=== PATIENT | female | born 1930 ===

== ENCOUNTER 2017-06-26 08:38 | Inpatient (IN) | payer MEDICARE, MEDICAID ==
[2017-06-26 08:45] VITALS: BMI 33.4
[2017-06-26] MEDS ORDERED: Sodium Chloride 0.9% 1,000 ML IV STA ×2 (09:17)
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
[2017-06-26 09:49] LABS: VENOUS BLOOD GAS BASE EXCESS -3.3 mmol/L (0.0-2.0); VENOUS BLOOD GAS PCO2 51 mmHg (40-60); VENOUS BLOOD PH 7.28 (7.32-7.43)
[2017-06-26 10:04] LABS: BASO % 0.5 % (0.0-2.0); EOS # 0.2 K/uL (0.0-0.7); EOS % 2.1 % (0.0-4.0); HEMATOCRIT 39.8 % (34.0-47.0); LYMPH # 2.1 K/uL (1.0-4.3); LYMPH % 27.1 % (20.0-40.0); MEAN CELL VOLUME 99.4 fl (81.0-99.0); MEAN CORPUSCULAR HEMOGLOBIN 33.4 pg (27.0-31.0); MEAN CORPUSCULAR HGB CONC 33.6 g/dL (33.0-37.0); MEAN PLATELET VOLUME 10.3 fl (7.2-11.7); MONO # 0.7 K/uL (0.0-0.8); MONO % 9.1 % (0.0-10.0); NEUT # 4.8 K/uL (1.8-7.0); NEUT % 61.2 % (50.0-75.0); NRBC % 0.2 % (0.0-0.0); RED CELL DISTRIBUTION WIDTH 13.5 % (11.5-14.5); WHITE BLOOD COUNT 7.8 K/uL (4.8-10.8)
[2017-06-26 10:10] LABS: ALB/GLOB RATIO 1.3 (1.0-2.1); ALCOHOL SERUM 50 mg/dl (0-10); ALKALINE PHOSPHATASE 65 U/L (38-126); ALT/SGPT 36 U/L (9-52); AST/SGOT 32 U/L (14-36); BILIRUBIN,TOTAL 0.3 mg/dl (0.2-1.3); BLOOD UREA NITROGEN 26 mg/dl (7-17); CALCIUM 9.8 mg/dL (8.4-10.2); CARBON DIOXIDE 22 mmol/L (22-30); CHLORIDE 108 mmol/L (98-107); GFR AFRICAN-AMERICAN 52; GLUCOSE,RANDOM 162 mg/dL (65-105); POTASSIUM 4.6 MMOL/L (3.6-5.0); SODIUM 142 mmol/l (132-148)
[2017-06-26 10:32] LABS: URINE BACTERIA RARE (<OCC); URINE BILIRUBIN NEGATIVE (NEGATIVE); URINE BLOOD SMALL (NEGATIVE); URINE COLOR STRAW (YELLOW); URINE GLUCOSE (UA) NEG (Normal); URINE KETONE NEGATIVE (NEGATIVE); URINE LEUKOCYTE ESTERASE SMALL Leu/uL (Negative); URINE PROTEIN NEGATIVE (NEGATIVE); URINE UROBILINOGEN 0.2-1.0 mg/dL (0.2-1.0); WBC URINE 12 /hpf (0-5)
[2017-06-26 10:34] LABS: RBC URINE 8 /hpf (0-3)
[2017-06-26] MEDS ORDERED: Naproxen 500 MG TAB PO ONE ×2 (11:35→12:08)
--- NOTE | 2017-06-26 12:53 | MRI ---
PROCEDURE: MRI brain dated 07/23/2017. HISTORY: Syncope. Fall. COMPARISON: Comparison made with prior MRI brain 03/08/2015. TECHNIQUE: Multiplanar, multisequence MR images of the brain were obtained without intravenous contrast enhancement. Note the study is somewhat limited due to motion artifact. FINDINGS: HEMORRHAGE: The current study reveals what is felt to represent a very tiny amount of subarachnoid hemorrhage within the mid and posterior frontal sulci near the vertex. These changes are best seen on axial FLAIR images number sign 13 through 17. No evidence of hemosiderin deposition. DWI: The no evidence of acute infarct seen on diffusion-weighted sequence No evidence of an acute or early subacute infarction. BRAIN PARENCHYMA: No mass effect or edema. No atrophy or chronic microvascular ischemic changes. VENTRICLES: Unremarkable. No hydrocephalus. CRANIUM: There are no acute calvarial fractures however MRI is not the mild to assess for calvarial fracture and given the subarachnoid hemorrhage, follow-up CT scan would be better suited to evaluate calvarial fractures. ORBITS: Changes of left-sided cataract surgery again noted. PARANASAL SINUSES/MASTOIDS: Clear VASCULAR SYSTEM: Visualized major vascular flow voids at skull base are patent. OTHER FINDINGS: None. IMPRESSION: Limited motion degraded study. There is a tiny amount of subarachnoid hemorrhage seen within bilateral mid and posterior frontal sulci at the vertex as described ; the amount, appearance and location of which is most consistent with posttraumatic subarachnoid hemorrhage. No evidence of acute infarct. Mild generalized volume loss. These findings discussed with Dr. Banks at approximately 12:30 p.m. with written down and read back verification of
--- NOTE | 2017-06-26 13:38 | RAD ---
PROCEDURE: Pelvis dated 06/26/2017. HISTORY: Status post fall COMPARISON: Comparison made with radiographs of the right hip dated 02/20/2014. FINDINGS: BONES: No evidence of acute displaced fracture nor dislocation. Both femoral heads are appropriately located within the respective acetabula. Mild bilateral hip joint space narrowing. Mild enthesophyte that changes seen arising from the lateral margins of both iliac wings. Mild degenerative spondylosis lower lumbosacral spine. JOINTS: As above. OTHER FINDINGS: None. IMPRESSION: No acute fractures. If symptoms persist or occult fracture suspected clinically consider followup on CT scan of the pelvis and both hips. Mild DJD.
--- NOTE | 2017-06-26 15:02 | RAD ---
PROCEDURE: Left Wrist Radiographs. HISTORY: fall with deformity COMPARISON: None. FINDINGS: BONES: There is a comminuted intra-articular fracture of the distal left radius and fracture of the ulna styloid with possible fracture of the distal ulna as well. JOINTS: Triscaphe degenerative osteoarthritis with degenerative changes of the trapezial/ 1st and CP joint. SOFT TISSUES: There appears be minor surrounding soft tissue swelling. OTHER FINDINGS: None. IMPRESSION: Comminuted intra-articular fracture of the distal left radius and fracture of the ulna styloid. There may also be a fracture of the distal ulna as well. Clinical correlation recommended. DJD as above.
--- NOTE | 2017-06-26 15:53 | RAD ---
PROCEDURE: CHEST RADIOGRAPH, 1 VIEW HISTORY: fall for admission COMPARISON: Comparison made with chest radiograph 05/14/2013 FINDINGS: LUNGS: Minor bibasilar atelectasis. There is a vague round/elliptical shaped radiopaque density in the left CP angle region which could represent confluence of shadow artifact however possibility of a parenchymal nodule should be excluded and therefore followup nonemergent CT scan of the chest is recommended. PLEURA: Suspect minor biapical pleural thickening. No pneumothorax or pleural fluid seen. CARDIOVASCULAR: Heart appears mildly enlarged. Aorta minimally ectatic and uncoiled. OSSEOUS STRUCTURES: No significant abnormalities. VISUALIZED UPPER ABDOMEN: Normal. OTHER FINDINGS: None. IMPRESSION: Minor bibasilar atelectasis. There is a vague round/elliptical shaped radiopaque density in the left CP angle region which could represent confluence of shadow artifact however possibility of a parenchymal nodule should be excluded and therefore followup nonemergent CT scan of the chest is recommended. Note this report was placed in PA review folder for followup. .
[2017-06-26] MEDS ORDERED: Sodium Chloride 0.9% 1,000 ML IV SCH (16:00)
[2017-06-26] MEDS ORDERED: Glucagon Recombinant 1 mg Inj IM PRN (16:03)
[2017-06-26] MEDS ORDERED: Dextrose 50% SYRINGE Inj (50 ml) IV PRN (16:03)
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
[2017-06-26] MEDS ORDERED: Insulin Lispro (humaLOG) 100 Units/ml Inj SC SCH (16:30)
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
[2017-06-26] MEDS: Insulin Lispro (humaLOG) 100 Units/ml Inj SC SCH ×2 (18:39→23:26)
[2017-06-26] MEDS: Insulin Detemir 100 Units/ml Inj SC SCH (23:02)
[2017-06-27] MEDS ORDERED: Influenza Vaccine 18yr & older 0.5 ML/45 MCG SYR IM ONE (07:48)
[2017-06-27] MEDS: Insulin Regular 100 units/ml SC SCH ×3 (07:56→17:02)
--- NOTE | 2017-06-27 08:50 | CP.PCM.PN ---
Subjective - Date & Time of Evaluation Date of Evaluation: 06/27/17 Time of Evaluation: 08:48 - Subjective Subjective: Family Medicine Progress Note - Dr. Coreas 86 y/o female seen at bedside this morning for subarachnoid hemorrhage s/p fall/ syncopal episode. [employer] #[id number] utilized for [employer]. Pt denies any acute events overnight and says she slept well. Pt still cannot remember how she fell and denies feeling dizzy or lightheaded prior to falling. Pt says that she can only remember waking up on the floor. At present, pt says her only pain is in her left wrist. Pt denies having any head pain or headache. Pt denies F/C/N/V/CP/SOB. Pt says she feels generally well today. Objective - Vital Signs/Intake and Output Vital Signs (last 24 hours): Temp Pulse Resp BP Pulse Ox 97.6 F 63 20 170/73 H 98 06/27/17 08:09 06/27/17 08:09 06/27/17 08:09 06/27/17 08:09 06/27/17 08:09 - Medications Medications: Current Medications Acetaminophen (Tylenol 325mg Tab) 650 mg PO Q6 PRN PRN Reason: Pain, moderate (4-7) Atorvastatin Calcium (Lipitor) 40 mg PO HS [facility] Last Admin: 06/26/17 23:03 Dose: 40 mg Chlorthalidone (Hygroton) 12.5 mg PO DAILY [facility] Dextrose (Dextrose 50% Inj) 0 ml IV STAT PRN; Protocol PRN Reason: Hypoglycemia Protocol Dextrose (Glutose 15) 0 gm PO ONCE PRN; Protocol PRN Reason: Hypoglycemia Protocol Glucagon (Glucagen Diagnostic Kit) 0 mg IM STAT PRN; Protocol PRN Reason: Hypoglycemia Protocol Insulin Detemir (Levemir) 18 units SC HS [facility] Last Admin: 06/26/17 23:02 Dose: 18 units Insulin Human Lispro (Humalog) 0 units SC ACHS [facility] PRN Reason: Protocol Last Admin: 06/26/17 23:26 Dose: Not Given Insulin Human Regular (Humulin R) 4 units SC AC [facility] Lisinopril (Zestril) 40 mg PO DAILY [facility] Multivitamins/Minerals (Therapeutic-M Tab) 1 tab PO DAILY [facility] Ondansetron HCl (Zofran Inj) 4 mg IVP Q6 PRN PRN Reason: Nausea/Vomiting Sertraline HCl (Zoloft) 100 mg PO DAILY [facility] Sitagliptin Phosphate (Januvia) 50 mg PO DAILY [facility] - Labs Labs: 06/26/17 09:50 06/26/17 09:50 PT 11.6 Seconds (9.8-13.1) 06/26/17 09:50 INR 1.0 (0.9-1.2) 06/26/17 09:50 APTT 29.0 Seconds (25.6-37.1) 06/26/17 09:50 - Constitutional Appears: Well, Non-toxic, No Acute Distress - Head Exam Head Exam: NORMOCEPHALIC Additional comments: s/p left head contusion, no gross deformity noted Ecchymosis noted to left upper lip - Eye Exam Eye Exam: EOMI, Normal appearance Pupil Exam: PERRL - ENT Exam ENT Exam: Mucous Membranes Moist, Normal Exam - Neck Exam Neck Exam: Full ROM, Normal Inspection. absent: Lymphadenopathy, Tenderness - Respiratory Exam Respiratory Exam: Clear to Ausculation Bilateral, NORMAL BREATHING PATTERN. absent: Chest Wall Tenderness, Rales, Wheezes, Respiratory Distress, Stridor - Cardiovascular Exam Cardiovascular Exam: REGULAR RHYTHM, +S1, +S2. absent: Gallop, JVD - GI/Abdominal Exam GI & Abdominal Exam: Soft, Normal Bowel Sounds - Rectal Exam Rectal Exam: Deferred - Extremities Exam Extremities Exam: Normal Capillary Refill, Normal Inspection. absent: Calf Tenderness, Pedal Edema Additional comments: splint intact to left wrist and forearm - Neurological Exam Neurological Exam: Alert, Awake, Oriented x3 - Psychiatric Exam Psychiatric exam: Normal Affect, Normal Mood - Skin Skin Exam: Dry, Intact, Warm Assessment and Plan - Assessment and Plan (Free Text) Assessment: 86 y/o female with PMhx of HTN, IDDM2, HLD, s/p CVA admitted for syncope with traumatic subarachnoid hemorrhage and left distal ulna/radius fracture Plan: 1) Syncope -possibly secondary to seizure/arrythmia/ETOH -s/p 2 L NS in ED due to elevated total creatinine kinase (total OO=298) -Prior ECHO in 09/2016: normal LVEF, normal systolic function -continue to monitor in telemetry -Dr. Alcantara consulted for cardiology -Repeat ECHO shows normal LVEF, normal LV size and wall thickness, mild dilation of L atrium, mild tricuspid regurgitation -As per Neurology: brain MRI w/o contrast, CTA head/neck and EEGs ordered -per radiology, CTA head/neck cannot be performed due to patient's kidney function (cannot give contrast) -Aggrenox held until repeat CT, f/u results -continue PT/OT -c/w home meds 2) Traumatic Subarachnoid Hemorrhage -Brain MRI shows trace amount of subarachnoid hemorrhage in bilateral mid and posterior frontal sulci -Neurosurgery consulted Dr. Hayes -no surgical intervention at this time -pt cleared for D/C from neurosurgery standpoint -f/u repeat CT today -continue PT/OT 3) Left Distal Ulna/Radius Fracture -currently in wrist splint -pain control -Dr. Alcantara consulted, recommendations appreciated -CT of LUE pending -Vit D levels pending -start Calcium/Vit D 4) IDDM2 -stable -c/w home meds, however Regular Insulin substituted for Humalog 2/2 to shortage -HbA1C in 02/2017: 7.7 -insulin coverage scale -monitor BS 5) HTN -c/w home meds -started on Amlodipine per Dr. Alcantara -monitor BP 6) Chronic Kidney Disease -Stage 3B -improving as when compared to 01/2017 values -BUN/Cr: 26/1.2 -GFR: 43 -2L IV NS hydration given -monitor 7) Insomnia -c/w Zoloft (home med), dose decreased 8) Diet -heart healthy/low carb diet 9) Code Status -Full Code 10) DVT Prophylaxis -SCDs at present -Aggrenox held until repeat CT head
[2017-06-27] MEDS: Multivitamin With Minerals Tab PO SCH (09:12)
[2017-06-27] MEDS: Insulin Lispro (humaLOG) 100 Units/ml Inj SC SCH ×4 (09:14→23:18)
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
--- NOTE | 2017-06-27 10:16 | CP.PCM.PN ---
Subjective - Date & Time of Evaluation Date of Evaluation: 06/27/17 Time of Evaluation: 10:15 - Subjective Subjective: s/p fall MRI shows small trace of subarchnoid blood no deficts awakw alert clear for d/c home from my point of view Objective - Vital Signs/Intake and Output Vital Signs (last 24 hours): Temp Pulse Resp BP Pulse Ox 97.6 F 63 20 170/73 H 98 06/27/17 08:09 06/27/17 09:13 06/27/17 08:09 06/27/17 09:13 06/27/17 08:09 - Medications Medications: Current Medications Acetaminophen (Tylenol 325mg Tab) 650 mg PO Q6 PRN PRN Reason: Pain, moderate (4-7) Amlodipine Besylate (Norvasc) 10 mg PO DAILY [facility] Atorvastatin Calcium (Lipitor) 40 mg PO HS [facility] Last Admin: 06/26/17 23:03 Dose: 40 mg Chlorthalidone (Hygroton) 12.5 mg PO DAILY [facility] Dextrose (Dextrose 50% Inj) 0 ml IV STAT PRN; Protocol PRN Reason: Hypoglycemia Protocol Dextrose (Glutose 15) 0 gm PO ONCE PRN; Protocol PRN Reason: Hypoglycemia Protocol Glucagon (Glucagen Diagnostic Kit) 0 mg IM STAT PRN; Protocol PRN Reason: Hypoglycemia Protocol Insulin Detemir (Levemir) 18 units SC HS [facility] Last Admin: 06/26/17 23:02 Dose: 18 units Insulin Human Lispro (Humalog) 0 units SC [facility] PRN Reason: Protocol Last Admin: 06/27/17 09:14 Dose: Not Given Insulin Human Regular (Humulin R) 4 units SC AC [facility] Lisinopril (Zestril) 40 mg PO DAILY [facility] Last Admin: 06/27/17 09:13 Dose: 40 mg Multivitamins/Minerals (Therapeutic-M Tab) 1 tab PO DAILY [facility] Last Admin: 06/27/17 09:12 Dose: 1 tab Ondansetron HCl (Zofran Inj) 4 mg IVP Q6 PRN PRN Reason: Nausea/Vomiting Sertraline HCl (Zoloft) 100 mg PO DAILY [facility] Last Admin: 06/27/17 09:12 Dose: 100 mg Sitagliptin Phosphate (Januvia) 50 mg PO DAILY [facility] Last Admin: 06/27/17 09:12 Dose: 50 mg - Labs Labs: 06/26/17 09:50 06/26/17 09:50 PT 11.6 Seconds (9.8-13.1) 06/26/17 09:50 INR 1.0 (0.9-1.2) 06/26/17 09:50 APTT 29.0 Seconds (25.6-37.1) 06/26/17 09:50
--- NOTE | 2017-06-27 15:10 | CARD ---
APPROVED REPORT EXAM: Two-dimensional and M-mode echocardiogram with Doppler and color Doppler. Other Information Quality : AverageRhythm : NSR Technically limited study due to Pt has Briken LT Arm. INDICATION Syncope 2D DIMENSIONS IVSd0.87 (0.7-1.1cm)LVDd4.35 (3.9-5.9cm) LVOT Diameter2.06 (1.8-2.4cm)PWd0.65 (0.7-1.1cm) IVSs1.18 (0.8-1.2cm)LVDs2.42 (2.5-4.0cm) FS (%) 44.4 %PWs1.20 (0.8-1.2cm) M-Mode DIMENSIONS Left Atrium (MM)4.40 (2.5-4.0cm)IVSd0.69 (0.7-1.1cm) Aortic Root2.48 (2.2-3.7cm)LVDd6.25 (4.0-5.6cm) Aortic Cusp Exc.1.59 (1.5-2.0cm)PWd0.89 (0.7-1.1cm) IVSs1.26 cmFS (%) 37 % LVDs3.97 (2.0-3.8cm)PWs1.09 cm Mitral Valve MV E Amkycxqd85.4cm/sMV DECEL [id number] A Rpgxjurw61.2cm/s MV NTE97otX/A ratio1.0MVA (PHT)2.69cm2 TDI Lateral E' Peak V11.49cm/sMedial E' Peak V6.84cm/sE/Lateral E'7.2 E/Medial E'12.0 LEFT VENTRICLE The left ventricle is normal size. There is normal left ventricular wall thickness. The left ventricular function is normal. The left ventricular ejection fraction is - 70%. There is normal LV segmental wall motion. Transmitral Doppler flow pattern is Grade I-abnormal relaxation pattern. No left ventricle thrombus noted on this study. There is no ventricular septal defect visualized. There is no left ventricular aneurysm. There is no mass noted in the left ventricle. RIGHT VENTRICLE The right ventricle is normal size. There is normal right ventricular wall thickness. The right ventricular systolic function is normal. ATRIA The left atrium is mildly dilated. There is no thrombus suspected in the left atrium. The right atrium size is normal. The interatrial septum is intact with no evidence for an atrial septal defect. AORTIC VALVE The aortic valve is normal in structure. No aortic regurgitation is present. There is no aortic valvular stenosis. MITRAL VALVE The mitral valve is normal in structure. There is no evidence of mitral valve prolapse. There is no mitral valve stenosis. There is no mitral valve regurgitation noted. TRICUSPID VALVE The tricuspid valve is normal in structure. There is mild tricuspid regurgitation. There is no tricuspid valve prolapse or vegetation. There is no tricuspid valve stenosis. PULMONIC VALVE The pulmonary valve is normal in structure. doppler studies of the pulmonic valve were not performed GREAT VESSELS The aortic root is normal in size. The IVC is normal in size and collapses >50% with inspiration. PERICARDIAL EFFUSION The pericardium appears normal. There is no pleural effusion. <Conclusion> The left ventricle is normal in size and wall thickness. The left ventricular function is normal. The left ventricular ejection fraction is - 70%. The left atrium is mildly dilated. The mitral, aortic and tricuspid valves are normal. There is mild tricuspid regurgitation.
[2017-06-27] MEDS: Calcium-Vit D 500 mg-200 Units Tab UD PO SCH (17:00)
--- NOTE | 2017-06-27 19:01 | CT ---
PROCEDURE: CT HEAD WITHOUT CONTRAST. HISTORY: subarachnoid bleed COMPARISON: 11/01/2014 TECHNIQUE: Axial computed tomography images were obtained through the head/brain without intravenous contrast. Coronal and sagittal reconstructed images. Radiation dose: Total exam DLP = 1131.75 mGy-cm. This CT exam was performed using one or more of the following dose reduction techniques: Automated exposure control, adjustment of the mA and/or kV according to patient size, and/or use of iterative reconstruction technique. FINDINGS: HEMORRHAGE: No intracranial hemorrhage. BRAIN: No mass effect or edema. Age related senescent change Previously identified small cerebellar infarct on the right is not appreciated with same degree of clarity, however, the finding is unchanged. Small lacune or infarct on the right similarly unchanged. VENTRICLES: Unremarkable. No hydrocephalus. CALVARIUM: Unremarkable. PARANASAL SINUSES: Unremarkable as visualized. No significant inflammatory changes. MASTOID AIR CELLS: Unremarkable as visualized. No inflammatory changes. OTHER FINDINGS: None. IMPRESSION: No acute intracranial abnormalities. No significant findings to account for the clinical presentation. No significant interval change compared to the prior examination(s).
--- NOTE | 2017-06-27 20:08 | CT ---
EXAM: CT Left Upper Extremity Without Intravenous Contrast, Wrist EXAM DATE/TIME: 06/26/2017 7:47 PM CLINICAL HISTORY: 86 years old, female; Injury or trauma; Fall; Initial encounter; Fracture, traumatic injury; Closed fracture; Wrist; Left; Additional info: Left wrist FX as per ortho TECHNIQUE: Axial computed tomography images of the left wrist without intravenous contrast. All CT scans at this facility use one or more dose reduction techniques, viz.: automated exposure control; ma/kV adjustment per patient size (including targeted exams where dose is matched to indication; i.e. head); or iterative reconstruction technique. Coronal and sagittal reformatted images were created and reviewed. COMPARISON: Recent left wrist radiographs of 2017-06-26 FINDINGS: LIMITATIONS: Mild to moderate streak/motion artifact. BONES/JOINTS: Comminuted, intra-articular fracture of the distal radius. There is significant associated impaction of fracture fragments. There are at least 3 major fracture fragments. There is up to 3 mm separation of fracture fragments at the articular surface and slight depression at the articular surface. No evidence of significant associated angulation. Marked osteoarthritic changes at the first carpometacarpal joint. Degenerative subchondral cysts noted within multiple additional carpal bones. Alignment of the carpal bones is within normal limits. No additional acute fractures seen. IMPRESSION: - Acute, comminuted, intra-articular fracture of the distal radius, associated with significant impaction of fracture fragments. Please see above for a full description. - See above for remaining findings.
[2017-06-27] MEDS: Insulin Detemir 100 Units/ml Inj SC SCH (23:16)
[2017-06-28 05:41] LABS: BASO % 0.5 % (0.0-2.0); EOS # 0.3 K/uL (0.0-0.7); EOS % 3.5 % (0.0-4.0); HEMATOCRIT 34.4 % (34.0-47.0); LYMPH # 1.7 K/uL (1.0-4.3); LYMPH % 23.8 % (20.0-40.0); MEAN CELL VOLUME 99.9 fl (81.0-99.0); MEAN CORPUSCULAR HEMOGLOBIN 32.9 pg (27.0-31.0); MEAN CORPUSCULAR HGB CONC 32.9 g/dL (33.0-37.0); MEAN PLATELET VOLUME 10.5 fl (7.2-11.7); MONO # 0.6 K/uL (0.0-0.8); MONO % 8.2 % (0.0-10.0); NEUT # 4.7 K/uL (1.8-7.0); RED CELL DISTRIBUTION WIDTH 12.8 % (11.5-14.5); WHITE BLOOD COUNT 7.3 K/uL (4.8-10.8)
[2017-06-28 06:18] LABS: BLOOD UREA NITROGEN 17 mg/dl (7-17); CALCIUM 8.8 mg/dL (8.4-10.2); CARBON DIOXIDE 26 mmol/L (22-30); CHLORIDE 107 mmol/L (98-107); GFR AFRICAN-AMERICAN > 60; GLUCOSE,RANDOM 148 mg/dL (65-105); POTASSIUM 4.3 MMOL/L (3.6-5.0); SODIUM 138 mmol/l (132-148)
--- NOTE | 2017-06-28 06:39 | CP.PCM.CON ---
History of Present Illness - History of Present Illness History of Present Illness: Orthopedic consultation Dr. Alcantara 86F complains of left wrist pain after fall at home. Pain is severe. Denies numbness/tingling. Denies pain in other extremities, denies neck pain/back pain. She was also found to have head injury from the fall. Review of Systems - Review of Systems All systems: reviewed and no additional remarkable complaints except - Constitutional Additional comments: no fever/chills - Cardiovascular Additional comments: No CP - Respiratory Additional comments: No SOB - Musculoskeletal Musculoskeletal: As Per HPI - Integumentary Integumentary: As Per HPI - Neurological Neurological: As Per HPI - Hematologic/Lymphatic Hematologic: absent: As Per HPI, Easy Bleeding, Easy Bruising, Lymphadenopathy, Other Past Patient History - Past Medical History & Family History Past Medical History?: Yes Past Family History: Reviewed and not pertinent - Past Social History Smoking Status: Never Smoked - CARDIAC Hx Cardiac Disorders: Yes Hx Hypercholesterolemia: Yes Hx Hypertension: Yes - PULMONARY Hx Respiratory Disorders: No - NEUROLOGICAL Hx Neurological Disorder: Yes HX Cerebrovascular Accident: Yes - HEENT Hx Cataracts: Yes - RENAL Hx Chronic Kidney Disease: Yes Hx Dialysis: No - ENDOCRINE/METABOLIC Hx Endocrine Disorders: Yes Hx Diabetes Mellitus Type 2: Yes - HEMATOLOGICAL/ONCOLOGICAL Hx Blood Disorders: No Hx AIDS: No Hx Human Immunodeficiency Virus (HIV): No - INTEGUMENTARY Hx Dermatological Problems: No - MUSCULOSKELETAL/RHEUMATOLOGICAL Hx Falls: Yes - GASTROINTESTINAL Hx Constipation: Yes - GENITOURINARY/GYNECOLOGICAL Hx Genitourinary Disorders: No - PSYCHIATRIC Hx Psychophysiologic Disorder: Yes Hx Depression: Yes Hx Substance Use: No - SURGICAL HISTORY Hx Cataract Extraction: Yes Hx Herniorrhaphy: Yes (Abdominal hernia repair) Hx Hysterectomy: Yes - ANESTHESIA Hx Anesthesia: Yes Hx Anesthesia Reactions: No Hx Malignant Hyperthermia: No Has any member of the family had a problem w/ anesthesia?: No Meds Allergies/Adverse Reactions: Allergies Allergy/AdvReac Type Severity Reaction Status Date / Time No Known Allergies Allergy Verified 06/26/17 10:19 - Medications Medications: Current Medications Acetaminophen (Tylenol 325mg Tab) 650 mg PO Q6 PRN PRN Reason: Pain, moderate (4-7) Amlodipine Besylate (Norvasc) 10 mg PO DAILY [facility] Last Admin: 06/27/17 12:08 Dose: 10 mg Atorvastatin Calcium (Lipitor) 40 mg PO HS [facility] Last Admin: 06/27/17 23:16 Dose: 40 mg Calcium/Vitamin D (Oyster Shell Calcium/Vitamin D 500 Mg-200 Iu) 1 tab PO BIDWM [facility] Last Admin: 06/27/17 17:00 Dose: 1 tab Chlorthalidone (Hygroton) 12.5 mg PO DAILY [facility] Last Admin: 06/27/17 09:12 Dose: 12.5 mg Dextrose (Dextrose 50% Inj) 0 ml IV STAT PRN; Protocol PRN Reason: Hypoglycemia Protocol Dextrose (Glutose 15) 0 gm PO ONCE PRN; Protocol PRN Reason: Hypoglycemia Protocol Glucagon (Glucagen Diagnostic Kit) 0 mg IM STAT PRN; Protocol PRN Reason: Hypoglycemia Protocol Insulin Detemir (Levemir) 18 units SC [facility] Last Admin: 06/27/17 23:16 Dose: 18 units Insulin Human Lispro (Humalog) 0 units SC [facility] PRN Reason: Protocol Last Admin: 06/27/17 23:18 Dose: Not Given Insulin Human Regular (Humulin R) 4 units SC [facility] Last Admin: 06/27/17 17:02 Dose: 4 u Lisinopril (Zestril) 40 mg PO DAILY [facility] Last Admin: 06/27/17 09:13 Dose: 40 mg Multivitamins/Minerals (Therapeutic-M Tab) 1 tab PO DAILY [facility] Last Admin: 06/27/17 09:12 Dose: 1 tab Ondansetron HCl (Zofran Inj) 4 mg IVP Q6 PRN PRN Reason: Nausea/Vomiting Sertraline HCl (Zoloft) 50 mg PO DAILY [facility] Sitagliptin Phosphate (Januvia) 50 mg PO DAILY [facility] Last Admin: 06/27/17 09:12 Dose: 50 mg Physical Exam - Constitutional Appears: Well, No Acute Distress - Head Exam Additional comments: ecchymosis noted - Expanded Upper Extremities Exam Left Shoulder exam: normal inspection (non tender) Elbow exam: full ROM (non tender to elbow) Forearm Wrist exam: swelling Neuro motor exam: finger 2-5 abduction intact, thumb abduction, thumb IP flexion intact, thumb opposition intact, wrist extension intact Neurosensory exam: median nerve intact, radial nerve intact, ulnar nerve intact Vascular exam: normal capillary refill - Neurological Exam Neurological exam: Alert, Oriented x3 - Psychiatric Exam Psychiatric exam: Normal Affect, Normal Mood - Skin Skin Exam: Dry, Intact, Normal Color, Warm Results - Vital Signs Recent Vital Signs: Last Vital Signs Temp 98.6 F 06/28/17 05:00 Pulse 85 06/28/17 05:00 Resp 16 06/28/17 05:00 BP 150/69 06/28/17 05:00 Pulse Ox 96 06/28/17 05:00 - Labs Result Diagrams: 06/28/17 04:15 06/28/17 04:15 Labs: Laboratory Results - last 24 hr 06/27/17 06/27/17 06/27/17 11:43 16:41 21:23 WBC RBC Hgb Hct MCV MCH MCHC RDW Plt Count MPV Neut % (Auto) Lymph % (Auto) [place] % (Auto) Eos % (Auto) Baso % (Auto) Neut # Lymph # [place] # Eos # Baso # Sodium Potassium Chloride Carbon Dioxide Anion Gap BUN Creatinine Est GFR ( Amer) Est GFR (Non-Af Amer) POC Glucose (mg/dL) 205 H 276 H 265 H Random Glucose Calcium 06/28/17 06/28/17 06/28/17 04:15 04:15 05:22 WBC 7.3 RBC 3.45 L Hgb 11.3 L D Hct 34.4 MCV 99.9 H MCH 32.9 H MCHC 32.9 L RDW 12.8 Plt Count 141 MPV 10.5 Neut % (Auto) 64.0 Lymph % (Auto) 23.8 [place] % (Auto) 8.2 Eos % (Auto) 3.5 Baso % (Auto) 0.5 Neut # 4.7 Lymph # 1.7 [place] # 0.6 Eos # 0.3 Baso # 0.0 Sodium 138 Potassium 4.3 Chloride 107 Carbon Dioxide 26 Anion Gap 9 L BUN 17 Creatinine 1.0 Est GFR ( Amer) > 60 Est GFR (Non-Af Amer) 53 POC Glucose (mg/dL) 160 H Random Glucose 148 H Calcium 8.8 - Impressions Impression: Patient Name / ID : CALLI TRINH / [id number] Exam Date : 06/27/2017 18:22:19 ( Approved ) Study Comment : Sex / Age : F / 86Y Creator : Krystina Tan MD Dictator : Metalsmith Apprentice : Take Down Sorter : Krystina Tan MD Approver2 : Report Date : 06/27/2017 20:08:00 My Comment : [facility] Division of Radiology [address] [place] [address] Tel. no. Patient Name: ZIGGY MCCURDY Pt. [address]: [address] [place] [address] Rec #: [id number] [place] [address]: Darrion CROWLEY, Kyrie Pt CELL Order Location: H.TEL : 1930 Female Age: 86 Order #: [id number] Reason for exam: left wrist fx as per ortho CT Scan EXT UPPER W/O CONTRAST LEFT Exam Date: 06/26/17 This imaging exam was performed at [facility] EXAM: CT Left Upper Extremity Without Intravenous Contrast, Wrist EXAM DATE/TIME: 06/26/2017 7:47 PM CLINICAL HISTORY: 86 years old, female; Injury or trauma; Fall; Initial encounter; Fracture, traumatic injury; Closed fracture; Wrist; Left; Additional info: Left wrist FX as per ortho TECHNIQUE: Axial computed tomography images of the left wrist without intravenous contrast. All CT scans at this facility use one or more dose reduction techniques, viz.: automated exposure control; ma/kV adjustment per patient size (including targeted exams where dose is matched to indication; i.e. head); or iterative reconstruction technique. Coronal and sagittal reformatted images were created and reviewed. COMPARISON: Recent left wrist radiographs of 2017-06-26 FINDINGS: LIMITATIONS: Mild to moderate streak/motion artifact. BONES/JOINTS: Comminuted, intra-articular fracture of the distal radius. There is significant associated impaction of fracture fragments. There are at least 3 major fracture fragments. There is up to 3 mm separation of fracture fragments at the articular surface and slight depression at the articular surface. No evidence of significant associated angulation. Marked osteoarthritic changes at the first carpometacarpal joint. Degenerative subchondral cysts noted within multiple additional carpal bones. Alignment of the carpal bones is within normal limits. No additional acute fractures seen. IMPRESSION: - Acute, comminuted, intra-articular fracture of the distal radius, associated with significant impaction of fracture fragments. Please see above for a full description. - See above for remaining findings. Dictated By: Krystina Tan MD Dictated Date/Time: 06/27/172007 Signed By: Krystina Tan MD Date Signed: 2007 Transcribed By: [place] Transcribe Date/Time : 06/27/172007 RMMP02/VRD Patient Name / ID : CALLI TRINH / [id number] Exam Date : 06/26/2017 10:32:16 ( Approved ) Study Comment : Sex / Age : F / 86Y Creator : Dagoberto Archuelta MD Dictator : Metalsmith Apprentice : Take Down Sorter : Dagoberto Archuleta MD Approver2 : Report Date : 06/26/2017 15:00:58 My Comment : PROCEDURE: Left Wrist Radiographs. HISTORY: fall with deformity COMPARISON: None. FINDINGS: BONES: There is a comminuted intra-articular fracture of the distal left radius and fracture of the ulna styloid with possible fracture of the distal ulna as well. JOINTS: Triscaphe degenerative osteoarthritis with degenerative changes of the trapezial / 1st and CP joint. SOFT TISSUES: There appears be minor surrounding soft tissue swelling. OTHER FINDINGS: None. IMPRESSION: Comminuted intra-articular fracture of the distal left radius and fracture of the ulna styloid. There may also be a fracture of the distal ulna as well. Clinical correlation recommended. DJD as above. Assessment & Plan (1) Closed fracture of left distal radius Assessment and Plan: Comminuted intraarticular distal radius fracture CT scan reviewed indicated for ORIF neurosurgery consultation appreciated cardiology consulation appreciated, for echo today d/w Dr. Alcantara, will plan for ORIF Weds 06/29 Status: Acute (2) Displaced fracture of left ulna styloid process, initial encounter for closed fracture Assessment and Plan: see above Status: Acute
--- NOTE | 2017-06-28 08:57 | CP.PCM.PN ---
Subjective - Date & Time of Evaluation Date of Evaluation: 06/28/17 Time of Evaluation: 08:40 - Subjective Subjective: No new findings Echo images reviewed LV syst function normal (with diastolic dysfunction) No significant valvulopathy BP better controlled Medically stable to proceed with the planned Sx on Lt wrist for Fxed Lt radius. Objective - Vital Signs/Intake and Output Vital Signs (last 24 hours): Temp Pulse Resp BP Pulse Ox 98.8 F 85 20 159/71 H 95 06/28/17 08:00 06/28/17 08:00 06/28/17 08:00 06/28/17 08:00 06/28/17 08:00 Intake and Output: 06/28/17 06/28/17 06:59 18:59 Intake Total 300 Balance 300 - Medications Medications: Current Medications Acetaminophen (Tylenol 325mg Tab) 650 mg PO Q6 PRN PRN Reason: Pain, moderate (4-7) Amlodipine Besylate (Norvasc) 10 mg PO DAILY [facility] Last Admin: 06/27/17 12:08 Dose: 10 mg Atorvastatin Calcium (Lipitor) 40 mg PO HS [facility] Last Admin: 06/27/17 23:16 Dose: 40 mg Calcium/Vitamin D (Oyster Shell Calcium/Vitamin D 500 Mg-200 Iu) 1 tab PO BIDWM [facility] Last Admin: 06/27/17 17:00 Dose: 1 tab Chlorthalidone (Hygroton) 12.5 mg PO DAILY [facility] Last Admin: 06/27/17 09:12 Dose: 12.5 mg Dextrose (Dextrose 50% Inj) 0 ml IV STAT PRN; Protocol PRN Reason: Hypoglycemia Protocol Dextrose (Glutose 15) 0 gm PO ONCE PRN; Protocol PRN Reason: Hypoglycemia Protocol Glucagon (Glucagen Diagnostic Kit) 0 mg IM STAT PRN; Protocol PRN Reason: Hypoglycemia Protocol Insulin Detemir (Levemir) 18 units SC HS [facility] Last Admin: 06/27/17 23:16 Dose: 18 units Insulin Human Lispro (Humalog) 0 units SC [facility]S [facility] PRN Reason: Protocol Last Admin: 06/27/17 23:18 Dose: Not Given Insulin Human Regular (Humulin R) 4 units SC AC [facility] Last Admin: 06/27/17 17:02 Dose: 4 u Lisinopril (Zestril) 40 mg PO DAILY [facility] Last Admin: 06/27/17 09:13 Dose: 40 mg Multivitamins/Minerals (Therapeutic-M Tab) 1 tab PO DAILY [facility] Last Admin: 06/27/17 09:12 Dose: 1 tab Ondansetron HCl (Zofran Inj) 4 mg IVP Q6 PRN PRN Reason: Nausea/Vomiting Sertraline HCl (Zoloft) 50 mg PO DAILY [facility] Sitagliptin Phosphate (Januvia) 50 mg PO DAILY [facility] Last Admin: 06/27/17 09:12 Dose: 50 mg - Labs Labs: 06/28/17 04:15 06/28/17 04:15 PT 11.6 Seconds (9.8-13.1) 06/26/17 09:50 INR 1.0 (0.9-1.2) 06/26/17 09:50 APTT 29.0 Seconds (25.6-37.1) 06/26/17 09:50
--- NOTE | 2017-06-28 09:37 | CP.PCM.PN ---
Subjective - Date & Time of Evaluation Date of Evaluation: 06/28/17 Time of Evaluation: 09:35 - Subjective Subjective: Family Medicine Progress Note - Dr. Coreas 86 y/o female seen this morning resting comfortably in a chair. Pt denies any pain or discomfort at this time. Pt says her only complaint is the left wrist whenever she moves it. Splint to left forearm is clean, dry and intact. Pt says she was able to work with the physical therapist yesterday and that it went well. Pt denies F/C/N/V/CP/SOB. Objective - Vital Signs/Intake and Output Vital Signs (last 24 hours): Temp Pulse Resp BP Pulse Ox 98.8 F 85 20 159/71 H 95 06/28/17 08:00 06/28/17 08:00 06/28/17 08:00 06/28/17 08:00 06/28/17 08:00 Intake and Output: 06/28/17 06/28/17 06:59 18:59 Intake Total 300 Balance 300 - Medications Medications: Current Medications Acetaminophen (Tylenol 325mg Tab) 650 mg PO Q6 PRN PRN Reason: Pain, moderate (4-7) Amlodipine Besylate (Norvasc) 10 mg PO DAILY [facility] Last Admin: 06/27/17 12:08 Dose: 10 mg Atorvastatin Calcium (Lipitor) 40 mg PO HS [facility] Last Admin: 06/27/17 23:16 Dose: 40 mg Calcium/Vitamin D (Oyster Shell Calcium/Vitamin D 500 Mg-200 Iu) 1 tab PO BIDWM [facility] Last Admin: 06/27/17 17:00 Dose: 1 tab Chlorthalidone (Hygroton) 12.5 mg PO DAILY [facility] Last Admin: 06/27/17 09:12 Dose: 12.5 mg Dextrose (Dextrose 50% Inj) 0 ml IV STAT PRN; Protocol PRN Reason: Hypoglycemia Protocol Dextrose (Glutose 15) 0 gm PO ONCE PRN; Protocol PRN Reason: Hypoglycemia Protocol Glucagon (Glucagen Diagnostic Kit) 0 mg IM STAT PRN; Protocol PRN Reason: Hypoglycemia Protocol Insulin Detemir (Levemir) 18 units SC [facility] Last Admin: 06/27/17 23:16 Dose: 18 units Insulin Human Lispro (Humalog) 0 units SC [facility] PRN Reason: Protocol Last Admin: 06/27/17 23:18 Dose: Not Given Insulin Human Regular (Humulin R) 4 units SC AC [facility] Last Admin: 06/27/17 17:02 Dose: 4 u Lisinopril (Zestril) 40 mg PO DAILY [facility] Last Admin: 06/27/17 09:13 Dose: 40 mg Multivitamins/Minerals (Therapeutic-M Tab) 1 tab PO DAILY [facility] Last Admin: 06/27/17 09:12 Dose: 1 tab Ondansetron HCl (Zofran Inj) 4 mg IVP Q6 PRN PRN Reason: Nausea/Vomiting Sertraline HCl (Zoloft) 50 mg PO DAILY [facility] Sitagliptin Phosphate (Januvia) 50 mg PO DAILY [facility] Last Admin: 06/27/17 09:12 Dose: 50 mg - Labs Labs: 06/28/17 04:15 06/28/17 04:15 PT 11.6 Seconds (9.8-13.1) 06/26/17 09:50 INR 1.0 (0.9-1.2) 06/26/17 09:50 APTT 29.0 Seconds (25.6-37.1) 06/26/17 09:50 - Constitutional Appears: Well, Non-toxic, No Acute Distress - Head Exam Head Exam: NORMOCEPHALIC Additional comments: s/p left head contusion, no gross deformity noted - Eye Exam Eye Exam: EOMI, Normal appearance Pupil Exam: NORMAL ACCOMODATION, PERRL - ENT Exam ENT Exam: Mucous Membranes Moist, Normal Exam - Neck Exam Neck Exam: Full ROM, Normal Inspection. absent: Lymphadenopathy, Tenderness - Respiratory Exam Respiratory Exam: Clear to Ausculation Bilateral, NORMAL BREATHING PATTERN. absent: Wheezes, Respiratory Distress - Cardiovascular Exam Cardiovascular Exam: REGULAR RHYTHM, +S1, +S2. absent: JVD - GI/Abdominal Exam GI & Abdominal Exam: Soft, Normal Bowel Sounds - Rectal Exam Rectal Exam: Deferred - Extremities Exam Extremities Exam: Normal Capillary Refill, Normal Inspection. absent: Calf Tenderness Additional comments: -Splint to left forearm and wrist is clean, dry and intact -Pt is able to wiggle fingers without difficulty -No pedal or lower extremity edema, no calf tenderness - Neurological Exam Neurological Exam: Alert, Awake, Oriented x3 - Psychiatric Exam Psychiatric exam: Normal Affect, Normal Mood - Skin Skin Exam: Intact Additional comments: Ecchymosis noted to left upper lip Assessment and Plan - Assessment and Plan (Free Text) Assessment: 86 y/o female with PMhx of HTN, IDDM2, HLD, s/p CVA admitted for syncope with traumatic subarachnoid hemorrhage and left distal ulna/radius fracture, for ORIF tomorrow 06/29 Plan: 1) Syncope -possibly secondary to seizure/arrythmia/ETOH -s/p 2 L NS in ED due to elevated total creatinine kinase (total CF=788) -Prior ECHO in 09/2016: normal LVEF, normal systolic function -continue to monitor in telemetry -Dr. Alcantara consulted for cardiology -Repeat ECHO shows normal LVEF, normal LV size and wall thickness, mild dilation of L atrium, mild tricuspid regurgitation -As per Neurology: brain MRI w/o contrast, CTA head/neck and EEGs ordered -EEG shows no focal slowing, no seizure-like activity -per radiology, CTA head/neck cannot be performed due to patient's kidney function (cannot give contrast with GFR=43) -Repeat CT head shows no interval change, no acute intracranial abnormalities -continue PT/OT -c/w home meds 2) Traumatic Subarachnoid Hemorrhage -Brain MRI shows trace amount of subarachnoid hemorrhage in bilateral mid and posterior frontal sulci -Neurosurgery on consult Dr. Hayes -no surgical intervention at this time -pt cleared for D/C from neurosurgery standpoint -Repeat CT head shows no interval change, no acute intracranial abnormalities -continue PT/OT 3) Left Distal Ulna/Radius Fracture -currently in wrist splint -pain control -CT of left upper extremity shows acute comminuted intraarticular fracture of distal radius with significant impaction of fracture fragments -Dr. Alcantara on consult, plan for ORIF Weds 06/29 -pre-op labs in chart -pt was cleared by cardiac and neurosurgery for OR tomorrow -pt is medically optimized for surgery -Aggrenox and Lovenox held -NPO past midnight -Vit D levels pending 4) IDDM2 -stable at this time -c/w home meds, however Regular Insulin substituted for Humalog 2/2 to shortage -HbA1C in 02/2017: 7.7 -insulin coverage scale -monitor BS 5) HTN -c/w home meds -started on Amlodipine per Dr. Alcantara -monitor BP 6) Chronic Kidney Disease -Stage 3B -improving as when compared to 01/2017 values -BUN/Cr: 26/1.2 -GFR: 43; pt unable -2L IV NS hydration given -monitor kidney function 7) Insomnia -C/w Zoloft (home med), dose decreased to 50mg PO daily 8) Diet -Heart healthy/low carb diet 9) Code Status -Full Code 10) DVT Prophylaxis -SCDs at present -single dose of Heparin given today -Lovenox held prior to surgery tomorrow -Aggrenox held
[2017-06-28] MEDS ORDERED: Enoxaparin 40 mg Syringe SC SCH (10:00)
[2017-06-28] MEDS: Insulin Lispro (humaLOG) 100 Units/ml Inj SC SCH ×4 (10:06→22:16)
[2017-06-28] MEDS: Insulin Regular 100 units/ml SC SCH ×3 (10:08→17:26)
[2017-06-28] MEDS: Calcium-Vit D 500 mg-200 Units Tab UD PO SCH ×2 (10:11→17:29)
[2017-06-28] MEDS: Multivitamin With Minerals Tab PO SCH (10:12)
--- NOTE | 2017-06-28 10:21 | CARD ---
APPROVED REPORT EKG Measurement Heart [id number] ID [id number] <Conclusion> Normal sinus rhythm Nonspecific T wave abnormality Abnormal ECG
--- NOTE | 2017-06-28 13:44 | PCM.EEG ---
Electroencephalogram Report - Electroencephalogram Report Procedure Date: 06/27/17 Interpretation: Indication: Syncope. Medications were reviewed. Technical: This is a digitally recorded electroencephalogram. The international 10-20 electrode placement system is used for scalp electrode placement. Eighteen channels of scalp EEG are recorded Another channel was used for for ECG. The data are stored digitally and reviewed in reformatted montages for optimal display. Background: 9 to 10 hertz alpha activity was seen. Maximal over the posterior head region. These activities are symmetric on both sides. They attenuated with eye opening. Small amount of beta activities are seen. Description: No focal slowing was seen. No seizure like activity was observed during this recording. Patient entered into periods of drowsiness and light sleep. No abnormality was seen. Impression: Normal EEG. No focal slowing no seizure like activity was observed. Correlation with clinical findings is needed.
[2017-06-28] MEDS ORDERED: Morphine 15 mg Immediate Release Tab PO PRN (16:30)
[2017-06-28] MEDS: Morphine 15 mg Immediate Release Tab PO SCH (17:36)
[2017-06-28] MEDS: Insulin Detemir 100 Units/ml Inj SC SCH (22:11)
[2017-06-28] MEDS: Docusate-Senna 50 mg-8.6 mg Tab PO SCH (22:13)
[2017-06-29 06:12] LABS: HEMATOCRIT 33.2 % (34.0-47.0); MEAN CELL VOLUME 101.1 fl (81.0-99.0); MEAN CORPUSCULAR HEMOGLOBIN 32.8 pg (27.0-31.0); MEAN CORPUSCULAR HGB CONC 32.5 g/dL (33.0-37.0); WHITE BLOOD COUNT 7.1 K/uL (4.8-10.8)
[2017-06-29] MEDS: Insulin Lispro (humaLOG) 100 Units/ml Inj SC SCH ×4 (06:48→21:16)
[2017-06-29] MEDS ORDERED: Propofol 10 mg/ml Inj (20 ML) ONE (07:38)
[2017-06-29] MEDS ORDERED: Lidocaine 4% (Laryng-O-Jet) Kit MM ONE (07:39)
[2017-06-29] MEDS ORDERED: Phenylephrine 10 mg/ml Inj ONE (07:39)
[2017-06-29] MEDS ORDERED: Rocuronium 10 mg/ml (5 ml) ONE (07:39)
[2017-06-29] MEDS ORDERED: Ropivacaine 0.5% 30ML IV ONE (07:42)
[2017-06-29] MEDS ORDERED: Bacitracin Ointment 30 GM TUBE ONE (07:45)
[2017-06-29] MEDS ORDERED: ceFAZolin IV 1 gm in Dextrose 2 GM/100 ML BAG IVPB ONE (07:45)
[2017-06-29] MEDS ORDERED: Sodium Chloride 0.9% 500 ML IV ONE ×2 (08:05→10:00)
[2017-06-29] MEDS ORDERED: Lactated Ringer's 1,000 ML IV ONE (08:05)
[2017-06-29] MEDS ORDERED: Lidocaine 1% 5ml Abboject IV ONE (08:40)
[2017-06-29] MEDS ORDERED: Esmolol 100 mg/10ml Inj IV ONE (08:47)
[2017-06-29] MEDS ORDERED: Neostigmine Methylsulfate 2 MG/2 ML ML IV ONE (09:45)
[2017-06-29] MEDS ORDERED: Sevoflurane - Inhalation Anesthetic Liq (250 ml) ONE (10:06)
[2017-06-29] MEDS: Insulin Regular 100 units/ml SC SCH ×3 (10:08→16:32)
[2017-06-29] MEDS: Morphine 15 mg Immediate Release Tab PO SCH (10:08)
[2017-06-29] MEDS: Calcium-Vit D 500 mg-200 Units Tab UD PO SCH ×2 (10:09→16:35)
--- NOTE | 2017-06-29 10:26 | PCM.SURG1 ---
Surgeon's Initial Post Op Note - Surgeon's Notes Surgeon: Quinton Cardiovascular Technologist: ANGELA Stoddard/Jean Paul Orlando 2nd assist Type of Anesthesia: General Endo, Block Regional Anesthesia Administered By: DR Richy olmstead Pre-Operative Diagnosis: displaced/comminuted distal radius fx. post traumatic carpal tunne syndrome Operative Findings: as above. tenosynovitis flexor tendons. medain nerve comression Post-Operative Diagnosis: as above Operation Performed: ORIF displaced distal raidus fx(intraarticular). median neuroplasty. release transverse carpal ligamne t. partial flexor tenosynvoectomy. applx volar splint. positioning of fluoro/interpretation of video images Specimen/Specimens Removed: synvoium/cartuilage/bone Estimated Blood Loss: EBL {In ML}: 5 Blood Products Given: N/A Drains Used: No Drains Post-Op Condition: Good Date of Surgery/Procedure: 06/29/17 Time of Surgery/Procedure: 09:05 (toime in room/anaesyhesia oindcution time 8:05 )
[2017-06-29] MEDS ORDERED: Metoprolol 1 mg/ml Inj IVP ONE (10:36)
--- NOTE | 2017-06-29 10:54 | PCM.ANESB4 ---
Infraclavicular Block - Femoral Nerve Block Date of Procedure: 06/29/17 Anesthesiologist: Rajan Pre-Procedure Diagnosis: Left distal radius fracture Post-Procedure Diagnosis: same Procedure Performed: Brachial Plexus at the Infraclavicular area Left - Procedure Infraclavicular Block: The procedure was explained to the patient that it is for the post-operative pain management. Consent was obtained after a thorough discussion with the patient regarding the benefits and possible complications of local anesthetic block of the brachial plexus at the infraclavicular area. The patient was brought to the operating room and standard monitors were applied. Time-out was held with the circulating nurse to confirm the correct surgery and the appropriate block. After applying oxygen by nasal cannula and administering IV Sedation, patient's head was gently rotated away from the operative ___left____ _ shoulder and the area medial to the coracoid process and inferior to the clavicle was carefully palpated. The ultrasound transducer was then applied to the skin in the transverse plane and the brachial plexus was visualized surrounding the axillary artery and deep to the pectoralis major and minor muscles. After thorough identification, this area was prepped with Chloraprep and 1 % Lidocaine was injected subcutaneously for topical anesthesia. At this point, a #21 gauge Stimuplex 4-inch needle was inserted cephalad to the ultrasound transducer and inferior to the clavicle in-plane towards the posterior aspect of the axillary artery. Needle advancement was performed carefully under ultrasound visualization. Nerve stimulator was used and twitch of the affected extremity including fingers, hand, wrist and elbow was obtained at current of __0.4___MA. After repeated negative aspiration, __2___cc of _0.5__ __% ropivicaine was injected and this was followed with __8_ ___ cc of __0.5 % ___ropivicaine and 20 cc 0.5% bupivicaine with 1:200,000 epinephrine . Under ultrasound guidance the local anesthetics were observed surrounding the cords of the brachial plexus. The needle was removed intact. The patient had stable vital signs, was conscious and in no apparent distress. The patient tolerated the infraclavicular block of the brachial plexus well with stable vital signs was prepared for subsequent surgery.
[2017-06-29] MEDS ORDERED: Oxycodone/Acetaminophen 5/325 mg Tab PO PRN (12:14)
[2017-06-29] MEDS: Sodium Chloride 0.9% 1,000 ML IV SCH (12:55)
--- NOTE | 2017-06-29 14:08 | CP.PCM.PN ---
Subjective - Date & Time of Evaluation Date of Evaluation: 06/29/17 Time of Evaluation: 14:07 - Subjective Subjective: 86 y/o female seen at bedside this afternoon resting comfortably at time of visit. Pt states she went for surgery on her wrist this morning and has since eaten and urinated. Pt says she is not having any pain at this time. Pt denies F /C/N/V/CP/SOB. Pt says she is aware that she will be going to rehab soon for continue physical therapy. Objective - Vital Signs/Intake and Output Vital Signs (last 24 hours): Temp Pulse Resp BP Pulse Ox 98.3 F 70 18 119/78 99 06/29/17 13:00 06/29/17 13:00 06/29/17 13:00 06/29/17 13:00 06/29/17 13:00 Intake and Output: 06/29/17 06/29/17 06:59 18:59 Intake Total 1000 Balance 1000 - Medications Medications: Current Medications Acetaminophen (Tylenol 325mg Tab) 650 mg PO Q6 PRN PRN Reason: Pain, moderate (4-7) Amlodipine Besylate (Norvasc) 10 mg PO DAILY [facility] Last Admin: 06/28/17 10:10 Dose: 10 mg Atorvastatin Calcium (Lipitor) 40 mg PO HS [facility] Last Admin: 06/28/17 22:13 Dose: 40 mg Calcium/Vitamin D (Oyster Shell Calcium/Vitamin D 500 Mg-200 Iu) 1 tab PO BIDWM [facility] Last Admin: 06/29/17 10:09 Dose: Not Given Chlorthalidone (Hygroton) 12.5 mg PO DAILY [facility] Last Admin: 06/28/17 10:09 Dose: 12.5 mg Dextrose (Dextrose 50% Inj) 0 ml IV STAT PRN; Protocol PRN Reason: Hypoglycemia Protocol Dextrose (Glutose 15) 0 gm PO ONCE PRN; Protocol PRN Reason: Hypoglycemia Protocol Glucagon (Glucagen Diagnostic Kit) 0 mg IM STAT PRN; Protocol PRN Reason: Hypoglycemia Protocol Cefazolin Sodium/Dextrose (Ancef Iv 1 Gm Duplex) 1 gm in 50 mls @ 50 mls/hr IVPB Q8 [facility] PRN Reason: Protocol Sodium Chloride (Sodium Chloride 0.9%) 1,000 mls @ 50 mls/hr IV .Q20H [facility] Last Admin: 06/29/17 12:55 Dose: 0 mls Insulin Detemir (Levemir) 18 units SC [facility] Last Admin: 06/28/17 22:11 Dose: 18 units Insulin Human Lispro (Humalog) 0 units SC [facility] PRN Reason: Protocol Last Admin: 06/29/17 13:49 Dose: Not Given Insulin Human Regular (Humulin R) 4 units SC AC [facility] Last Admin: 06/29/17 13:50 Dose: Not Given Lisinopril (Zestril) 40 mg PO DAILY [facility] Last Admin: 06/28/17 10:12 Dose: 40 mg Morphine Sulfate (Morphine Immediate Release Tab) 15 mg PO BID [facility] Last Admin: 06/29/17 10:08 Dose: Not Given Morphine Sulfate (Morphine Immediate Release Tab) 15 mg PO Q4 PRN PRN Reason: Pain, moderate (4-7) Morphine Sulfate (Morphine) 2 mg IVP Q4 PRN PRN Reason: Pain, severe (8-10) Multivitamins/Minerals (Therapeutic-M Tab) 1 tab PO DAILY [facility] Last Admin: 06/28/17 10:12 Dose: 1 tab Ondansetron HCl (Zofran Inj) 4 mg IVP Q6 PRN PRN Reason: Nausea/Vomiting Oxycodone/Acetaminophen (Percocet 5/325 Mg Tab) 1 tab PO Q4 PRN PRN Reason: Pain, moderate (4-7) Stop: 07/02/17 12:15 Senna/Docusate Sodium (Senokot S 50 Mg-8.6 Mg) 2 tab PO [facility] Last Admin: 06/28/17 22:13 Dose: 2 tab Sertraline HCl (Zoloft) 50 mg PO DAILY [facility] Last Admin: 06/28/17 10:13 Dose: 50 mg Sitagliptin Phosphate (Januvia) 50 mg PO DAILY [facility] Last Admin: 06/28/17 10:10 Dose: 50 mg - Labs Labs: 06/29/17 05:40 06/28/17 04:15 PT 11.6 Seconds (9.8-13.1) 06/26/17 09:50 INR 1.0 (0.9-1.2) 06/26/17 09:50 APTT 29.0 Seconds (25.6-37.1) 06/26/17 09:50 - Head Exam Head Exam: NORMOCEPHALIC Additional comments: no evident signs of acute trauma, no apparent gross deformity upper left lip ecchymosis - Eye Exam Eye Exam: EOMI, Normal appearance Pupil Exam: NORMAL ACCOMODATION, PERRL - ENT Exam ENT Exam: Mucous Membranes Moist, Normal Exam - Neck Exam Neck Exam: Full ROM, Normal Inspection. absent: Lymphadenopathy, Tenderness - Respiratory Exam Respiratory Exam: Clear to Ausculation Bilateral, NORMAL BREATHING PATTERN. absent: Rales, Wheezes - Cardiovascular Exam Cardiovascular Exam: REGULAR RHYTHM, +S1, +S2. absent: Bradycardia, Tachycardia , Gallop, JVD - GI/Abdominal Exam GI & Abdominal Exam: Soft, Normal Bowel Sounds. absent: Distended, Tenderness - Rectal Exam Rectal Exam: Deferred - Extremities Exam Additional comments: left forearm in volar splint capillary refill normal to all digits - Neurological Exam Neurological Exam: Alert, Awake, Oriented x3 - Psychiatric Exam Psychiatric exam: Normal Affect, Normal Mood - Skin Skin Exam: Intact, Normal Color, Warm Assessment and Plan - Assessment and Plan (Free Text) Assessment: 86 y/o female with PMhx of HTN, IDDM2, HLD, s/p CVA admitted for syncope with traumatic subarachnoid hemorrhage and left distal ulna/radius fracture, for ORIF of L wrist fracture with ortho today 06/29 Plan: 1) Left Distal Ulna/Radius Fracture -CT of left upper extremity showed acute comminuted intraarticular fracture of distal radius with significant impaction of fracture fragments -Dr. Alcantara on consult -s/p ORIF of L comminuted wrist fracture this morning -pt in volar splint to left upper extremity, to be left clean, dry and intact -continue pain control with Morphine and Percocet 2) Fall with traumatic subarachnoid hemorrhage -possibly secondary to seizure/arrythmia/ETOH -s/p 2 L NS in ED due to elevated total creatinine kinase (total UA=146) -Prior ECHO in 09/2016: normal LVEF, normal systolic function -Dr. Alcantara on consult for cardiology -Repeat ECHO showed normal LVEF, normal LV size and wall thickness, mild dilation of L atrium, mild tricuspid regurgitation -As per neurology: brain MRI w/o contrast, CTA head/neck and EEGs ordered -EEG showed no focal slowing, no seizure-like activity -per radiology, CTA head/neck cannot be performed due to patient's kidney function (cannot give contrast with GFR=43) -Repeat CT head showed no interval change, no acute intracranial abnormalities -continue PT/OT -c/w home meds -Dr. Hayes on consult for neurosurgery -pt cleared for D/C from neurosurgery standpoint -Repeat CT head showed no interval change, no acute intracranial abnormalities -continue PT/OT -dispo planning is to acute rehab 3) IDDM2 -stable at this time -c/w home meds, however Regular Insulin substituted for Humalog 2/2 to shortage -HbA1C in 02/2017: 7.7 -insulin coverage scale -monitor BS 4) Hypertension -c/w home meds -started on Amlodipine per Dr. Alcantara -monitor BP 5) Chronic Kidney Disease -Stage 3B -improving as when compared to 01/2017 values -BUN/Cr: 17/1.0 -GFR: 53 -2L IV NS hydration given -monitor kidney function 6) Insomnia -C/w Zoloft 50mg PO daily 7) Diet -Heart healthy diet resumed post-operatively 8) Code Status -Full Code 9) DVT Prophylaxis -SCDs at present -Heparin SC x 2 doses given yesterday -Hold off on resuming Lovenox or Aggrenox until further recommendations from ortho and neuro
--- NOTE | 2017-06-29 14:25 | RAD ---
PROCEDURE: Fluoroscopy up to 1 hr. HISTORY: LEFT WRIST open reduction internal fixation COMPARISON: None TECHNIQUE: Standard protocol for this study/examination. FINDINGS: Total fluoroscopic time (continuous mode) utilized during the procedure: 5.6 seconds. IMPRESSION: Less than 1 hr fluoroscopic time utilized during performance of the procedure.
[2017-06-29 15:54] VITALS: RESP 20
[2017-06-29] MEDS: Multivitamin With Minerals Tab PO SCH (16:37)
[2017-06-29] MEDS: ceFAZolin IV 1 gm in Dextrose 1 GM/50 ML BAG IVPB SCH (16:46)
[2017-06-29] MEDS: Docusate-Senna 50 mg-8.6 mg Tab PO SCH (21:13)
[2017-06-29] MEDS: Insulin Detemir 100 Units/ml Inj SC SCH (21:16)
[2017-06-30] MEDS: ceFAZolin IV 1 gm in Dextrose 1 GM/50 ML BAG IVPB SCH ×2 (00:58→08:55)
[2017-06-30 06:27] LABS: HEMATOCRIT 36.1 % (34.0-47.0); MEAN CELL VOLUME 101.9 fl (81.0-99.0); MEAN CORPUSCULAR HEMOGLOBIN 32.7 pg (27.0-31.0); MEAN CORPUSCULAR HGB CONC 32.1 g/dL (33.0-37.0); RED CELL DISTRIBUTION WIDTH 13.1 % (11.5-14.5); WHITE BLOOD COUNT 8.2 K/uL (4.8-10.8)
[2017-06-30 07:12] LABS: ALB/GLOB RATIO 1.2 (1.0-2.1); BILIRUBIN,TOTAL 0.6 mg/dl (0.2-1.3); CALCIUM 8.4 mg/dL (8.4-10.2); POTASSIUM 4.8 MMOL/L (3.6-5.0); TOTAL PROTEIN 6.5 G/DL (6.3-8.2)
[2017-06-30] MEDS: Sodium Chloride 0.9% 1,000 ML IV SCH (08:12)
--- NOTE | 2017-06-30 08:26 | CP.PCM.PN ---
Objective - Vital Signs/Intake and Output Vital Signs (last 24 hours): Temp Pulse Resp BP Pulse Ox 99.4 F 91 H 20 120/68 90 L 06/30/17 08:13 06/30/17 08:13 06/30/17 08:13 06/30/17 08:13 06/30/17 08:13 Intake and Output: 06/30/17 06/30/17 06:59 18:59 Output Total 200 Balance -200 - Medications Medications: Current Medications Acetaminophen (Tylenol 325mg Tab) 650 mg PO Q6 PRN PRN Reason: Pain, moderate (4-7) Amlodipine Besylate (Norvasc) 10 mg PO DAILY [facility] Last Admin: 06/29/17 16:34 Dose: 10 mg Atorvastatin Calcium (Lipitor) 40 mg PO HS [facility] Last Admin: 06/29/17 21:13 Dose: 40 mg Calcium/Vitamin D (Oyster Shell Calcium/Vitamin D 500 Mg-200 Iu) 1 tab PO BIDWM [facility] Last Admin: 06/29/17 16:35 Dose: 1 tab Chlorthalidone (Hygroton) 12.5 mg PO DAILY [facility] Dextrose (Dextrose 50% Inj) 0 ml IV STAT PRN; Protocol PRN Reason: Hypoglycemia Protocol Dextrose (Glutose 15) 0 gm PO ONCE PRN; Protocol PRN Reason: Hypoglycemia Protocol Glucagon (Glucagen Diagnostic Kit) 0 mg IM STAT PRN; Protocol PRN Reason: Hypoglycemia Protocol Cefazolin Sodium/Dextrose (Ancef Iv 1 Gm Duplex) 1 gm in 50 mls @ 50 mls/hr IVPB Q8 [facility] PRN Reason: Protocol Last Admin: 06/30/17 00:58 Dose: 50 mls/hr Sodium Chloride (Sodium Chloride 0.9%) 1,000 mls @ 50 mls/hr IV .Q20H [facility] Last Admin: 06/30/17 08:12 Dose: Not Given Insulin Detemir (Levemir) 18 units SC HS [facility] Last Admin: 06/29/17 21:16 Dose: Not Given Insulin Human Lispro (Humalog) 0 units SC ACHS [facility] PRN Reason: Protocol Last Admin: 06/29/17 21:16 Dose: Not Given Insulin Human Regular (Humulin R) 4 units SC AC [facility] Last Admin: 06/29/17 16:32 Dose: 4 u Lisinopril (Zestril) 40 mg PO DAILY [facility] Morphine Sulfate (Morphine) 2 mg IVP Q4 PRN PRN Reason: Pain, severe (8-10) Last Admin: 06/30/17 00:54 Dose: 2 mg Multivitamins/Minerals (Therapeutic-M Tab) 1 tab PO DAILY [facility] Last Admin: 06/29/17 16:37 Dose: 1 tab Ondansetron HCl (Zofran Inj) 4 mg IVP Q6 PRN PRN Reason: Nausea/Vomiting Oxycodone/Acetaminophen (Percocet 5/325 Mg Tab) 1 tab PO Q4 PRN PRN Reason: Pain, moderate (4-7) Stop: 07/02/17 12:15 Last Admin: 06/29/17 19:42 Dose: 1 tab Senna/Docusate Sodium (Senokot S 50 Mg-8.6 Mg) 2 tab PO HS [facility] Last Admin: 06/29/17 21:13 Dose: 2 tab Sertraline HCl (Zoloft) 50 mg PO DAILY [facility] Last Admin: 06/29/17 16:37 Dose: 50 mg Sitagliptin Phosphate (Januvia) 50 mg PO DAILY [facility] Last Admin: 06/29/17 16:33 Dose: 50 mg - Labs Labs: 06/30/17 05:15 06/30/17 05:15 PT 11.6 Seconds (9.8-13.1) 06/26/17 09:50 INR 1.0 (0.9-1.2) 06/26/17 09:50 APTT 29.0 Seconds (25.6-37.1) 06/26/17 09:50 Assessment and Plan (1) Closed fracture of left distal radius Status: Acute (2) Displaced fracture of left ulna styloid process, initial encounter for closed fracture Status: Acute
--- NOTE | 2017-06-30 08:36 | OP ---
PROCEDURE DATE: 06/29/2017 PREOPERATIVE DIAGNOSES: 1. Displaced comminuted angulated distal radius fracture. 2. Post-traumatic carpal tunnel syndrome. POSTOPERATIVE DIAGNOSES: 1. Displaced comminuted angulated distal radius fracture. 2. Post-traumatic carpal tunnel syndrome without any compression of the median nerve. PROCEDURE: 1. Open reduction internal fixation displaced intra-articular angulated comminuted distal radius fracture. 2. Median neuroplasty. 3. Release of transverse carpal ligament. 4. Partial flexor tenosynovectomy. 5. Application of volar splint. 6. Positioning of fluoroscope, interpretation of video images. SURGEON: Tate Alcantara MD BPM DEVELOPER: Josefa Chambers, certified registered nursing cashier assistant. ANESTHESIA: General endotracheal anesthesia, Dr. Tolentino. COMPLICATIONS: No complications. DRAINS: No drains. OPERATIVE INDICATIONS: Keri Anderson is an 86-year-old woman who was admitted after a fall with a question of cerebral hemorrhage. The patient was cleared neurologically. The patient's heparin was stopped appropriately and the patient was taken to surgery. Pros, cons, risks and benefits of surgical approach were discussed at length in the presence of the culturally competent pan puller, Halima. The possibility of mechanical failure, infection, thromboembolic disease, secondary or tertiary surgery was discussed. The patient can no longer stand the discomfort and wished the surgery be accomplished. OPERATIVE PROCEDURE: After having obtained informed consent, after having identified the side, site, and procedure and a critical pause/time-out, after the satisfactory induction of the anesthetic, again the patient identified as Lisbet , in the supine position with all bony prominence well padded, the left upper extremity was prepped and free draped in the usual fashion for upper extremity surgery. The tourniquet had been applied but was not yet inflated. After exsanguinating the limb using a 4-inch Esmarch bandage, the tourniquet which had been applied was inflated to 250 mmHg. The operation was performed under 2.0 eyeglass magnification. An incision was described in the median palmar crease deviating radially and at the distal palmar crease deviating back ulnarly. The interval between the flexor carpi radialis and the palmaris longus was developed. This having been accomplished, the entire extent of the transverse carpal ligament was released and the underlying median nerve which was found to be compressed was released. This was found to be purplish with compression of the median nerve. A careful partial median neurolysis and neuroplasty of the median nerve was accomplished. This having been accomplished, there was found to be exuberant tenosynovitis. A partial flexor tenosynovectomy was accomplished. At this point in time, the interval between the palmaris longus and the flexor carpi radialis and radial artery was developed. The capsule was carefully divided. The fracture site which was found to be comminuted and angulated was identified. The fracture was reduced by exacerbating the deformity and reversing the deformity. The 3-hole locking plate, distal radial locking plate was applied to the volar aspect of the radius. A sequential drill hole was drilled, sounded and the appropriate sized screw was placed. Verification of position was offered on AP and lateral image intensification views. The position was found to be acceptable. The radiographs were taken in different planes. There was found to be no intrusion of the hardware into the joint. On range of motion of the joint there was no crepitus as well. The wound was thoroughly irrigated, the median nerve having been protected and ensnared with a Tay drain. The fracture site was found to be anatomically reduced on AP and lateral image intensification views. The wound was thoroughly irrigated and closed in layers with interrupted Vicryl and niesha and nylon. A Thanh Mcrae compression dressing and a volar splint was applied. Verification again is offered on image intensification views. The case was discussed with Dr. Coreas, postoperatively regarding anticoagulation, to be cleared with Neurology as well. Tate Alcantara MD
[2017-06-30] MEDS: Insulin Regular 100 units/ml SC SCH ×3 (08:45→16:23)
[2017-06-30] MEDS: Multivitamin With Minerals Tab PO SCH (09:00)
[2017-06-30] MEDS: Calcium-Vit D 500 mg-200 Units Tab UD PO SCH ×2 (09:00→16:29)
[2017-06-30] MEDS: Insulin Lispro (humaLOG) 100 Units/ml Inj SC SCH ×3 (09:00→16:26)
--- NOTE | 2017-06-30 10:04 | CP.PCM.PN ---
Subjective - Date & Time of Evaluation Date of Evaluation: 06/30/17 Time of Evaluation: 10:01 - Subjective Subjective: Ms. Anderson was seen and examined at the bedside. She is alert, oriented in all spheres. She denies any headache, dizziness, weakness, but complain of pain in her left arm, s/p arm surgery. Left arm is elevated wiyh pillows and pole. She further states of receiving pain medicine for her arm.She is able to answer all question and follow simple commands. There was no untoward events overnight. Objective - Vital Signs/Intake and Output Vital Signs (last 24 hours): Temp Pulse Resp BP Pulse Ox 99.4 F 91 H 20 120/68 90 L 06/30/17 08:13 06/30/17 08:59 06/30/17 08:13 06/30/17 08:59 06/30/17 08:13 Intake and Output: 06/30/17 06/30/17 06:59 18:59 Output Total 200 Balance -200 - Medications Medications: Current Medications Acetaminophen (Tylenol 325mg Tab) 650 mg PO Q6 PRN PRN Reason: Pain, moderate (4-7) Amlodipine Besylate (Norvasc) 10 mg PO DAILY [facility] Last Admin: 06/30/17 08:59 Dose: 10 mg Atorvastatin Calcium (Lipitor) 40 mg PO HS [facility] Last Admin: 06/29/17 21:13 Dose: 40 mg Calcium/Vitamin D (Oyster Shell Calcium/Vitamin D 500 Mg-200 Iu) 1 tab PO BIDWM [facility] Last Admin: 06/30/17 09:00 Dose: 1 tab Chlorthalidone (Hygroton) 12.5 mg PO DAILY [facility] Last Admin: 06/30/17 09:01 Dose: 12.5 mg Dextrose (Dextrose 50% Inj) 0 ml IV STAT PRN; Protocol PRN Reason: Hypoglycemia Protocol Dextrose (Glutose 15) 0 gm PO ONCE PRN; Protocol PRN Reason: Hypoglycemia Protocol Glucagon (Glucagen Diagnostic Kit) 0 mg IM STAT PRN; Protocol PRN Reason: Hypoglycemia Protocol Cefazolin Sodium/Dextrose (Ancef Iv 1 Gm Duplex) 1 gm in 50 mls @ 50 mls/hr IVPB Q8 [facility] PRN Reason: Protocol Last Admin: 06/30/17 08:55 Dose: 50 mls/hr Sodium Chloride (Sodium Chloride 0.9%) 1,000 mls @ 50 mls/hr IV .Q20H [facility] Last Admin: 06/30/17 08:12 Dose: Not Given Insulin Detemir (Levemir) 18 units SC HS [facility] Last Admin: 06/29/17 21:16 Dose: Not Given Insulin Human Lispro (Humalog) 0 units SC ACHS [facility] PRN Reason: Protocol Last Admin: 06/30/17 09:00 Dose: 1 u Insulin Human Regular (Humulin R) 4 units SC AC [facility] Last Admin: 06/30/17 08:45 Dose: 4 u Lisinopril (Zestril) 40 mg PO DAILY [facility] Last Admin: 06/30/17 08:52 Dose: 40 mg Morphine Sulfate (Morphine) 2 mg IVP Q4 PRN PRN Reason: Pain, severe (8-10) Last Admin: 06/30/17 09:23 Dose: 2 mg Multivitamins/Minerals (Therapeutic-M Tab) 1 tab PO DAILY [facility] Last Admin: 06/30/17 09:00 Dose: 1 tab Ondansetron HCl (Zofran Inj) 4 mg IVP Q6 PRN PRN Reason: Nausea/Vomiting Oxycodone/Acetaminophen (Percocet 5/325 Mg Tab) 1 tab PO Q4 PRN PRN Reason: Pain, moderate (4-7) Stop: 07/02/17 12:15 Last Admin: 06/29/17 19:42 Dose: 1 tab Senna/Docusate Sodium (Senokot S 50 Mg-8.6 Mg) 2 tab PO [facility] Last Admin: 06/29/17 21:13 Dose: 2 tab Sertraline HCl (Zoloft) 50 mg PO DAILY [facility] Last Admin: 06/30/17 09:01 Dose: 50 mg Sitagliptin Phosphate (Januvia) 50 mg PO DAILY [facility] Last Admin: 06/30/17 09:00 Dose: 50 mg - Labs Labs: 06/30/17 05:15 06/30/17 05:15 PT 11.6 Seconds (9.8-13.1) 06/26/17 09:50 INR 1.0 (0.9-1.2) 06/26/17 09:50 APTT 29.0 Seconds (25.6-37.1) 06/26/17 09:50 - Constitutional Appears: No Acute Distress - Head Exam Head Exam: ATRAUMATIC - Neurological Exam Neurological Exam: Alert, Awake, CN II-XII Intact, Oriented x3 Neuro motor strength exam: Left Upper Extremity: 2/1, Right Upper Extremity: 5, Left Lower Extremity: 4, Right Lower Extremity: 5 Additional comments: She is able to answer questions appropriately and follows simple commands. Sensation is intact. Assessment and Plan (1) Traumatic subarachnoid hemorrhage Assessment & Plan: Case discussed with Dr. Estrada, continue all current medical, physical, and occupational therapies. Status: Acute
[2017-06-30] MEDS ORDERED: Aspirin-Dipyridamole 200-25 mg ER Cap PO SCH (10:15)
[2017-06-30] MEDS ORDERED: Enoxaparin 40 mg Syringe SC SCH (11:45)
--- NOTE | 2017-06-30 11:48 | CP.PCM.PN ---
Subjective - Date & Time of Evaluation Date of Evaluation: 06/30/17 Time of Evaluation: 10:25 - Subjective Subjective: Medicine Progress Note- Dr. Coreas 86 y/o female seen at bedside this morning with attending Dr. Coreas. Patient admits to having moderate to severe pain in the left hand, mainly in her fingers. Patient says it hurts to try and wiggle her fingers. Patient admits to urinating and having a bowel movement since the surgery. Patient is tolerating her diet well. Patient denies F/C/N/V/CP/SOB. Patient has kept her wrist in the splint and it remains elevated on an IV pole. Objective - Vital Signs/Intake and Output Vital Signs (last 24 hours): Temp Pulse Resp BP Pulse Ox 99.4 F 91 H 20 120/68 90 L 06/30/17 08:13 06/30/17 08:59 06/30/17 08:13 06/30/17 08:59 06/30/17 08:13 Intake and Output: 06/30/17 06/30/17 06:59 18:59 Output Total 200 Balance -200 - Medications Medications: Current Medications Acetaminophen (Tylenol 325mg Tab) 650 mg PO Q6 PRN PRN Reason: Pain, moderate (4-7) Atorvastatin Calcium (Lipitor) 40 mg PO HS [facility] Last Admin: 06/29/17 21:13 Dose: 40 mg Calcium/Vitamin D (Oyster Shell Calcium/Vitamin D 500 Mg-200 Iu) 1 tab PO BIDWM [facility] Last Admin: 06/30/17 09:00 Dose: 1 tab Chlorthalidone (Hygroton) 12.5 mg PO DAILY [facility] Last Admin: 06/30/17 09:01 Dose: 12.5 mg Dextrose (Dextrose 50% Inj) 0 ml IV STAT PRN; Protocol PRN Reason: Hypoglycemia Protocol Dextrose (Glutose 15) 0 gm PO ONCE PRN; Protocol PRN Reason: Hypoglycemia Protocol Dipyridamole/Aspirin (Aggrenox 25-200 Mg) 1 ea PO BID [facility] Enoxaparin Sodium (Lovenox) 40 mg SC DAILY [facility] PRN Reason: Protocol Glucagon (Glucagen Diagnostic Kit) 0 mg IM STAT PRN; Protocol PRN Reason: Hypoglycemia Protocol Insulin Detemir (Levemir) 18 units SC [facility] Last Admin: 06/29/17 21:16 Dose: Not Given Insulin Human Lispro (Humalog) 0 units SC ACHS [facility] PRN Reason: Protocol Last Admin: 06/30/17 09:00 Dose: 1 u Insulin Human Regular (Humulin R) 4 units SC AC [facility] Last Admin: 06/30/17 08:45 Dose: 4 u Lisinopril (Zestril) 40 mg PO DAILY [facility] Last Admin: 06/30/17 08:52 Dose: 40 mg Morphine Sulfate (Morphine) 2 mg IVP Q4 PRN PRN Reason: Pain, severe (8-10) Last Admin: 06/30/17 09:23 Dose: 2 mg Multivitamins/Minerals (Therapeutic-M Tab) 1 tab PO DAILY [facility] Last Admin: 06/30/17 09:00 Dose: 1 tab Ondansetron HCl (Zofran Inj) 4 mg IVP Q6 PRN PRN Reason: Nausea/Vomiting Oxycodone/Acetaminophen (Percocet 5/325 Mg Tab) 1 tab PO Q4 PRN PRN Reason: Pain, moderate (4-7) Stop: 07/02/17 12:15 Last Admin: 06/29/17 19:42 Dose: 1 tab Senna/Docusate Sodium (Senokot S 50 Mg-8.6 Mg) 2 tab PO HS [facility] Last Admin: 06/29/17 21:13 Dose: 2 tab Sertraline HCl (Zoloft) 50 mg PO DAILY [facility] Last Admin: 06/30/17 09:01 Dose: 50 mg Sitagliptin Phosphate (Januvia) 50 mg PO DAILY [facility] Last Admin: 06/30/17 09:00 Dose: 50 mg - Labs Labs: 06/30/17 05:15 06/30/17 05:15 PT 11.6 Seconds (9.8-13.1) 06/26/17 09:50 INR 1.0 (0.9-1.2) 06/26/17 09:50 APTT 29.0 Seconds (25.6-37.1) 06/26/17 09:50 - Constitutional Appears: Well, Non-toxic, No Acute Distress - Head Exam Head Exam: NORMOCEPHALIC Additional comments: s/p head trauma, no gross deformity noted ecchymosis to left upper lip - Eye Exam Eye Exam: EOMI, Normal appearance Pupil Exam: PERRL - ENT Exam ENT Exam: Mucous Membranes Moist, Normal Exam - Neck Exam Neck Exam: Full ROM, Normal Inspection. absent: Lymphadenopathy, Tenderness - Respiratory Exam Respiratory Exam: Clear to Ausculation Bilateral, NORMAL BREATHING PATTERN. absent: Rales, Wheezes - Cardiovascular Exam Cardiovascular Exam: REGULAR RHYTHM, +S1, +S2 - GI/Abdominal Exam GI & Abdominal Exam: Soft, Normal Bowel Sounds. absent: Distended, Tenderness - Rectal Exam Rectal Exam: Deferred - Extremities Exam Extremities Exam: Normal Capillary Refill, Normal Inspection. absent: Calf Tenderness, Joint Swelling, Pedal Edema Additional comments: left forearm in volar splint, elevated with IV pole pt able to actively wiggle fingers minimally; passive flexion of digits elicits moderate pain no strikethrough noted on dressing - Neurological Exam Neurological Exam: Alert, Awake, Oriented x3 - Psychiatric Exam Psychiatric exam: Normal Affect, Normal Mood - Skin Skin Exam: Intact, Normal Color, Warm Assessment and Plan - Assessment and Plan (Free Text) Assessment: 86 y/o female with PMhx of HTN, IDDM2, HLD, s/p CVA admitted for syncope with traumatic subarachnoid hemorrhage and left distal radius fracture, s/p ORIF of L wrist fracture with orthopedic surgery Plan: 1) Left Distal Ulna/Radius Fracture -CT of left upper extremity showed acute comminuted intraarticular fracture of distal radius with significant impaction of fracture fragments -Dr. Alcantara on consult -s/p ORIF of L comminuted wrist fracture yesterday -pt in volar splint to left upper extremity, to be left clean, dry and intact -continue pain control with Morphine and Percocet -pt received 3 doses Ancef as surgical prophylaxis -nursing communication placed to d/c elevation from IV pole, elevate left arm on pillows 2) Fall with traumatic subarachnoid hemorrhage -possibly secondary to seizure/arrythmia/ETOH -s/p 2 L NS in ED due to elevated total creatinine kinase (total SB=011) -Prior ECHO in 09/2016: normal LVEF, normal systolic function -Dr. Alcantara on consult for cardiology -Repeat ECHO showed normal LVEF, normal LV size and wall thickness, mild dilation of L atrium, mild tricuspid regurgitation -As per neurology: brain MRI w/o contrast, CTA head/neck and EEGs ordered -EEG showed no focal slowing, no seizure-like activity -per radiology, CTA head/neck cannot be performed due to patient's kidney function (cannot give contrast with GFR=43) -Repeat CT head showed no interval change, no acute intracranial abnormalities -continue PT/OT -c/w home meds -Dr. Hayes on consult for neurosurgery -pt cleared for D/C from neurosurgery standpoint -Repeat CT head showed no interval change, no acute intracranial abnormalities -continue PT/OT -Aggrenox resumed -dispo planning is to acute rehab 3) IDDM2 -stable at this time -c/w home meds, however Regular Insulin substituted for Humalog 2/2 to shortage -HbA1C in 02/2017: 7.7 -insulin coverage scale -monitor BS 4) Hypertension -c/w home meds -Amlodipine discontinued at this time due to overcontrolled BP -monitor 5) Chronic Kidney Disease -Stage 3B -improving as when compared to 01/2017 values -BUN/Cr: 17/1.0 -GFR: 53 -2L IV NS hydration given -monitor kidney function 6) Insomnia -C/w Zoloft 50mg PO daily 7) Diet -C/w Heart healthy diet 8) Code Status -Full Code 9) DVT Prophylaxis -SCDs -Started Lovenox 40mg SC daily
--- NOTE | 2017-06-30 13:31 | CP.PCM.PN ---
Subjective - Date & Time of Evaluation Date of Evaluation: 06/30/17 Time of Evaluation: 08:00 - Subjective Subjective: Patient complaining of pain in her wrist but says that pain medication helps. She says it hurts to move fingers. Denies numbness/tingling Objective - Vital Signs/Intake and Output Vital Signs (last 24 hours): Temp Pulse Resp BP Pulse Ox 99.4 F 91 H 20 120/68 90 L 06/30/17 08:13 06/30/17 08:59 06/30/17 08:13 06/30/17 08:59 06/30/17 08:13 Intake and Output: 06/30/17 06/30/17 06:59 18:59 Output Total 200 Balance -200 - Medications Medications: Current Medications Acetaminophen (Tylenol 325mg Tab) 650 mg PO Q6 PRN PRN Reason: Pain, moderate (4-7) Atorvastatin Calcium (Lipitor) 40 mg PO HS [facility] Last Admin: 06/29/17 21:13 Dose: 40 mg Calcium/Vitamin D (Oyster Shell Calcium/Vitamin D 500 Mg-200 Iu) 1 tab PO BIDWM [facility] Last Admin: 06/30/17 09:00 Dose: 1 tab Chlorthalidone (Hygroton) 12.5 mg PO DAILY [facility] Last Admin: 06/30/17 09:01 Dose: 12.5 mg Dextrose (Dextrose 50% Inj) 0 ml IV STAT PRN; Protocol PRN Reason: Hypoglycemia Protocol Dextrose (Glutose 15) 0 gm PO ONCE PRN; Protocol PRN Reason: Hypoglycemia Protocol Dipyridamole/Aspirin (Aggrenox 25-200 Mg) 1 ea PO BID [facility] Last Admin: 06/30/17 12:52 Dose: 1 ea Enoxaparin Sodium (Lovenox) 40 mg SC DAILY [facility] PRN Reason: Protocol Last Admin: 06/30/17 12:53 Dose: 40 mg Glucagon (Glucagen Diagnostic Kit) 0 mg IM STAT PRN; Protocol PRN Reason: Hypoglycemia Protocol Insulin Detemir (Levemir) 18 units SC HS [facility] Last Admin: 06/29/17 21:16 Dose: Not Given Insulin Human Lispro (Humalog) 0 units SC ACHS [facility] PRN Reason: Protocol Last Admin: 06/30/17 12:55 Dose: 2 u Insulin Human Regular (Humulin R) 4 units SC AC [facility] Last Admin: 06/30/17 12:05 Dose: 4 u Lisinopril (Zestril) 40 mg PO DAILY [facility] Last Admin: 06/30/17 08:52 Dose: 40 mg Morphine Sulfate (Morphine) 2 mg IVP Q4 PRN PRN Reason: Pain, severe (8-10) Last Admin: 06/30/17 09:23 Dose: 2 mg Multivitamins/Minerals (Therapeutic-M Tab) 1 tab PO DAILY [facility] Last Admin: 06/30/17 09:00 Dose: 1 tab Ondansetron HCl (Zofran Inj) 4 mg IVP Q6 PRN PRN Reason: Nausea/Vomiting Oxycodone/Acetaminophen (Percocet 5/325 Mg Tab) 1 tab PO Q4 PRN PRN Reason: Pain, moderate (4-7) Stop: 07/02/17 12:15 Last Admin: 06/29/17 19:42 Dose: 1 tab Senna/Docusate Sodium (Senokot S 50 Mg-8.6 Mg) 2 tab PO HS [facility] Last Admin: 06/29/17 21:13 Dose: 2 tab Sertraline HCl (Zoloft) 50 mg PO DAILY [facility] Last Admin: 06/30/17 09:01 Dose: 50 mg Sitagliptin Phosphate (Januvia) 50 mg PO DAILY [facility] Last Admin: 06/30/17 09:00 Dose: 50 mg - Labs Labs: 06/30/17 05:15 06/30/17 05:15 PT 11.6 Seconds (9.8-13.1) 06/26/17 09:50 INR 1.0 (0.9-1.2) 06/26/17 09:50 APTT 29.0 Seconds (25.6-37.1) 06/26/17 09:50 - Extremities Exam Additional comments: arm hanging. Sensation intact to med/ulnar/rad nerve distrib. Moves thumb with mild pain, but complains of pain with attempts at extension of fingers. some small flexion of fingers noted (patient had peripheral nerve block) fingers warm , cap refill < 2 seconds Assessment and Plan (1) Closed fracture of left distal radius Assessment & Plan: POD#1 s/p ORIF arm elevated, patient complaining of pain in fingers and shoulder from position , ok to adjust with wrist still maximally elevated over elbow ok to restart lovenox today PT/OT encourage OOB VTE proph orthopedically stable will monitor finger motion after block wears off d/w Dr. Alcantara, agrees with above Status: Acute (2) Displaced fracture of left ulna styloid process, initial encounter for closed fracture Status: Acute
--- NOTE | 2017-06-30 14:26 | CP.PCM.DIS ---
Provider - Provider Date of Admission: 06/26/17 13:51 Attending physician: Akash Trejo MD Time Spent in preparation of Discharge (in minutes): 30 Diagnosis - Discharge Diagnosis (1) Closed fracture of left distal radius Status: Acute Priority: Low Comment: s/p ORIF, in splint (2) Traumatic subarachnoid hemorrhage Status: Acute Priority: High Comment: -improved. -PT/OT in acute rehab Hospital Course - Lab Results Lab Results: Micro Results 06/26/17 10:07 Urine,Clean Catch Urine Culture - Final No Growth (<1,000 CFU/ML) Most Recent Lab Values WBC 8.2 K/uL (4.8-10.8) 06/30/17 05:15 RBC 3.55 Mil/uL (3.80-5.20) L 06/30/17 05:15 Hgb 11.6 g/dL (12.0-16.0) L 06/30/17 05:15 Hct 36.1 % (34.0-47.0) 06/30/17 05:15 MCV 101.9 fl (81.0-99.0) H 06/30/17 05:15 MCH 32.7 pg (27.0-31.0) H 06/30/17 05:15 MCHC 32.1 g/dL (33.0-37.0) L 06/30/17 05:15 RDW 13.1 % (11.5-14.5) 06/30/17 05:15 Plt Count 126 K/uL (130-400) L 06/30/17 05:15 MPV 10.5 fl (7.2-11.7) 06/28/17 04:15 Neut % (Auto) 64.0 % (50.0-75.0) 06/28/17 04:15 Lymph % (Auto) 23.8 % (20.0-40.0) 06/28/17 04:15 [place] % (Auto) 8.2 % (0.0-10.0) 06/28/17 04:15 Eos % (Auto) 3.5 % (0.0-4.0) 06/28/17 04:15 Baso % (Auto) 0.5 % (0.0-2.0) 06/28/17 04:15 Neut # 4.7 K/uL (1.8-7.0) 06/28/17 04:15 Lymph # 1.7 K/uL (1.0-4.3) 06/28/17 04:15 [place] # 0.6 K/uL (0.0-0.8) 06/28/17 04:15 Eos # 0.3 K/uL (0.0-0.7) 06/28/17 04:15 Baso # 0.0 K/uL (0.0-0.2) 06/28/17 04:15 PT 11.6 Seconds (9.8-13.1) 06/26/17 09:50 INR 1.0 (0.9-1.2) 06/26/17 09:50 APTT 29.0 Seconds (25.6-37.1) 06/26/17 09:50 pO2 19 mm/Hg (30-55) L 06/26/17 09:47 VBG pH 7.28 (7.32-7.43) L 06/26/17 09:47 VBG pCO2 51 mmHg (40-60) 06/26/17 09:47 VBG HCO3 20.3 mmol/L 06/26/17 09:47 VBG Total CO2 25.6 mmol/L (22-28) 06/26/17 09:47 VBG O2 Sat (Calc) 33.6 % (40-65) L 06/26/17 09:47 VBG Base Excess -3.3 mmol/L (0.0-2.0) L 06/26/17 09:47 VBG Potassium 4.3 mmol/L (3.6-5.2) 06/26/17 09:47 Sodium 142.0 mmol/L (132-148) 06/26/17 09:47 Chloride 107.0 mmol/L (98-107) 06/26/17 09:47 Glucose 170 mg/dL (65-105) H 06/26/17 09:47 Lactate 2.7 mmol/L (0.7-2.1) H 06/26/17 09:47 FiO2 21.0 % 06/26/17 09:47 Sodium 135 mmol/l (132-148) 06/30/17 05:15 Potassium 4.8 MMOL/L (3.6-5.0) 06/30/17 05:15 Chloride 103 mmol/L (98-107) 06/30/17 05:15 Carbon Dioxide 23 mmol/L (22-30) 06/30/17 05:15 Anion Gap 14 (10-20) 06/30/17 05:15 BUN 18 mg/dl (7-17) H 06/30/17 05:15 Creatinine 1.2 mg/dl (0.7-1.2) 06/30/17 05:15 Est GFR ( Amer) 52 06/30/17 05:15 Est GFR (Non-Af Amer) 43 06/30/17 05:15 POC Glucose (mg/dL) 217 mg/dL (65-110) H 06/30/17 10:53 Random Glucose 225 mg/dL (65-105) H 06/30/17 05:15 Calcium 8.4 mg/dL (8.4-10.2) 06/30/17 05:15 Total Bilirubin 0.6 mg/dl (0.2-1.3) 06/30/17 05:15 AST 39 U/L (14-36) H D 06/30/17 05:15 ALT 43 U/L (9-52) 06/30/17 05:15 Alkaline Phosphatase 59 U/L (38-126) 06/30/17 05:15 Total Creatine Kinase 527 U/L (30-135) H 06/26/17 09:50 CK-MB (Mass) 4.80 ng/mL (0.0-3.38) H 06/26/17 09:50 Troponin I < 0.0120 ng/mL (0.00-0.120) 06/26/17 09:50 Total Protein 6.5 G/DL (6.3-8.2) 06/30/17 05:15 Albumin 3.5 g/dL (3.5-5.0) D 06/30/17 05:15 Globulin 3.0 gm/dL (2.2-3.9) 06/30/17 05:15 Albumin/Globulin Ratio 1.2 (1.0-2.1) 06/30/17 05:15 25-OH Vitamin D Total 16.5 NG/ML (30.0-100.0) L 06/28/17 04:15 Venous Blood Potassium 4.3 mmol/L (3.6-5.2) 06/26/17 09:47 Urine Color Straw (YELLOW) 06/26/17 10:07 Urine Clarity Clear (Clear) 06/26/17 10:07 Urine pH 6.0 (5.0-8.0) 06/26/17 10:07 Ur Specific [place] 1.006 (1.003-1.030) 06/26/17 10:07 Urine Protein Negative mg/dL (NEGATIVE) 06/26/17 10:07 Urine Glucose (UA) Neg mg/dL (Normal) 06/26/17 10:07 Urine Ketones Negative mg/dL (NEGATIVE) 06/26/17 10:07 Urine Blood Small (NEGATIVE) 06/26/17 10:07 Urine Nitrate Negative (NEGATIVE) 06/26/17 10:07 Urine Bilirubin Negative (NEGATIVE) 06/26/17 10:07 Urine Urobilinogen 0.2-1.0 mg/dL (0.2-1.0) 06/26/17 10:07 Ur Leukocyte Esterase Small [place]/uL (Negative) 06/26/17 10:07 Urine RBC (Auto) 8 /hpf (0-3) H 06/26/17 10:07 Urine Microscopic WBC 12 /hpf (0-5) H 06/26/17 10:07 Ur Squamous Epith Cells 2 /hpf (0-5) 06/26/17 10:07 Urine Bacteria Rare (<OCC) 06/26/17 10:07 Alcohol, Quantitative 50 mg/dl (0-10) H 06/26/17 09:50 Blood Type A POSITIVE 06/28/17 21:54 Blood Type Confirm A POSITIVE 06/28/17 22:52 Antibody Screen Negative 06/28/17 21:54 Crossmatch See Detail 06/28/17 21:54 BBK History Checked No verified bt 06/28/17 21:54 - Hospital Course Hospital Course: 86 y/o female with PMHx of IDDM2, HTN, HLD, CKD, s/p CVA (left left sided weakness) admitted for fall/syncopal episode with traumatic subarachnoid hemorrhage noted in initial MRI and left comminuted distal radius fracture. Patient was evaluated by neuro and neurosurgery and repeat CT head was negative for any acute intracranial abnormalities. Cardiology consultation and clearance was obtained by Dr. Alcantara after EKG and ECHO were obtained. Patient was taken to surgery for ORIF of the left distal radius with ortho. Patient has been working with PT/OT throughout her stay and will continue to undergo rehabilitation in acute rehab. Discharge Exam - Head Exam Head Exam: NORMOCEPHALIC Additional comments: s/p head trauma, no gross deformity noted left upper lip ecchymosis - Eye Exam Eye Exam: EOMI, Normal appearance Pupil Exam: NORMAL ACCOMODATION, PERRL - ENT Exam ENT Exam: Normal Exam - Neck Exam Neck exam: Full Rom, Normal Inspection - Respiratory Exam Respiratory Exam: NORMAL BREATHING PATTERN, UNREMARKABLE. absent: Decreased Breath Sounds, Rhonchi, Wheezes - Cardiovascular Exam Cardiovascular Exam: REGULAR RHYTHM, +S1, +S2. absent: JVD - GI/Abdominal Exam GI & Abdominal Exam: Normal Bowel Sounds, Soft. absent: Tenderness - Rectal Exam Rectal Exam: Deferred - Extremities Exam Extremities exam: normal capillary refill, pedal pulses present Additional comments: left arm in volar splint, elevated on pillow pt able to actively wiggle fingers passive flexion of digits elicits moderate pain capillary refill time normal to all digits - Neurological Exam Neurological exam: Alert, Oriented x3 - Psychiatric Exam Psychiatric exam: Normal Affect, Normal Mood - Skin Skin Exam: Dry, Intact, Warm Discharge Plan - Discharge Medications Prescriptions: Morphine [Morphine Sulfate] 15 mg PO BID 3 Days #6 tab - Follow Up Plan Condition: STABLE Disposition: REHAB FACILITY/REHAB UNIT Patient education suggested?: Yes
[2017-06-30 16:00] VITALS: BP 148/69; PULSE 84; TEMP 97.9; O2SAT 97
--- NOTE | 2017-06-30 16:02 | RAD ---
PROCEDURE: Left Wrist Radiographs. HISTORY: post op ORIF COMPARISON: 06/26/2017 FINDINGS: BONES: Status post ORIF comminuted intra-articular distal radial fracture. Plate along the ventral distal radius FX with multiple screws. Fracture fragments are in near anatomic alignment. Minimally displaced ulnar styloid process fracture again noted. JOINTS: Normal. No dislocation. SOFT TISSUES: Normal. OTHER FINDINGS: None. IMPRESSION: ORIF distal left radial fracture.
== END 2017-06-30 18:05 | DRG 41 ==
LOC: H.ER 08:38 → H.ERHOLD 13:51 → H.TEL 21:50 → H.MEDSURG1 06-29 23:00
PROVIDERS: ADMIT Family Medicine; ATTEND Family Medicine
PROC: 3E0234Z Introduction of Serum, Toxoid and Vaccine into Muscle, Percutaneous Approach (ICD-10-PCS; 2017-06-27)
PROC: 0LB60ZZ Excision of Left Lower Arm and Wrist Tendon, Open Approach (ICD-10-PCS; 2017-06-29)
PROC: 3E0T3BZ Introduction of Anesthetic Agent into Peripheral Nerves and Plexi, Percutaneous Approach (ICD-10-PCS; 2017-06-29)
PROC: 3E0T33Z Introduction of Anti-inflammatory into Peripheral Nerves and Plexi, Percutaneous Approach (ICD-10-PCS; 2017-06-29)
PROC: 0PSJ04Z Reposition Left Radius with Internal Fixation Device, Open Approach (ICD-10-PCS; principal; 2017-06-29 07:45)
PROC: 01N50ZZ Release Median Nerve, Open Approach (ICD-10-PCS; 2017-06-29 07:45)
DX: S06.6X9A Traumatic subarachnoid hemorrhage with loss of consciousness of unspecified duration, initial encounter (principal); S52.572A Other intraarticular fracture of lower end of left radius, initial encounter for closed fracture; S52.612A Displaced fracture of left ulna styloid process, initial encounter for closed fracture; I69.354 Hemiplegia and hemiparesis following cerebral infarction affecting left non-dominant side; G56.02 Carpal tunnel syndrome, left upper limb; M65.832 Other synovitis and tenosynovitis, left forearm; E11.22 Type 2 diabetes mellitus with diabetic chronic kidney disease; I12.9 Hypertensive chronic kidney disease with stage 1 through stage 4 chronic kidney disease, or unspecified chronic kidney disease; N18.3 Chronic kidney disease, stage 3 (moderate); E78.5 Hyperlipidemia, unspecified; W18.30XA Fall on same level, unspecified, initial encounter; M19.032 Primary osteoarthritis, left wrist; R32 Unspecified urinary incontinence; G47.00 Insomnia, unspecified; F32.9 Major depressive disorder, single episode, unspecified; H26.9 Unspecified cataract; Z23 Encounter for immunization; Z79.4 Long term (current) use of insulin; Y92.009 Unspecified place in unspecified non-institutional (private) residence as the place of occurrence of the external cause

== ENCOUNTER 2017-06-30 14:53 | Inpatient (IN) | payer MEDICARE, MEDICAID ==
[2017-06-30 18:32] VITALS: BMI 35.1
[2017-06-30] MEDS ORDERED: Oxycodone/Acetaminophen 5/325 mg Tab PO PRN (20:46)
[2017-06-30] MEDS: Docusate-Senna 50 mg-8.6 mg Tab PO SCH (22:55)
[2017-06-30] MEDS: Insulin Detemir 100 Units/ml Inj SC SCH (22:57)
[2017-06-30] MEDS ORDERED: Dextrose 50% SYRINGE Inj (50 ml) IV PRN (23:58)
[2017-06-30] MEDS ORDERED: Glucagon Recombinant 1 mg Inj IM PRN (23:58)
[2017-07-01] MEDS: Insulin Regular 100 units/ml SC SCH ×8 (01:23→22:09)
[2017-07-01] MEDS ORDERED: Insulin Lispro (humaLOG) 100 Units/ml Inj SC SCH (07:30)
--- NOTE | 2017-07-01 08:36 | CP.PCM.HP ---
History of Present Illness - History of Present Illness History of Present Illness: 86 y/o female with a PMHx remarkable for IDDM2, HTN, HLD, CKD, s/p CVA (left left sided weakness) presented to hospital on 06/26/2017 s/p fall/syncopal episode. Pt stated she consumed approximately 4-5 glasses of wine, after which she returned home at approx 1am and "blacked out", waking up on the floor at approximately 7am after falling down, though she does not remember it happening. Pt reported pain on the left side of her face and left wrist but no numbness/tingling. Upon arrival to the ED, pt was found to have bleeding in her brain as well as a wrist fracture. Patient was evaluated by neuro and neurosurgery and repeat CT head was negative for any acute intracranial abnormalities. Cardiology consultation and clearance was obtained by Dr. Alcantara after EKG and ECHO were obtained. Patient was taken to surgery for ORIF of the left distal radius with ortho on 06/29/2017. Today patient is seen in acute rehab as she is recovering from her recent fall, as well as her recent wrist surgery. Pt admits to mild to moderate pain in the left wrist. Pt has no other complaints of pain, and states the left side of her face and body feel fine. Pt admits to mild constipation but says that the medicine we are giving her helps with that. She denies any headaches, changes in vision, lightheadedness, dizziness, CP/SOB, palpitations, N/V/D, urinary symptoms, new onset numbness/ tingling. PMD: Dr. Gwen Garcia, [facility] PMHx: IDDM2, HTN, CKD 3B, Depression, Insomnia, Hx of CVA with left sided weakness, HLD, traumatic subarachnoid hemorrhage Meds: as per med rec, confirmed in eCW PSH: Hernia, Cataract (2012), left wrist ORIF 06/29/2017 Social Hx: denies tobacco abuse, denies drug abuse. Reports social ETOH, however daughter thinks she drinks more than she says. -has homemaker 5x per week, lives alone, good support from family -Full code -next of Kin: daughter Lauren ALL: NKDA Family Hx: denies LMP: >30 years ago Present on Admission - Present on Admission Any Indicators Present on Admission: No Review of Systems - Constitutional Constitutional: absent: Chills, Fever, Weakness - EENT Eyes: absent: Change in Vision Nose/Mouth/Throat: absent: Facial Pain, Neck Pain - Cardiovascular Cardiovascular: absent: Chest Pain, Dyspnea, Leg Edema, Lightheadedness, Palpitations - Respiratory Respiratory: Cough. absent: Wheezing - Gastrointestinal Gastrointestinal: Constipation. absent: Abdominal Pain, Diarrhea, Nausea, Vomiting - Genitourinary Genitourinary: absent: Difficulty Urinating, Flank Pain, Urinary Frequency - Menstruation Menstruation: Post Menopausal - Musculoskeletal Additional comments: left forearm pain at surgical site - Integumentary Integumentary: absent: Wounds - Neurological Neurological: absent: Numbness, Tingling Past Patient History - Past Medical History & Family History Past Medical History?: Yes - Past Social History Smoking Status: Never Smoked - CARDIAC Hx Cardiac Disorders: Yes Hx Hypercholesterolemia: Yes Hx Hypertension: Yes - PULMONARY Hx Respiratory Disorders: No - NEUROLOGICAL Hx Neurological Disorder: Yes HX Cerebrovascular Accident: Yes (with residual left weakness) - HEENT Hx HEENT Problems: Yes Hx Cataracts: Yes (had surgery) Other/Comment: wear eyeglasses for reading and watching television but lost it per patient as interpreted by freelance interpreter/translator - RENAL Hx Chronic Kidney Disease: Yes Hx Dialysis: No - ENDOCRINE/METABOLIC Hx Endocrine Disorders: Yes Hx Diabetes Mellitus Type 2: Yes - HEMATOLOGICAL/ONCOLOGICAL Hx Blood Disorders: No Hx AIDS: No Hx Human Immunodeficiency Virus (HIV): No - INTEGUMENTARY Hx Dermatological Problems: No - MUSCULOSKELETAL/RHEUMATOLOGICAL Hx Falls: Yes (x2) - GASTROINTESTINAL Hx Gastrointestinal Disorders: No - GENITOURINARY/GYNECOLOGICAL Hx Genitourinary Disorders: No - PSYCHIATRIC Hx Psychophysiologic Disorder: Yes Hx Depression: Yes Hx Substance Use: No Other/Comment: insomnia - SURGICAL HISTORY Hx Surgeries: Yes Hx Cataract Extraction: Yes Hx Herniorrhaphy: Yes (Abdominal hernia repair) Hx Hysterectomy: Yes - ANESTHESIA Hx Anesthesia: Yes Hx Anesthesia Reactions: No Hx Malignant Hyperthermia: No Meds Allergies/Adverse Reactions: Allergies Allergy/AdvReac Type Severity Reaction Status Date / Time No Known Allergies Allergy Verified 06/30/17 18:32 Physical Exam - Constitutional Appears: Well, Non-toxic, No Acute Distress - Head Exam Head Exam: NORMOCEPHALIC Additional comments: s/p head trauma, no gross deformity noted mild ecchymosis to left upper lip - Eye Exam Eye Exam: EOMI, Normal appearance Pupil Exam: PERRL - ENT Exam ENT Exam: Mucous Membranes Moist, Normal Exam - Neck Exam Neck exam: Positive for: Normal Inspection. Negative for: Lymphadenopathy, Tenderness - Respiratory Exam Respiratory Exam: Clear to Auscultation Bilateral, NORMAL BREATHING PATTERN. absent: Rales, Wheezes, Respiratory Distress - Cardiovascular Exam Cardiovascular Exam: REGULAR RHYTHM, +S1, +S2. absent: JVD - GI/Abdominal Exam GI & Abdominal Exam: Normal Bowel Sounds, Soft. absent: Tenderness - Rectal Exam Rectal Exam: Deferred - Extremities Exam Extremities exam: Positive for: normal capillary refill, pedal pulses present. Negative for: calf tenderness, joint swelling Additional comments: left forearm in volar splint, elevated on pillow pt able to wiggle fingers w/o difficulty mild tenderness elicited upon active and passive flexion of digits cap refill time normal to all digits - Neurological Exam Neurological exam: Alert, Oriented x3 - Psychiatric Exam Psychiatric exam: Normal Affect, Normal Mood - Skin Skin Exam: Dry, Intact, Warm Results - Vital Signs Recent Vital Signs: Last Vital Signs Temp 98.9 F 06/30/17 19:00 Pulse 90 06/30/17 19:30 Resp 20 06/30/17 19:30 BP 128/60 06/30/17 19:00 Pulse Ox 97 06/30/17 19:00 - Labs Labs: Laboratory Results - last 24 hr 06/30/17 07/01/17 21:09 07:31 POC Glucose (mg/dL) 229 H 211 H Assessment & Plan - Assessment and Plan (Free Text) Assessment: 86 y/o female with PMhx of HTN, IDDM2, HLD, s/p CVA admitted for syncope with traumatic subarachnoid hemorrhage and left distal ulna/radius fracture. Pt now 2 days s/p ORIF of left radius fracture and has been transferred to acute rehab for PT/OT Plan: 1) Left Distal Ulna/Radius Fracture -CT of left upper extremity showed acute comminuted intraarticular fracture of distal radius with significant impaction of fracture fragments -Dr. Alcantara on consult -2 days s/p ORIF of L comminuted wrist fracture -pt in volar splint to left upper extremity, to be left clean, dry and intact -continue pain control with Morphine IR tab and Morphine IVP -continue PT -post op left wrist x-rays reviewed, to discuss results with ortho 2) Fall with traumatic subarachnoid hemorrhage -possibly secondary to seizure/arrythmia/ETOH -s/p 2 L NS in ED due to elevated total creatinine kinase (total MZ=302) -Prior ECHO in 09/2016: normal LVEF, normal systolic function -seen and evaluated by cardiology Dr. Alcantara -Repeat ECHO showed normal LVEF, normal LV size and wall thickness, mild dilation of L atrium, mild tricuspid regurgitation -As per neurology Dr. Estrada, ordered brain MRI w/o contrast, CTA head/neck and EEGs ordered -EEG showed no focal slowing, no seizure-like activity -per radiology, CTA head/neck cannot be performed due to patient's kidney function (cannot give contrast with GFR=43) -Repeat CT head showed no interval change, no acute intracranial abnormalities -continue PT/OT -c/w home meds -Dr. Hayes consulted for neurosurgery, cleared pt for D/C from neurosurgery standpoint -Repeat CT head showed no interval change, no acute intracranial abnormalities -Aggrenox resumed per neuro -continue PT/OT in acute rehab 3) IDDM2 -stable at this time -c/w home meds, however Regular Insulin substituted for Humalog 2/2 to shortage -HbA1C in 02/2017: 7.7 -insulin coverage scale -monitor BS -new HgA1C ordered 4) Hypertension -c/w home meds -Amlodipine discontinued due to overcontrol of BP -monitor 5) Chronic Kidney Disease -Stage 3B -improving as when compared to 01/2017 values -BUN/Cr: 18/1.2 -Est GFR: 43 -2L IV NS hydration given on initial admission in ED -monitor kidney function 6) Constipation -last BM 2 days ago -continue Sennokot 7) Hyperlipidemia -c/w Atorvastatin -last lipid panel on previous admission WNL 7) Insomnia -C/w Zoloft 50mg PO daily 8) Diet -Heart healthy diet resumed 9) Code Status -Full Code 10) DVT Prophylaxis -SCDs -Heparin SC x 2 doses given pre-op -Aggrenox resumed per neuro -Lovenox resumed, ok per orthopedic surgery
[2017-07-01] MEDS ORDERED: Enoxaparin 40 mg Syringe SC SCH (09:00)
[2017-07-01] MEDS ORDERED: Multivitamin With Minerals Tab PO SCH (09:00)
[2017-07-01] MEDS: Aspirin-Dipyridamole 200-25 mg ER Cap PO SCH ×2 (09:17→17:42)
[2017-07-01] MEDS: Calcium-Vit D 500 mg-200 Units Tab UD PO SCH ×2 (09:17→17:42)
[2017-07-01] MEDS: Multivitamin With Minerals Tab PO SCH (09:19)
[2017-07-01] MEDS: Enoxaparin 30 mg Syringe SC SCH (09:19)
[2017-07-01] MEDS: Morphine 15 mg Immediate Release Tab PO SCH ×2 (09:28→17:48)
--- NOTE | 2017-07-01 19:27 | CP.PCM.CON ---
History of Present Illness - History of Present Illness History of Present Illness: 86 year old female admitted for acute rehab with diagnosis of traumatic, subarachnoid hemorrhage and wrist fracture on the left hand Review of Systems - Constitutional Constitutional: Weakness - Musculoskeletal Musculoskeletal: Abnormal Gait, Muscle Weakness - Neurological Neurological: Dizziness, Lack of Coordination, Weakness Past Patient History - Past Medical History & Family History Past Medical History?: Yes - Past Social History Smoking Status: Never Smoked - CARDIAC Hx Hypertension: Yes - PULMONARY Hx Respiratory Disorders: No - NEUROLOGICAL HX Cerebrovascular Accident: Yes - HEENT Hx HEENT Problems: Yes Hx Cataracts: Yes (had surgery) Other/Comment: wear eyeglasses for reading and watching television but lost it per patient as interpreted by supervisor pig machine - RENAL Hx Chronic Kidney Disease: Yes Hx Dialysis: No - ENDOCRINE/METABOLIC Hx Diabetes Mellitus Type 2: Yes - HEMATOLOGICAL/ONCOLOGICAL Hx Blood Disorders: No Hx AIDS: No Hx Human Immunodeficiency Virus (HIV): No - INTEGUMENTARY Hx Dermatological Problems: No - MUSCULOSKELETAL/RHEUMATOLOGICAL Hx Falls: Yes (x2) - GASTROINTESTINAL Hx Gastrointestinal Disorders: No - GENITOURINARY/GYNECOLOGICAL Hx Genitourinary Disorders: No - PSYCHIATRIC Hx Psychophysiologic Disorder: Yes Hx Depression: Yes Hx Substance Use: No Other/Comment: insomnia - SURGICAL HISTORY Hx Surgeries: Yes Hx Cataract Extraction: Yes Hx Herniorrhaphy: Yes (Abdominal hernia repair) Hx Hysterectomy: Yes - ANESTHESIA Hx Anesthesia: Yes Hx Anesthesia Reactions: No Hx Malignant Hyperthermia: No Meds Allergies/Adverse Reactions: Allergies Allergy/AdvReac Type Severity Reaction Status Date / Time No Known Allergies Allergy Verified 06/30/17 18:32 - Medications Medications: Current Medications Acetaminophen (Tylenol 325mg Tab) 650 mg PO Q6 PRN PRN Reason: Pain, moderate (4-7) Last Admin: 07/01/17 14:42 Dose: 650 mg Atorvastatin Calcium (Lipitor) 40 mg PO HS ELINA Last Admin: 06/30/17 22:55 Dose: 40 mg Calcium/Vitamin D (Oyster Shell Calcium/Vitamin D 500 Mg-200 Iu) 1 tab PO BIDWM ELINA Last Admin: 07/01/17 17:42 Dose: 1 tab Chlorthalidone (Hygroton) 12.5 mg PO DAILY [facility] Last Admin: 07/01/17 09:21 Dose: 12.5 mg Dextrose (Dextrose 50% Inj) 0 ml IV STAT PRN; Protocol PRN Reason: Hypoglycemia Protocol Dextrose (Glutose 15) 0 gm PO ONCE PRN; Protocol PRN Reason: Hypoglycemia Protocol Dipyridamole/Aspirin (Aggrenox 25-200 Mg) 1 ea PO BID [facility] Last Admin: 07/01/17 17:42 Dose: 1 ea Enoxaparin Sodium (Lovenox) 30 mg SC DAILY [facility] PRN Reason: Protocol Last Admin: 07/01/17 09:19 Dose: 30 mg Glucagon (Glucagen Diagnostic Kit) 0 mg IM STAT PRN; Protocol PRN Reason: Hypoglycemia Protocol Insulin Detemir (Levemir) 18 units SC HS [facility] Last Admin: 06/30/17 22:57 Dose: 18 units Insulin Human Regular (Humulin R) 4 units SC AC [facility] Last Admin: 07/01/17 17:50 Dose: 4 units Insulin Human Regular (Humulin R) 0 units SC ACHS [facility] PRN Reason: Protocol Last Admin: 07/01/17 17:51 Dose: 3 units Lisinopril (Zestril) 40 mg PO DAILY [facility] Last Admin: 07/01/17 09:18 Dose: 40 mg Morphine Sulfate (Morphine) 2 mg IVP Q4 PRN PRN Reason: Pain, severe (8-10) Morphine Sulfate (Morphine Immediate Release Tab) 15 mg PO BID [facility] Last Admin: 07/01/17 17:48 Dose: 15 mg Multivitamins/Minerals (Therapeutic-M Tab) 1 tab PO DAILY [facility] Last Admin: 07/01/17 09:19 Dose: 1 tab Ondansetron HCl (Zofran Inj) 4 mg IVP Q6 PRN PRN Reason: Nausea/Vomiting Oxycodone/Acetaminophen (Percocet 5/325 Mg Tab) 1 tab PO Q4 PRN PRN Reason: Pain, moderate (4-7) Stop: 07/03/17 20:47 Senna/Docusate Sodium (Senokot S 50 Mg-8.6 Mg) 2 tab PO [facility] Last Admin: 06/30/17 22:55 Dose: 2 tab Sertraline HCl (Zoloft) 50 mg PO DAILY [facility] Last Admin: 07/01/17 09:17 Dose: 50 mg Sitagliptin Phosphate (Januvia) 50 mg PO DAILY [facility] Last Admin: 07/01/17 09:19 Dose: 50 mg Physical Exam - Head Exam Head Exam: ATRAUMATIC, NORMAL INSPECTION, NORMOCEPHALIC - Eye Exam Eye Exam: EOMI, Normal appearance Pupil Exam: NORMAL ACCOMODATION, PERRL - ENT Exam ENT Exam: Mucous Membranes Moist, Normal Exam - Respiratory Exam Respiratory Exam: Clear to Auscultation Bilateral, NORMAL BREATHING PATTERN - Cardiovascular Exam Cardiovascular Exam: REGULAR RHYTHM - GI/Abdominal Exam GI & Abdominal Exam: Normal Bowel Sounds - Rectal Exam Rectal Exam: NORMAL INSPECTION - Exam External exam: NORMAL EXTERNAL EXAM - Extremities Exam Extremities exam: Positive for: normal inspection - Back Exam Back exam: NORMAL INSPECTION - Neurological Exam Neurological exam: Alert, CN II-XII Intact - Psychiatric Exam Psychiatric exam: Normal Affect, Normal Mood - Skin Skin Exam: Dry, Normal Color Results - Vital Signs Recent Vital Signs: Last Vital Signs Temp 99.1 F 07/01/17 08:46 Pulse 75 07/01/17 09:18 Resp 19 07/01/17 08:46 BP 116/80 07/01/17 09:18 Pulse Ox 94 L 07/01/17 08:46 - Labs Labs: Laboratory Results - last 24 hr 06/30/17 07/01/17 07/01/17 21:09 07:31 11:50 POC Glucose (mg/dL) 229 H 211 H 291 H Hemoglobin A1c 07/01/17 07/01/17 13:11 16:37 POC Glucose (mg/dL) 295 H Hemoglobin A1c 7.7 H Assessment & Plan (1) Closed fracture of left distal radius Status: Acute Priority: Low (2) Displaced fracture of left ulna styloid process, initial encounter for closed fracture Status: Acute (3) Episode of generalized weakness Status: Acute (4) Hyperglycemia Status: Acute (5) Hypertension Status: Acute (6) Traumatic subarachnoid hemorrhage Assessment and Plan: plan for physical, occupational rec and speech therapy eval and treatment for range of motion, strengthening, transfer and gait training. Goals for MOd Independent Non wt bearing on left hand to write overall plan of care Status: Acute Priority: High - Date & Time Date: 07/01/17 Time: 13:00
--- NOTE | 2017-07-01 19:32 | PCM.OPOC ---
Physiatry Overall Plan of Care - Overall Plan of Care Estimated Length of Stay in Weeks: 3 Rehab Impairment: Mobility, Gait, Cognition, Speech, Balance, Coordination Etiologic Diagnosis: Traumatic Brain Injury, Other Rehab/Medical Prognosis: Fair - Anticipated Interventions Physical Therapy:: Yes Occupational Therapy:: Yes Speech Therapy:: Yes Recreational Therapy:: Yes - Therapy Goals Bed Mobility: Independent Ambulation: Supervision Functional Positional Changes:: Independent - Functional Outcomes Functional Outcomes: fair - Discharge Plan Identification of Barriers to Discharge: Home Situation Discharge Destination: Home
[2017-07-01] MEDS: Docusate-Senna 50 mg-8.6 mg Tab PO SCH (22:06)
[2017-07-01] MEDS: Insulin Detemir 100 Units/ml Inj SC SCH (22:07)
[2017-07-02 06:36] LABS: HEMATOCRIT 29.7 % (34.0-47.0); MEAN CORPUSCULAR HEMOGLOBIN 33.5 pg (27.0-31.0); MEAN CORPUSCULAR HGB CONC 33.2 g/dL (33.0-37.0); RED CELL DISTRIBUTION WIDTH 12.9 % (11.5-14.5); WHITE BLOOD COUNT 7.8 K/uL (4.8-10.8)
[2017-07-02 06:54] LABS: PARTIAL THROMBOPLASTIN TIME 24.7 Seconds (25.6-37.1)
[2017-07-02 06:57] LABS: BILIRUBIN,TOTAL 0.5 mg/dl (0.2-1.3); CALCIUM 8.4 mg/dL (8.4-10.2); POTASSIUM 4.9 MMOL/L (3.6-5.0)
[2017-07-02] MEDS: Insulin Regular 100 units/ml SC SCH ×7 (07:20→21:51)
[2017-07-02] MEDS: Calcium-Vit D 500 mg-200 Units Tab UD PO SCH ×2 (08:00→16:27)
[2017-07-02] MEDS: Aspirin-Dipyridamole 200-25 mg ER Cap PO SCH ×2 (09:39→16:28)
[2017-07-02] MEDS: Enoxaparin 30 mg Syringe SC SCH (09:39)
[2017-07-02] MEDS: Multivitamin With Minerals Tab PO SCH (09:39)
[2017-07-02] MEDS: Morphine 15 mg Immediate Release Tab PO SCH ×2 (09:45→17:01)
--- NOTE | 2017-07-02 11:47 | CP.PCM.PN ---
Subjective - Date & Time of Evaluation Date of Evaluation: 07/02/17 Time of Evaluation: 11:45 - Subjective Subjective: S- s/p ORIF displaced distal radius fx- no discomfort Objective - Vital Signs/Intake and Output Vital Signs (last 24 hours): Temp Pulse Resp BP Pulse Ox 98.0 F 81 20 105/56 L 97 07/02/17 07:35 07/02/17 09:41 07/02/17 07:35 07/02/17 09:41 07/02/17 07:35 - Medications Medications: Current Medications Acetaminophen (Tylenol 325mg Tab) 650 mg PO Q6 PRN PRN Reason: Pain, moderate (4-7) Last Admin: 07/01/17 14:42 Dose: 650 mg Atorvastatin Calcium (Lipitor) 40 mg PO HS [facility] Last Admin: 07/01/17 22:06 Dose: 40 mg Calcium/Vitamin D (Oyster Shell Calcium/Vitamin D 500 Mg-200 Iu) 1 tab PO BIDWM [facility] Last Admin: 07/02/17 08:00 Dose: 1 tab Chlorthalidone (Hygroton) 12.5 mg PO DAILY [facility] Last Admin: 07/02/17 09:42 Dose: 12.5 mg Dextrose (Dextrose 50% Inj) 0 ml IV STAT PRN; Protocol PRN Reason: Hypoglycemia Protocol Dextrose (Glutose 15) 0 gm PO ONCE PRN; Protocol PRN Reason: Hypoglycemia Protocol Dipyridamole/Aspirin (Aggrenox 25-200 Mg) 1 ea PO BID [facility] Last Admin: 07/02/17 09:39 Dose: 1 ea Enoxaparin Sodium (Lovenox) 30 mg SC DAILY [facility] PRN Reason: Protocol Last Admin: 07/02/17 09:39 Dose: 30 mg Glucagon (Glucagen Diagnostic Kit) 0 mg IM STAT PRN; Protocol PRN Reason: Hypoglycemia Protocol Insulin Detemir (Levemir) 18 units SC HS [facility] Last Admin: 07/01/17 22:07 Dose: 18 units Insulin Human Regular (Humulin R) 4 units SC AC [facility] Last Admin: 07/02/17 07:30 Dose: 4 units Insulin Human Regular (Humulin R) 0 units SC ACHS [facility] PRN Reason: Protocol Last Admin: 07/02/17 07:20 Dose: Not Given Lisinopril (Zestril) 40 mg PO DAILY [facility] Last Admin: 07/02/17 09:41 Dose: Not Given Morphine Sulfate (Morphine Immediate Release Tab) 15 mg PO BID [facility] Last Admin: 07/02/17 09:45 Dose: 15 mg Multivitamins/Minerals (Therapeutic-M Tab) 1 tab PO DAILY [facility] Last Admin: 07/02/17 09:39 Dose: 1 tab Ondansetron HCl (Zofran Inj) 4 mg IVP Q6 PRN PRN Reason: Nausea/Vomiting Oxycodone/Acetaminophen (Percocet 5/325 Mg Tab) 1 tab PO Q4 PRN PRN Reason: Pain, moderate (4-7) Stop: 07/03/17 20:47 Senna/Docusate Sodium (Senokot S 50 Mg-8.6 Mg) 2 tab PO HS [facility] Last Admin: 07/01/17 22:06 Dose: 2 tab Sertraline HCl (Zoloft) 50 mg PO DAILY [facility] Last Admin: 07/02/17 09:39 Dose: 50 mg Sitagliptin Phosphate (Januvia) 50 mg PO DAILY [facility] Last Admin: 07/02/17 09:39 Dose: 50 mg - Labs Labs: 07/02/17 06:26 07/02/17 06:26 PT 12.0 Seconds (9.8-13.1) 07/02/17 06:26 INR 1.1 (0.9-1.2) 07/02/17 06:26 APTT 24.7 Seconds (25.6-37.1) L 07/02/17 06:26 - Additional Findings Additional findings: Objective: systemic- wnl /no gross/neuro deficits Musculoskekltasl stance/gait defrred splint intacvt N/V [id number] no gross neuro deficits Assessment and Plan - Assessment and Plan (Free Text) Assessment: A- s/p ORIF displaced distal raidus fx excellent position of construct P- orthopedically stable
[2017-07-02] MEDS ORDERED: Oxycodone/Acetaminophen 5/325 mg Tab PO PRN (16:13)
[2017-07-02] MEDS: Cholecalciferol 1,000 INTLU TAB PO SCH (16:27)
[2017-07-02] MEDS: Docusate-Senna 50 mg-8.6 mg Tab PO SCH (21:49)
[2017-07-02] MEDS: Insulin Detemir 100 Units/ml Inj SC SCH (21:50)
[2017-07-03] MEDS: Insulin Regular 100 units/ml SC SCH ×7 (07:16→22:06)
[2017-07-03 08:18] LABS: HEMATOCRIT 28.8 % (34.0-47.0); MEAN CELL VOLUME 99.1 fl (81.0-99.0); MEAN CORPUSCULAR HEMOGLOBIN 33.7 pg (27.0-31.0); RED CELL DISTRIBUTION WIDTH 12.8 % (11.5-14.5); WHITE BLOOD COUNT 6.9 K/uL (4.8-10.8)
[2017-07-03 08:29] LABS: IRON 25 ug/dL (37-170)
[2017-07-03] MEDS: Calcium-Vit D 500 mg-200 Units Tab UD PO SCH ×2 (08:46→16:33)
[2017-07-03] MEDS: Multivitamin With Minerals Tab PO SCH (08:46)
[2017-07-03] MEDS: Aspirin-Dipyridamole 200-25 mg ER Cap PO SCH ×2 (08:46→16:33)
[2017-07-03] MEDS: Cholecalciferol 1,000 INTLU TAB PO SCH (08:47)
[2017-07-03] MEDS: Enoxaparin 30 mg Syringe SC SCH (08:47)
[2017-07-03] MEDS: Morphine 15 mg Immediate Release Tab PO SCH ×2 (08:48→16:33)
--- NOTE | 2017-07-03 09:57 | CP.PCM.PN ---
Subjective - Date & Time of Evaluation Date of Evaluation: 07/02/17 Time of Evaluation: 09:00 - Subjective Subjective: no acute complaints of arm pain or other weakness Objective - Vital Signs/Intake and Output Vital Signs (last 24 hours): Temp Pulse Resp BP Pulse Ox 98.8 F 74 20 103/50 L 97 07/03/17 08:18 07/03/17 08:18 07/03/17 08:18 07/03/17 08:18 07/03/17 08:18 - Medications Medications: Current Medications Acetaminophen (Tylenol 325mg Tab) 650 mg PO Q6 PRN PRN Reason: Pain, Mild (1-3) Atorvastatin Calcium (Lipitor) 40 mg PO HS [facility] Last Admin: 07/02/17 21:48 Dose: 40 mg Calcium/Vitamin D (Oyster Shell Calcium/Vitamin D 500 Mg-200 Iu) 1 tab PO BIDWM [facility] Last Admin: 07/03/17 08:46 Dose: 1 tab Chlorthalidone (Hygroton) 12.5 mg PO DAILY [facility] Last Admin: 07/03/17 08:48 Dose: 12.5 mg Cholecalciferol (Vitamin D) 2,000 iu PO DAILY [facility] Last Admin: 07/03/17 08:47 Dose: 2,000 iu Dextrose (Dextrose 50% Inj) 0 ml IV STAT PRN; Protocol PRN Reason: Hypoglycemia Protocol Dextrose (Glutose 15) 0 gm PO ONCE PRN; Protocol PRN Reason: Hypoglycemia Protocol Dipyridamole/Aspirin (Aggrenox 25-200 Mg) 1 ea PO BID [facility] Last Admin: 07/03/17 08:46 Dose: 1 ea Enoxaparin Sodium (Lovenox) 30 mg SC DAILY [facility] PRN Reason: Protocol Last Admin: 07/03/17 08:47 Dose: 30 mg Glucagon (Glucagen Diagnostic Kit) 0 mg IM STAT PRN; Protocol PRN Reason: Hypoglycemia Protocol Insulin Detemir (Levemir) 18 units SC HS [facility] Last Admin: 07/02/17 21:50 Dose: 18 units Insulin Human Regular (Humulin R) 4 units SC AC [facility] Last Admin: 07/02/17 17:07 Dose: 4 units Insulin Human Regular (Humulin R) 0 units SC ACHS [facility] PRN Reason: Protocol Last Admin: 07/03/17 07:16 Dose: Not Given Lisinopril (Zestril) 40 mg PO DAILY [facility] Last Admin: 07/02/17 09:41 Dose: Not Given Morphine Sulfate (Morphine Immediate Release Tab) 15 mg PO BID [facility] Last Admin: 07/03/17 08:48 Dose: 15 mg Multivitamins/Minerals (Therapeutic-M Tab) 1 tab PO DAILY [facility] Last Admin: 07/03/17 08:46 Dose: 1 tab Ondansetron HCl (Zofran Inj) 4 mg IVP Q6 PRN PRN Reason: Nausea/Vomiting Oxycodone/Acetaminophen (Percocet 5/325 Mg Tab) 1 tab PO Q4 PRN PRN Reason: Pain, moderate (4-7) Stop: 07/03/17 20:47 Oxycodone/Acetaminophen (Percocet 5/325 Mg Tab) 2 tab PO Q6 PRN PRN Reason: Pain, severe (8-10) Stop: 07/05/17 16:14 Senna/Docusate Sodium (Senokot S 50 Mg-8.6 Mg) 2 tab PO HS [facility] Last Admin: 07/02/17 21:49 Dose: 2 tab Sertraline HCl (Zoloft) 50 mg PO DAILY [facility] Last Admin: 07/03/17 08:46 Dose: 50 mg Sitagliptin Phosphate (Januvia) 50 mg PO DAILY [facility] Last Admin: 07/03/17 08:46 Dose: 50 mg - Labs Labs: 07/03/17 08:03 07/03/17 08:03 PT 12.0 Seconds (9.8-13.1) 07/02/17 06:26 INR 1.1 (0.9-1.2) 07/02/17 06:26 APTT 24.7 Seconds (25.6-37.1) L 07/02/17 06:26 - Head Exam Head Exam: ATRAUMATIC, NORMAL INSPECTION, NORMOCEPHALIC - Eye Exam Eye Exam: EOMI, Normal appearance Pupil Exam: NORMAL ACCOMODATION, PERRL - ENT Exam ENT Exam: Mucous Membranes Moist, Normal Exam - Neck Exam Neck Exam: Normal Inspection - Respiratory Exam Respiratory Exam: Clear to Ausculation Bilateral, NORMAL BREATHING PATTERN - Cardiovascular Exam Cardiovascular Exam: REGULAR RHYTHM - GI/Abdominal Exam GI & Abdominal Exam: Soft, Normal Bowel Sounds - Rectal Exam Rectal Exam: NORMAL INSPECTION - Exam External exam: NORMAL EXTERNAL EXAM - Extremities Exam Extremities Exam: Normal Capillary Refill, Normal Inspection - Back Exam Back Exam: NORMAL INSPECTION - Neurological Exam Neuro motor strength exam: Left Upper Extremity: 2/1, Right Upper Extremity: 4, Left Lower Extremity: 3, Right Lower Extremity: 4 - Psychiatric Exam Psychiatric exam: Normal Affect, Normal Mood - Skin Skin Exam: Normal Color Assessment and Plan (1) Closed fracture of left distal radius Status: Acute (2) Displaced fracture of left ulna styloid process, initial encounter for closed fracture Status: Acute (3) Episode of generalized weakness Status: Acute (4) Hyperglycemia Status: Acute (5) Hypertension Status: Acute (6) Traumatic subarachnoid hemorrhage Assessment & Plan: plan for physical, occupational, rec and speech therapy program plan for Rom, Strenghtening, transfers and gait training. precautions as per Ortho Status: Acute
[2017-07-03 21:19] LABS: FOLATE 16.9 ng/mL
[2017-07-03] MEDS: Docusate-Senna 50 mg-8.6 mg Tab PO SCH (21:57)
[2017-07-03] MEDS: Insulin Detemir 100 Units/ml Inj SC SCH (22:07)
[2017-07-04 05:34] LABS: MEAN CORPUSCULAR HEMOGLOBIN 33.1 pg (27.0-31.0); MEAN CORPUSCULAR HGB CONC 33.1 g/dL (33.0-37.0); RED CELL DISTRIBUTION WIDTH 12.7 % (11.5-14.5); WHITE BLOOD COUNT 6.3 K/uL (4.8-10.8)
[2017-07-04 05:38] LABS: CALCIUM 9.2 mg/dL (8.4-10.2); POTASSIUM 5.1 MMOL/L (3.6-5.0)
[2017-07-04] MEDS: Insulin Regular 100 units/ml SC SCH ×7 (06:45→21:19)
[2017-07-04] MEDS: Morphine 15 mg Immediate Release Tab PO SCH ×2 (08:30→17:50)
[2017-07-04] MEDS: Aspirin-Dipyridamole 200-25 mg ER Cap PO SCH ×2 (08:33→17:50)
[2017-07-04] MEDS: Multivitamin With Minerals Tab PO SCH (08:34)
[2017-07-04] MEDS: Calcium-Vit D 500 mg-200 Units Tab UD PO SCH ×2 (08:35→17:50)
[2017-07-04] MEDS: Cholecalciferol 1,000 INTLU TAB PO SCH (08:35)
[2017-07-04] MEDS: Enoxaparin 30 mg Syringe SC SCH (08:35)
--- NOTE | 2017-07-04 09:22 | CP.PCM.PN ---
Subjective - Date & Time of Evaluation Date of Evaluation: 07/04/17 Time of Evaluation: 09:19 - Subjective Subjective: Patient states wrist is a little better. Denies numbness/tingling. Objective - Vital Signs/Intake and Output Vital Signs (last 24 hours): Temp Pulse Resp BP Pulse Ox 98.9 F 70 20 108/59 L 97 07/03/17 20:33 07/03/17 20:33 07/03/17 20:33 07/04/17 08:33 07/03/17 20:33 - Medications Medications: Current Medications Acetaminophen (Tylenol 325mg Tab) 650 mg PO Q6 PRN PRN Reason: Pain, moderate (4-7) Atorvastatin Calcium (Lipitor) 40 mg PO HS [facility] Last Admin: 07/03/17 21:57 Dose: 40 mg Calcium/Vitamin D (Oyster Shell Calcium/Vitamin D 500 Mg-200 Iu) 1 tab PO BIDWM [facility] Last Admin: 07/04/17 08:35 Dose: 1 tab Chlorthalidone (Hygroton) 12.5 mg PO DAILY [facility] Last Admin: 07/04/17 08:34 Dose: 12.5 mg Cholecalciferol (Vitamin D) 2,000 iu PO DAILY [facility] Last Admin: 07/04/17 08:35 Dose: 2,000 iu Dextrose (Dextrose 50% Inj) 0 ml IV STAT PRN; Protocol PRN Reason: Hypoglycemia Protocol Dextrose (Glutose 15) 0 gm PO ONCE PRN; Protocol PRN Reason: Hypoglycemia Protocol Dipyridamole/Aspirin (Aggrenox 25-200 Mg) 1 ea PO BID [facility] Last Admin: 07/04/17 08:33 Dose: 1 ea Enoxaparin Sodium (Lovenox) 30 mg SC DAILY [facility] PRN Reason: Protocol Last Admin: 07/04/17 08:35 Dose: 30 mg Glucagon (Glucagen Diagnostic Kit) 0 mg IM STAT PRN; Protocol PRN Reason: Hypoglycemia Protocol Insulin Detemir (Levemir) 18 units SC HS [facility] Last Admin: 07/03/17 22:07 Dose: 18 units Insulin Human Regular (Humulin R) 4 units SC AC [facility] Last Admin: 07/04/17 08:00 Dose: 4 units Insulin Human Regular (Humulin R) 0 units SC ACHS [facility] PRN Reason: Protocol Last Admin: 07/04/17 06:45 Dose: Not Given Lisinopril (Zestril) 40 mg PO DAILY [facility] Last Admin: 07/04/17 08:33 Dose: 40 mg Morphine Sulfate (Morphine Immediate Release Tab) 15 mg PO BID [facility] Last Admin: 07/04/17 08:30 Dose: 15 mg Multivitamins/Minerals (Therapeutic-M Tab) 1 tab PO DAILY [facility] Last Admin: 07/04/17 08:34 Dose: 1 tab Ondansetron HCl (Zofran Inj) 4 mg IVP Q6 PRN PRN Reason: Nausea/Vomiting Senna/Docusate Sodium (Senokot S 50 Mg-8.6 Mg) 2 tab PO HS [facility] Last Admin: 07/03/17 21:57 Dose: 2 tab Sertraline HCl (Zoloft) 50 mg PO DAILY [facility] Last Admin: 07/04/17 08:34 Dose: 50 mg Sitagliptin Phosphate (Januvia) 50 mg PO DAILY [facility] Last Admin: 07/04/17 08:33 Dose: 50 mg Tramadol HCl (Ultram) 50 mg PO Q6 PRN PRN Reason: Pain, severe (8-10) - Labs Labs: 07/04/17 05:05 07/04/17 05:05 PT 12.0 Seconds (9.8-13.1) 07/02/17 06:26 INR 1.1 (0.9-1.2) 07/02/17 06:26 APTT 24.7 Seconds (25.6-37.1) L 07/02/17 06:26 - Extremities Exam Additional comments: left hand: not elevated, fingers still swollen. Sensation intact. fingers warm, improving ROM fingers with little pain. Cap refill < 2 sec encouraged ROM ane elevation Assessment and Plan (1) Closed fracture of left distal radius Assessment & Plan: POD# 5 s/p left wrist ORIF -orthopedically stable -post operative imaging reviewed, shows good alignment of fracture -elevation/ice -f/u Dr. Alcantara approx 1 week after d/c call for appt -d/w jesse Joy with above Status: Acute (2) Displaced fracture of left ulna styloid process, initial encounter for closed fracture Status: Acute
[2017-07-04] MEDS ORDERED: Sod Polystyrene Sulf 15 gm/60 ml Susp PO ONE (10:34)
--- NOTE | 2017-07-04 11:01 | CP.PCM.PN ---
Subjective - Date & Time of Evaluation Date of Evaluation: 07/04/17 Time of Evaluation: 09:10 - Subjective Subjective: 86 y/o female seen at bedside today in acute rehab, resting in bed at time of visit in [facility]. Pt says she is no longer having any pain in the left wrist where she had her surgery. Pt denies any acute events overnight and says she feels fine at this time. Pt denies F/C/N/V/CP/SOB. Pt has kept her splint intact to the left wrist. Objective - Vital Signs/Intake and Output Vital Signs (last 24 hours): Temp Pulse Resp BP Pulse Ox 98.1 F 80 18 108/59 L 94 L 07/04/17 10:00 07/04/17 10:00 07/04/17 10:00 07/04/17 10:00 07/04/17 10:00 - Medications Medications: Current Medications Acetaminophen (Tylenol 325mg Tab) 650 mg PO Q6 PRN PRN Reason: Pain, moderate (4-7) Atorvastatin Calcium (Lipitor) 40 mg PO HS [facility] Last Admin: 07/03/17 21:57 Dose: 40 mg Calcium/Vitamin D (Oyster Shell Calcium/Vitamin D 500 Mg-200 Iu) 1 tab PO BIDWM [facility] Last Admin: 07/04/17 08:35 Dose: 1 tab Chlorthalidone (Hygroton) 12.5 mg PO DAILY [facility] Last Admin: 07/04/17 08:34 Dose: 12.5 mg Cholecalciferol (Vitamin D) 2,000 iu PO DAILY [facility] Last Admin: 07/04/17 08:35 Dose: 2,000 iu Dextrose (Dextrose 50% Inj) 0 ml IV STAT PRN; Protocol PRN Reason: Hypoglycemia Protocol Dextrose (Glutose 15) 0 gm PO ONCE PRN; Protocol PRN Reason: Hypoglycemia Protocol Dipyridamole/Aspirin (Aggrenox 25-200 Mg) 1 ea PO BID [facility] Last Admin: 07/04/17 08:33 Dose: 1 ea Enoxaparin Sodium (Lovenox) 30 mg SC DAILY [facility] PRN Reason: Protocol Last Admin: 07/04/17 08:35 Dose: 30 mg Glucagon (Glucagen Diagnostic Kit) 0 mg IM STAT PRN; Protocol PRN Reason: Hypoglycemia Protocol Insulin Detemir (Levemir) 18 units SC [facility] Last Admin: 07/03/17 22:07 Dose: 18 units Insulin Human Regular (Humulin R) 4 units SC AC [facility] Last Admin: 07/04/17 08:00 Dose: 4 units Insulin Human Regular (Humulin R) 0 units SC ACHS [facility] PRN Reason: Protocol Last Admin: 07/04/17 06:45 Dose: Not Given Lisinopril (Zestril) 40 mg PO DAILY [facility] Last Admin: 07/04/17 08:33 Dose: 40 mg Morphine Sulfate (Morphine Immediate Release Tab) 15 mg PO BID [facility] Last Admin: 07/04/17 08:30 Dose: 15 mg Multivitamins/Minerals (Therapeutic-M Tab) 1 tab PO DAILY [facility] Last Admin: 07/04/17 08:34 Dose: 1 tab Ondansetron HCl (Zofran Inj) 4 mg IVP Q6 PRN PRN Reason: Nausea/Vomiting Senna/Docusate Sodium (Senokot S 50 Mg-8.6 Mg) 2 tab PO HS [facility] Last Admin: 07/03/17 21:57 Dose: 2 tab Sertraline HCl (Zoloft) 50 mg PO DAILY [facility] Last Admin: 07/04/17 08:34 Dose: 50 mg Sitagliptin Phosphate (Januvia) 50 mg PO DAILY [facility] Last Admin: 07/04/17 08:33 Dose: 50 mg Tramadol HCl (Ultram) 50 mg PO Q6 PRN PRN Reason: Pain, severe (8-10) - Labs Labs: 07/04/17 05:05 07/04/17 05:05 PT 12.0 Seconds (9.8-13.1) 07/02/17 06:26 INR 1.1 (0.9-1.2) 07/02/17 06:26 APTT 24.7 Seconds (25.6-37.1) L 07/02/17 06:26 - Constitutional Appears: Well, Non-toxic, No Acute Distress - Head Exam Head Exam: NORMOCEPHALIC Additional comments: s/p head trauma, no gross deformity noted on examination mild left upper lip ecchymosis, resolving since admission - Eye Exam Eye Exam: Normal appearance Pupil Exam: PERRL - ENT Exam ENT Exam: Normal Exam - Neck Exam Neck Exam: Full ROM, Normal Inspection. absent: Tenderness - Respiratory Exam Respiratory Exam: Clear to Ausculation Bilateral, NORMAL BREATHING PATTERN. absent: Wheezes - Cardiovascular Exam Cardiovascular Exam: REGULAR RHYTHM, +S1, +S2. absent: JVD - GI/Abdominal Exam GI & Abdominal Exam: Soft, Normal Bowel Sounds. absent: Tenderness - Rectal Exam Rectal Exam: Deferred - Extremities Exam Extremities Exam: Normal Capillary Refill, Normal Inspection. absent: Calf Tenderness Additional comments: volar splint intact to left forearm pt able to wiggle fingers without difficulty mild non pitting edema still present to left hand digits - Neurological Exam Neurological Exam: Alert, Awake, Oriented x3 - Psychiatric Exam Psychiatric exam: Normal Affect, Normal Mood - Skin Skin Exam: Intact, Normal Color Assessment and Plan - Assessment and Plan (Free Text) Plan: 1) Left Distal Ulna/Radius Fracture -on admission, CT of left upper extremity showed acute comminuted intraarticular fracture of distal radius with significant impaction of fracture fragments -Dr. Alcantara on consult -pt is now 5 days s/p ORIF of L comminuted wrist fracture -pt in volar splint to LUE, to be left clean, dry and intact -pain control with Morphine IR tab [facility] -c/w Tylenol and Tramadol prn pain -c/w PT -per ortho, pt is orthopedically stable at this time 2) Fall with traumatic subarachnoid hemorrhage -possibly secondary to seizure/arrythmia/ETOH -s/p 2 L NS in ED due to elevated total creatinine kinase (total WZ=250) -Prior ECHO in 09/2016: normal LVEF, normal systolic function -seen and evaluated by cardiology Dr. Alcantara -Repeat ECHO showed normal LVEF, normal LV size and wall thickness, mild dilation of L atrium, mild tricuspid regurgitation -As per neurology Dr. Estrada, ordered brain MRI w/o contrast, CTA head/neck and EEGs ordered -EEG showed no focal slowing, no seizure-like activity -CTA head/neck not done due to pt's kidney function (GFR 43) -Repeat CT head showed no interval change, no acute intracranial abnormalities -c/w PT/OT -c/w home meds -Dr. 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 -c/w home meds, however Regular Insulin substituted for Humalog 2/2 to shortage -HgA1C: 7.7 -insulin coverage scale -monitor BS 4) Hypertension -c/w home meds -Amlodipine discontinued -Chlorthalidone discontinued 5) Chronic Kidney Disease -Stage 3B -improving as when compared to 01/2017 values -2L IV NS hydration given on initial admission in ED -BUN/Cr: 33/1.4 -Est GFR: 36 -monitor kidney function 6) Constipation -last BM yesterday -continue Sennokot 7) Hyperlipidemia -c/w Atorvastatin -last lipid panel on previous admission WNL -new lipid panel ordered today - values WNL, continue statin therapy 7) Insomnia -C/w Zoloft 50mg PO daily 8) Diet -c/w heart healthy diet 9) DVT Prophylaxis -SCDs -c/w Aggrenox, Lovenox 10) Code Status -Full Code
[2017-07-04 11:42] LABS: CHOLESTEROL 101 mg/dL (0-199)
[2017-07-04] MEDS: Sodium Chloride 0.9% 1,000 ML IV SCH (15:40)
[2017-07-04] MEDS: Insulin Detemir 100 Units/ml Inj SC SCH (21:18)
[2017-07-04] MEDS: Docusate-Senna 50 mg-8.6 mg Tab PO SCH (21:19)
[2017-07-05] MEDS: Sodium Chloride 0.9% 1,000 ML IV SCH (01:15)
[2017-07-05 06:22] LABS: POTASSIUM 4.8 MMOL/L (3.6-5.0)
[2017-07-05] MEDS: Insulin Regular 100 units/ml SC SCH ×7 (06:44→21:27)
[2017-07-05] MEDS: Multivitamin With Minerals Tab PO SCH (08:31)
[2017-07-05] MEDS: Aspirin-Dipyridamole 200-25 mg ER Cap PO SCH ×2 (08:31→17:24)
[2017-07-05] MEDS: Enoxaparin 30 mg Syringe SC SCH (08:32)
[2017-07-05] MEDS: Calcium-Vit D 500 mg-200 Units Tab UD PO SCH ×2 (08:32→17:25)
[2017-07-05] MEDS: Cholecalciferol 1,000 INTLU TAB PO SCH (08:33)
[2017-07-05] MEDS: Morphine 15 mg Immediate Release Tab PO SCH ×2 (08:36→17:28)
[2017-07-05] MEDS ORDERED: Psyllium Packet PO SCH (09:00)
--- NOTE | 2017-07-05 10:11 | CP.PCM.PN ---
Subjective - Date & Time of Evaluation Date of Evaluation: 07/05/17 Time of Evaluation: 10:09 - Subjective Subjective: 86 y/o female seen this morning in acute rehab. Pt was participating in physical therapy, riding the stationary bicycle prior to visit. Pt says she is having no pain at all in the left wrist. Pt says she has something in the roof of her mouth that is preventing her from being able to eat properly. Pt says she only had a little breakfast because of it. Pt has no other physical complaints. Pt says she is having normal bowel movements. Pt denies F/C/N/V/CP/ SOB. Objective - Vital Signs/Intake and Output Vital Signs (last 24 hours): Temp Pulse Resp BP Pulse Ox 98.0 F 72 22 131/66 94 L 07/05/17 09:16 07/05/17 09:16 07/05/17 09:16 07/05/17 09:16 07/05/17 09:16 Intake and Output: 07/05/17 07/05/17 06:59 18:59 Intake Total 1260 Output Total 850 Balance 410 - Medications Medications: Current Medications Acetaminophen (Tylenol 325mg Tab) 650 mg PO Q6 PRN PRN Reason: Pain, moderate (4-7) Atorvastatin Calcium (Lipitor) 40 mg PO HS [facility] Last Admin: 07/04/17 21:18 Dose: 40 mg Calcium/Vitamin D (Oyster Shell Calcium/Vitamin D 500 Mg-200 Iu) 1 tab PO BIDWM [facility] Last Admin: 07/05/17 08:32 Dose: 1 tab Cholecalciferol (Vitamin D) 2,000 iu PO DAILY [facility] Last Admin: 07/05/17 08:33 Dose: 2,000 iu Dextrose (Dextrose 50% Inj) 0 ml IV STAT PRN; Protocol PRN Reason: Hypoglycemia Protocol Dextrose (Glutose 15) 0 gm PO ONCE PRN; Protocol PRN Reason: Hypoglycemia Protocol Dipyridamole/Aspirin (Aggrenox 25-200 Mg) 1 ea PO BID [facility] Last Admin: 07/05/17 08:31 Dose: 1 ea Enoxaparin Sodium (Lovenox) 30 mg SC DAILY [facility] PRN Reason: Protocol Last Admin: 07/05/17 08:32 Dose: 30 mg Glucagon (Glucagen Diagnostic Kit) 0 mg IM STAT PRN; Protocol PRN Reason: Hypoglycemia Protocol Sodium Chloride (Sodium Chloride 0.9%) 1,000 mls @ 80 mls/hr IV .[id number] [facility] Stop: 07/05/17 12:36 Last Admin: 07/05/17 01:15 Dose: 80 mls/hr Insulin Detemir (Levemir) 18 units SC HS [facility] Last Admin: 07/04/17 21:18 Dose: 18 units Insulin Human Regular (Humulin R) 4 units SC AC [facility] Last Admin: 07/05/17 08:00 Dose: 4 units Insulin Human Regular (Humulin R) 0 units SC ACHS [facility] PRN Reason: Protocol Last Admin: 07/05/17 06:44 Dose: Not Given Morphine Sulfate (Morphine Immediate Release Tab) 15 mg PO BID [facility] Last Admin: 07/05/17 08:36 Dose: 15 mg Multivitamins/Minerals (Therapeutic-M Tab) 1 tab PO DAILY [facility] Last Admin: 07/05/17 08:31 Dose: 1 tab Ondansetron HCl (Zofran Inj) 4 mg IVP Q6 PRN PRN Reason: Nausea/Vomiting Psyllium Hydrophilic Mucilloid (Hydrocil Instant) 1 pkt PO BID [facility] Last Admin: 07/05/17 08:32 Dose: 1 pkt Senna/Docusate Sodium (Senokot S 50 Mg-8.6 Mg) 2 tab PO [facility] Last Admin: 07/04/17 21:19 Dose: 2 tab Sertraline HCl (Zoloft) 50 mg PO DAILY [facility] Last Admin: 07/04/17 08:34 Dose: 50 mg Sitagliptin Phosphate (Januvia) 50 mg PO DAILY [facility] Last Admin: 07/05/17 08:32 Dose: 50 mg Tramadol HCl (Ultram) 50 mg PO Q6 PRN PRN Reason: Pain, severe (8-10) - Labs Labs: 07/04/17 05:05 07/05/17 05:45 PT 12.0 Seconds (9.8-13.1) 07/02/17 06:26 INR 1.1 (0.9-1.2) 07/02/17 06:26 APTT 24.7 Seconds (25.6-37.1) L 07/02/17 06:26 - Constitutional Appears: Well, Non-toxic, No Acute Distress - Head Exam Head Exam: NORMOCEPHALIC Additional comments: s/p head trauma, no gross deformity mild upper lip ecchymosis, improving - Eye Exam Eye Exam: Normal appearance Pupil Exam: NORMAL ACCOMODATION, PERRL - ENT Exam Additional comments: Circular ulcerative lesion noted to throat, no active drainage Mild thrush noted to tongue - Neck Exam Neck Exam: Full ROM, Normal Inspection. absent: Tenderness - Respiratory Exam Respiratory Exam: Clear to Ausculation Bilateral, NORMAL BREATHING PATTERN. absent: Rhonchi, Wheezes, Respiratory Distress - Cardiovascular Exam Cardiovascular Exam: REGULAR RHYTHM, +S1, +S2. absent: JVD - GI/Abdominal Exam GI & Abdominal Exam: Soft, Normal Bowel Sounds. absent: Distended, Tenderness - Rectal Exam Rectal Exam: Deferred - Extremities Exam Extremities Exam: Calf Tenderness, Normal Capillary Refill, Normal Inspection. absent: Pedal Edema Additional comments: left forearm in volar splint able to wiggle fingers mild digit swelling x 5 non tender upon active and passive flexion and extension of digits - Neurological Exam Neurological Exam: Alert, Awake, Oriented x3 - Psychiatric Exam Psychiatric exam: Normal Affect, Normal Mood - Skin Skin Exam: Dry, Intact, Normal Color Assessment and Plan - Assessment and Plan (Free Text) Plan: 1) Left Distal Ulna/Radius Fracture -on admission, CT of left upper extremity showed acute comminuted intraarticular fracture of distal radius with significant impaction of fracture fragments -Dr. Alcantara on consult -pt is now 5 days s/p ORIF of L comminuted wrist fracture -pt in volar splint to LUE, to be left clean, dry and intact -pain control with Morphine IR tab ELINA -c/w Tylenol and Tramadol prn pain -c/w PT -per ortho, pt is orthopedically stable at this time 2) Fall with traumatic subarachnoid hemorrhage -possibly secondary to seizure/arrythmia/ETOH -s/p 2 L NS in ED due to elevated total creatinine kinase (total PC=210) -Prior ECHO in 09/2016: normal LVEF, normal systolic function -seen and evaluated by cardiology Dr. Alcantara -Repeat ECHO showed normal LVEF, normal LV size and wall thickness, mild dilation of L atrium, mild tricuspid regurgitation -As per neurology Dr. Estrada, ordered brain MRI w/o contrast, CTA head/neck and EEGs ordered -EEG showed no focal slowing, no seizure-like activity -CTA head/neck not done due to pt's kidney function (GFR 43) -Repeat CT head showed no interval change, no acute intracranial abnormalities -c/w PT/OT -c/w home meds -Dr. Hayes consulted for neurosurgery, cleared pt for D/C from neurosurgery standpoint -Repeat CT head showed no interval change, no acute intracranial abnormalities -Aggrenox resumed per neuro -continue PT/OT in acute rehab 3) Hyponatremia -Na+ improved to 136 today from 131 -Serum osmolality elevated -continue IV fluids in rehab 4) IDDM2 -stable at this time -c/w home meds, however Regular Insulin substituted for Humalog 2/2 to shortage -HgA1C: 7.7 -insulin coverage scale -monitor BS 5) Hypertension -c/w home meds -Amlodipine discontinued -Chlorthalidone discontinued 6) Chronic Kidney Disease -Stage 3B -improving as when compared to 01/2017 values -2L IV NS hydration given on initial admission in ED -BUN/Cr: 28/1.1 -Est GFR: 47 -continue to monitor kidney function 7) Mouth lesion -noted by pt since operation -Nystatin swallow, Magic Mouthwash qid 8) Constipation -last BM yesterday -continue Sennokot 9) Hyperlipidemia -c/w Atorvastatin -last lipid panel on previous admission WNL -new lipid panel ordered today - values WNL, continue statin therapy 10) Insomnia -C/w Zoloft 50mg PO daily 11) Diet -c/w heart healthy diet 12) DVT Prophylaxis -SCDs -c/w Aggrenox, Lovenox 13) Code Status -Full Code
[2017-07-05] MEDS: Nystatin 100,000 Units/ml Oral Susp 5 ml UD PO SCH ×3 (14:03→21:32)
[2017-07-05] MEDS: Mag&Al/Simet/Diphen/Lido 237 ML KIT PO SCH ×3 (14:03→21:39)
[2017-07-05] MEDS: Insulin Detemir 100 Units/ml Inj SC SCH (21:28)
[2017-07-05] MEDS: Docusate-Senna 50 mg-8.6 mg Tab PO SCH (21:33)
[2017-07-06 06:45] LABS: CALCIUM 9.1 mg/dL (8.4-10.2); POTASSIUM 4.8 MMOL/L (3.6-5.0)
[2017-07-06] MEDS: Insulin Regular 100 units/ml SC SCH ×5 (07:13→16:45)
--- NOTE | 2017-07-06 08:33 | CP.PCM.PN ---
Subjective - Date & Time of Evaluation Date of Evaluation: 07/06/17 Time of Evaluation: 08:33 - Subjective Subjective: 86 y/o female seen at bedside in acute rehab this morning. Pt is attempting to eat her breakfast upon visit but says the pain in the roof of her mouth is making it difficult to eat solid foods. Pt is only able to tolerate softer foods like pudding and yogurt. Pt says it feels as though something scraped the roof of her mouth, and she has been having this pain since her surgery. Pt also admits to mild pain in the fingers when someone tries to bend them. Pt denies numbness or tingling in the left hand or wrist. Pt denies F/C/N/V/CP/SOB. Objective - Vital Signs/Intake and Output Vital Signs (last 24 hours): Temp Pulse Resp BP Pulse Ox 98.2 F 75 20 134/58 L 96 07/05/17 19:56 07/05/17 19:56 07/05/17 19:56 07/05/17 19:56 07/05/17 19:56 Intake and Output: 07/06/17 07/06/17 06:59 18:59 Intake Total 300 Balance 300 - Medications Medications: Current Medications Acetaminophen (Tylenol 325mg Tab) 650 mg PO Q6 PRN PRN Reason: Pain, moderate (4-7) Atorvastatin Calcium (Lipitor) 40 mg PO HS [facility] Last Admin: 07/05/17 21:32 Dose: 40 mg Calcium/Vitamin D (Oyster Shell Calcium/Vitamin D 500 Mg-200 Iu) 1 tab PO BIDWM [facility] Last Admin: 07/05/17 17:25 Dose: 1 tab Cholecalciferol (Vitamin D) 2,000 iu PO DAILY [facility] Last Admin: 07/05/17 08:33 Dose: 2,000 iu Dextrose (Dextrose 50% Inj) 0 ml IV STAT PRN; Protocol PRN Reason: Hypoglycemia Protocol Dextrose (Glutose 15) 0 gm PO ONCE PRN; Protocol PRN Reason: Hypoglycemia Protocol Dipyridamole/Aspirin (Aggrenox 25-200 Mg) 1 ea PO BID [facility] Last Admin: 07/05/17 17:24 Dose: 1 ea Enoxaparin Sodium (Lovenox) 30 mg SC DAILY [facility] PRN Reason: Protocol Last Admin: 07/05/17 08:32 Dose: 30 mg Glucagon (Glucagen Diagnostic Kit) 0 mg IM STAT PRN; Protocol PRN Reason: Hypoglycemia Protocol Insulin Detemir (Levemir) 18 units SC HS [facility] Last Admin: 07/05/17 21:28 Dose: 18 units Insulin Human Regular (Humulin R) 4 units SC AC [facility] Last Admin: 07/05/17 17:00 Dose: 4 units Insulin Human Regular (Humulin R) 0 units SC ACHS [facility] PRN Reason: Protocol Last Admin: 07/06/17 07:13 Dose: Not Given Morphine Sulfate (Morphine Immediate Release Tab) 15 mg PO BID [facility] Last Admin: 07/05/17 17:28 Dose: 15 mg Multivitamins/Minerals (Therapeutic-M Tab) 1 tab PO DAILY [facility] Last Admin: 07/05/17 08:31 Dose: 1 tab Nystatin (Nystatin Oral Susp) 5 ml PO QID [facility] Last Admin: 07/05/17 21:32 Dose: 5 ml Saliva Substitute (First Magic Mouthwash) 5 ml PO QID [facility] Last Admin: 07/05/17 21:39 Dose: 5 ml Senna/Docusate Sodium (Senokot S 50 Mg-8.6 Mg) 2 tab PO HS [facility] Last Admin: 07/05/17 21:33 Dose: 2 tab Sertraline HCl (Zoloft) 50 mg PO DAILY [facility] Last Admin: 07/05/17 09:00 Dose: 50 mg Sitagliptin Phosphate (Januvia) 50 mg PO DAILY [facility] Last Admin: 07/05/17 08:32 Dose: 50 mg Tramadol HCl (Ultram) 50 mg PO Q6 PRN PRN Reason: Pain, severe (8-10) - Labs Labs: 07/04/17 05:05 07/06/17 05:25 PT 12.0 Seconds (9.8-13.1) 07/02/17 06:26 INR 1.1 (0.9-1.2) 07/02/17 06:26 APTT 24.7 Seconds (25.6-37.1) L 07/02/17 06:26 - Constitutional Appears: Well, Non-toxic, No Acute Distress - Head Exam Head Exam: NORMOCEPHALIC Additional comments: s/p head trauma, no gross deformity mild upper lip ecchymosis, improving - Eye Exam Eye Exam: Normal appearance Pupil Exam: NORMAL ACCOMODATION, PERRL - ENT Exam Additional comments: Circular ulcerative lesion noted to throat, no active drainage Mild thrush noted to tongue - Neck Exam Neck Exam: Full ROM, Normal Inspection. absent: Tenderness - Respiratory Exam Respiratory Exam: Clear to Ausculation Bilateral. absent: Rhonchi, Wheezes - Cardiovascular Exam Cardiovascular Exam: REGULAR RHYTHM, +S1, +S2 - GI/Abdominal Exam GI & Abdominal Exam: Soft, Normal Bowel Sounds. absent: Tenderness - Rectal Exam Rectal Exam: Deferred - Extremities Exam Additional comments: left forearm in volar splint able to wiggle fingers mild digit swelling x 5 non tender upon active flexion and extension of digits mild to moderate tenderness elicited upon passive flexion of digits 2-4 - Neurological Exam Neurological Exam: Alert, Awake, Oriented x3 - Psychiatric Exam Psychiatric exam: Normal Affect, Normal Mood - Skin Skin Exam: Intact, Normal Color Assessment and Plan - Assessment and Plan (Free Text) Assessment: 1) Left Distal Ulna/Radius Fracture -on admission, CT of left upper extremity showed acute comminuted intraarticular fracture of distal radius with significant impaction of fracture fragments -Dr. Alcantara on consult -pt is now 1 week s/p ORIF of L comminuted wrist fracture -pt in volar splint to LUE, to be left clean, dry and intact -pain control with Morphine IR tab ELINA -c/w Tylenol and Tramadol prn pain -c/w PT -per ortho, pt is orthopedically stable at this time 2) Fall with traumatic subarachnoid hemorrhage -possibly secondary to seizure/arrythmia/ETOH -s/p 2 L NS in ED due to elevated total creatinine kinase (total IM=361) -Prior ECHO in 09/2016: normal LVEF, normal systolic function -seen and evaluated by cardiology Dr. Alcantara -Repeat ECHO showed normal LVEF, normal LV size and wall thickness, mild dilation of L atrium, mild tricuspid regurgitation -As per neurology Dr. Estrada, ordered brain MRI w/o contrast, CTA head/neck and EEGs ordered -EEG showed no focal slowing, no seizure-like activity -CTA head/neck not done due to pt's kidney function (GFR 43) -Repeat CT head showed no interval change, no acute intracranial abnormalities -c/w PT/OT -c/w home meds -Dr. 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 -c/w home meds, however Regular Insulin substituted for Humalog 2/2 to shortage -HgA1C: 7.7 -insulin coverage scale -monitor BS 5) Throat lesion -noted by pt since operation -Nystatin oral suspension, Magic Mouthwash qid -ENT consulted, recommendations appreciated 6) Hypertension -currently controlled without meds, remains stable -monitor closely as low BP could be due to decreased food/drink intake -will adjust or add home meds as needed 7) Chronic Kidney Disease -Stage 3B -improving as when compared to 01/2017 values -2L IV NS hydration given on initial admission in ED -BUN/Cr: 21/1.1 -Est GFR: 47 -continue to monitor kidney function 8) Constipation -last BM yesterday -continue Sennokot 9) Hyperlipidemia -c/w Atorvastatin -last lipid panel on previous admission WNL -new lipid panel ordered today - values WNL, continue statin therapy 10) Insomnia -C/w Zoloft 50mg PO daily 11) Diet -c/w heart healthy diet 12) DVT Prophylaxis -SCDs -c/w Aggrenox, Lovenox 13) Code Status -Full Code
[2017-07-06] MEDS: Morphine 15 mg Immediate Release Tab PO SCH ×2 (08:38→16:42)
[2017-07-06] MEDS: Cholecalciferol 1,000 INTLU TAB PO SCH (08:39)
[2017-07-06] MEDS: Nystatin 100,000 Units/ml Oral Susp 5 ml UD PO SCH ×4 (08:39→21:40)
[2017-07-06] MEDS: Aspirin-Dipyridamole 200-25 mg ER Cap PO SCH ×2 (08:39→16:44)
[2017-07-06] MEDS: Calcium-Vit D 500 mg-200 Units Tab UD PO SCH ×2 (08:40→16:43)
[2017-07-06] MEDS: Enoxaparin 30 mg Syringe SC SCH (08:40)
[2017-07-06] MEDS: Multivitamin With Minerals Tab PO SCH (08:41)
[2017-07-06] MEDS: Mag&Al/Simet/Diphen/Lido 237 ML KIT PO SCH ×4 (08:41→21:37)
--- NOTE | 2017-07-06 12:28 | PSY.TMCNF ---
Nursing - Vital Signs Vital Signs (Last 8 hours): Vital Signs 07/06/17 07/06/17 10:00 10:52 Temperature 98.1 F 98.1 F Pulse Rate 82 82 Respiratory 20 20 Rate Blood Pressure 142/76 142/76 O2 Sat by Pulse 94 L Oximetry Pain: 0 - Precautions: Precautions: Fall Prevention - Medications/Other Issues Comment: COMPLAINING OF PAIN ON UPPER GUM , PALATE, AND THROAT. TENDS TO BE FEARFUL OF WALKING - Consults Comment: DR. ESCOBAR, DR. CHUNG, DR. SON - Skin Incision Line Treatment: (+) SHORT ARM SPLINT WRAPPED WITH CONSTANTIN BANDAGE. - Toileting Toileting: Minimal Assistance - Bladder Management Bladder Pattern: Normal Voiding Method: Toilet Bladder Management: Supervision Frequency of Accidents: 0 - Bowel Management Bowel Pattern: Normal Bowel Management: Modified Independent Frequency of Accidents: 0 - Transfers Transfers: Minimal Assistance - ADL's ADL's: Moderate Assistance - Pain Management Comments: ON MSIR 15MG BID - Patient/Family Teaching Comments: CARE POST ORIF, ELEVATING RUE, AND SAFETY PRECAUTIONS - Goals/Time Frame Comments: PER MULTIDISCIPLINARY CARE PLANS AND GOALS - Provider Provider: NEVILLE CORDERO BSN RN CRRN Physical Therapy - Bed Mobility Bed Mobility: Verbal Cues, Minimal Assistance - Transfers Sit to Stand: Verbal Cues, Contact Guard, Minimal Assistance - Ambulation Level of Assistance: Verbal Cues, Contact Guard, Minimal Assistance Assistive Devices: N/A, Narrow base quad cane - Stair Negotiation Stairs: Level of Assistance: Not Tested - Standing Balance Static Stand: Contact Guard Assist Dynamic Stand: Contact Guard Assist, Minimal Assistance - Pain Management Techniques: Distraction - Insight/Carryover Insight/Carryover: Good - Patient/Family Education Comment: -ongoing for adls, functional transfers/mobility using adaptive/safety strategies. -educated in LUE management: elevation, self ROM/AAROm in L shoulder elbow, digits, edema management. -Pt needs additional training/ education tto improve carryover and safety. -pain/edema management LUE - Assessment/Plan Assessment: Pt is a 86 year old female with dx: subarachnoid hemorrhage, L Wrist ORIF--NWB. *Precautions: falls, cardiac, LUE-NWB, LUE sling especially during standing activities/transfers and ambulation.. Pt presents with the following impairments: -++Anxiety. ++pain in L wrist/forearm area. -impaired A/PROM/strength in LUE and RUE. -impaired overall endurance/activity tolerance. -impaired verall strength. -impaired standing balance/tolerance. - impaired safety awareness. -impaired knowledge of adaptive/compensatory strategies--which impact on functional performance of self care, functional transfers/mobility and Iadls. Pt will benefit from skilled Occupational therapy to maximize overall function in self care, functional transfers/ mobility using adaptive/compensatory strategies. Pt may benefit from psychology consult to adjust to cahnges in functional status so can move forward. *Goal: Mod I for transfers/bed mobility, intermittent Supervision for bathing/dressing, Iadls using adaptive devices prn - Goals Timeframe: 7 days Goals: -Feeding: I after setup. -Grooming: S/setup seated. -Upper body bathing /dressing: Min assist and verbal cues dressing LUE first seated/adaptive/ compensatory strategies. -Lower body dressing/bathing: Min assist and verbal cues with assistive devices. -Toileting: Moderate assist and verbal cues. -LUE : increase L shoulder AROM, elbow flex/extension and digits to WFLS for improved adl - Provider Therapist: Ana Lilia Jacobs PT License Number: [id number] Occupational Therapy - Arousal/Attention/Orientation Patient Orientation: Person, Place, Time, Appropriate to Age, Appropriate to Situation - ADL/IADL Self Feeding: Supervision, Verbal Cues, Set-up Help Grooming: Verbal Cues, Set-up Help, Minimal Assistance Bathing-Upper Extremity: Verbal Cues, Set-up Help, Maximum Assistance Bathing-Lower Extremity: Verbal Cues, Set-up Help, Maximum Assistance Dressing-Upper Extremity: Verbal Cues, Set-up Help, Maximum Assistance Dressing-Lower Extremity: Verbal Cues, Set-up Help, Maximum Assistance, Dependent - Sitting Balance Static Sitting: Supervision Dynamic Sitting: Reaches across midline, Reaches out of base of support, Reaches within base of support, Minimal Assistance - Transfers Wheelchair to Bed Transfers: Verbal Cues, Set-up Help, Minimal Assistance Toilet Transfers: Verbal Cues, Set-up Help, Minimal Assistance Tub Transfers: Verbal Cues, Set-up Help, Minimal Assistance - Upper Extremity Status Right Upper Extremity Comment: A/PROMis WFLS; strength 4-/5 Left Upper Extremity Comment: Pt immobilized post L wrist ORIF; . PROM/AROM in L shoulder, elbow, and digits limited by pain and edema or anticipation of pain - Pain Alleviating Techniques: Distraction - Insight/Carryover Insight/Carryover: Good - Patient/Family Education Comment: -ongoing for adls, functional transfers/mobility using adaptive/safety strategies. -educated in LUE management: elevation, self ROM/AAROm in L shoulder elbow, digits, edema management. -Pt needs additional training/ education tto improve carryover and safety. -pain/edema management LUE - Assessment/Plan Assessment: Pt is a 86 year old female with dx: subarachnoid hemorrhage, L Wrist ORIF--NWB. *Precautions: falls, cardiac, LUE-NWB, LUE sling especially during standing activities/transfers and ambulation.. Pt presents with the following impairments: -++Anxiety. ++pain in L wrist/forearm area. -impaired A/PROM/strength in LUE and RUE. -impaired overall endurance/activity tolerance. -impaired verall strength. -impaired standing balance/tolerance. - impaired safety awareness. -impaired knowledge of adaptive/compensatory strategies--which impact on functional performance of self care, functional transfers/mobility and Iadls. Pt will benefit from skilled Occupational therapy to maximize overall function in self care, functional transfers/ mobility using adaptive/compensatory strategies. Pt may benefit from psychology consult to adjust to cahnges in functional status so can move forward. *Goal: Mod I for transfers/bed mobility, intermittent Supervision for bathing/dressing, Iadls using adaptive devices prn - Goals Timeframe: 7 days Goals: -Feeding: I after setup. -Grooming: S/setup seated. -Upper body bathing /dressing: Min assist and verbal cues dressing LUE first seated/adaptive/ compensatory strategies. -Lower body dressing/bathing: Min assist and verbal cues with assistive devices. -Toileting: Moderate assist and verbal cues. -LUE : increase L shoulder AROM, elbow flex/extension and digits to WFLS for improved adl - Provider Therapist: ARLINE Thorpe/L License Number: [id number] Speech Therapy - Plan Assessment: Pt is a 86 year old female with dx: subarachnoid hemorrhage, L Wrist ORIF--NWB. *Precautions: falls, cardiac, LUE-NWB, LUE sling especially during standing activities/transfers and ambulation.. Pt presents with the following impairments: -++Anxiety. ++pain in L wrist/forearm area. -impaired A/PROM/strength in LUE and RUE. -impaired overall endurance/activity tolerance. -impaired verall strength. -impaired standing balance/tolerance. - impaired safety awareness. -impaired knowledge of adaptive/compensatory strategies--which impact on functional performance of self care, functional transfers/mobility and Iadls. Pt will benefit from skilled Occupational therapy to maximize overall function in self care, functional transfers/ mobility using adaptive/compensatory strategies. Pt may benefit from psychology consult to adjust to cahnges in functional status so can move forward. *Goal: Mod I for transfers/bed mobility, intermittent Supervision for bathing/dressing, Iadls using adaptive devices prn Recreational Therapy - Participation Participation: Participates in Individual and/or Group Sessions - Attendance Attendance: Daily - Activities Leisure Activities: Television - Socialization Level of Socialization: Initiates/interacts freely with care givers and peer - Diversional Time Diversional Time: television, socializing - Assessment Assessment/Plan: Pt is a 86 year old female with dx: subarachnoid hemorrhage, L Wrist ORIF--NWB. *Precautions: falls, cardiac, LUE-NWB, LUE sling especially during standing activities/transfers and ambulation.. Pt presents with the following impairments: -++Anxiety. ++pain in L wrist/forearm area. -impaired A/PROM/strength in LUE and RUE. -impaired overall endurance/activity tolerance. -impaired verall strength. -impaired standing balance/tolerance. - impaired safety awareness. -impaired knowledge of adaptive/compensatory strategies--which impact on functional performance of self care, functional transfers/mobility and Iadls. Pt will benefit from skilled Occupational therapy to maximize overall function in self care, functional transfers/ mobility using adaptive/compensatory strategies. Pt may benefit from psychology consult to adjust to cahnges in functional status so can move forward. *Goal: Mod I for transfers/bed mobility, intermittent Supervision for bathing/dressing, Iadls using adaptive devices prn - Provider Therapist: Radha Ewing, LIFT SUPERVISOR #[id number] Nutrition - Current Diet Current Diet/ Supplement/ Feedings: Heart healthy low consistent CHO Mech altered(Finely chopped) - Appetite Percent Meal Consumed: 50-74% - Comments Comments: CARE POST ORIF, ELEVATING RUE, AND SAFETY PRECAUTIONS - Assessment/Goals/Time Frame Assessment/Goals/Time Frame: COMPLAINING OF PAIN ON UPPER GUM , PALATE, AND THROAT. TENDS TO BE FEARFUL OF WALKING - Provider Provider: Parvin Ann RD Case Management - Discharge Plan Discharge Plan: Home with significant other/family Rehabilitation Plan - Treatment Plan Treatment Plan: Physical Therapy, Occupational Therapy, Dietary, Patient/Family Education - Recommendation Recommendation: Physical Therapy, Occupational Therapy, Dietary, Patient/Family Education - Discharge Plan Discharge to: Home ([id number])
--- NOTE | 2017-07-06 15:30 | CP.PCM.PN ---
Subjective - Date & Time of Evaluation Date of Evaluation: 07/05/17 Time of Evaluation: 18:30 - Subjective Subjective: no acute complaints at present Objective - Vital Signs/Intake and Output Vital Signs (last 24 hours): Temp Pulse Resp BP Pulse Ox 98.1 F 82 20 142/76 94 L 07/06/17 10:52 07/06/17 10:52 07/06/17 10:52 07/06/17 10:52 07/06/17 10:00 Intake and Output: 07/06/17 07/06/17 06:59 18:59 Intake Total 300 Balance 300 - Medications Medications: Current Medications Acetaminophen (Tylenol 325mg Tab) 650 mg PO Q6 PRN PRN Reason: Pain, moderate (4-7) Atorvastatin Calcium (Lipitor) 40 mg PO HS [facility] Last Admin: 07/05/17 21:32 Dose: 40 mg Calcium/Vitamin D (Oyster Shell Calcium/Vitamin D 500 Mg-200 Iu) 1 tab PO BIDWM [facility] Last Admin: 07/06/17 08:40 Dose: 1 tab Cholecalciferol (Vitamin D) 2,000 iu PO DAILY [facility] Last Admin: 07/06/17 08:39 Dose: 2,000 iu Dextrose (Dextrose 50% Inj) 0 ml IV STAT PRN; Protocol PRN Reason: Hypoglycemia Protocol Dextrose (Glutose 15) 0 gm PO ONCE PRN; Protocol PRN Reason: Hypoglycemia Protocol Dipyridamole/Aspirin (Aggrenox 25-200 Mg) 1 ea PO BID [facility] Last Admin: 07/06/17 08:39 Dose: 1 ea Enoxaparin Sodium (Lovenox) 30 mg SC DAILY [facility] PRN Reason: Protocol Last Admin: 07/06/17 08:40 Dose: 30 mg Glucagon (Glucagen Diagnostic Kit) 0 mg IM STAT PRN; Protocol PRN Reason: Hypoglycemia Protocol Insulin Detemir (Levemir) 18 units SC HS [facility] Last Admin: 07/05/17 21:28 Dose: 18 units Insulin Human Regular (Humulin R) 4 units SC AC [facility] Last Admin: 07/06/17 12:00 Dose: 4 units Insulin Human Regular (Humulin R) 0 units SC BIDWM [facility] PRN Reason: Protocol Ketorolac Tromethamine (Toradol) 30 mg IVP Q24H [facility] Last Admin: 07/06/17 14:13 Dose: Not Given Morphine Sulfate (Morphine Immediate Release Tab) 15 mg PO BID [facility] Last Admin: 07/06/17 08:38 Dose: 15 mg Multivitamins/Minerals (Therapeutic-M Tab) 1 tab PO DAILY [facility] Last Admin: 07/06/17 08:41 Dose: 1 tab Nystatin (Nystatin Oral Susp) 5 ml PO QID [facility] Last Admin: 07/06/17 12:50 Dose: 5 ml Saliva Substitute (First Magic Mouthwash) 5 ml PO QID [facility] Last Admin: 07/06/17 12:50 Dose: 5 ml Senna/Docusate Sodium (Senokot S 50 Mg-8.6 Mg) 2 tab PO HS [facility] Last Admin: 07/05/17 21:33 Dose: 2 tab Sertraline HCl (Zoloft) 50 mg PO DAILY [facility] Last Admin: 07/06/17 08:40 Dose: 50 mg Sitagliptin Phosphate (Januvia) 50 mg PO DAILY [facility] Last Admin: 07/06/17 08:41 Dose: 50 mg Tramadol HCl (Ultram) 50 mg PO Q6 PRN PRN Reason: Pain, severe (8-10) - Labs Labs: 07/04/17 05:05 07/06/17 05:25 PT 12.0 Seconds (9.8-13.1) 07/02/17 06:26 INR 1.1 (0.9-1.2) 07/02/17 06:26 APTT 24.7 Seconds (25.6-37.1) L 07/02/17 06:26 - Head Exam Head Exam: ATRAUMATIC, NORMAL INSPECTION, NORMOCEPHALIC - Eye Exam Eye Exam: EOMI, Normal appearance, PERRL Pupil Exam: NORMAL ACCOMODATION - ENT Exam ENT Exam: Mucous Membranes Moist, Normal Exam - Neck Exam Neck Exam: Full ROM, Normal Inspection - Respiratory Exam Respiratory Exam: Clear to Ausculation Bilateral, NORMAL BREATHING PATTERN - Cardiovascular Exam Cardiovascular Exam: REGULAR RHYTHM - GI/Abdominal Exam GI & Abdominal Exam: Soft, Normal Bowel Sounds - Rectal Exam Rectal Exam: NORMAL INSPECTION - Exam External exam: NORMAL EXTERNAL EXAM - Extremities Exam Extremities Exam: Full ROM, Normal Capillary Refill, Normal Inspection - Back Exam Back Exam: NORMAL INSPECTION - Neurological Exam Neurological Exam: Alert, Awake Neuro motor strength exam: Left Upper Extremity: 2/1, Right Upper Extremity: 4, Left Lower Extremity: 3, Right Lower Extremity: 4 - Psychiatric Exam Psychiatric exam: Normal Affect, Normal Mood - Skin Skin Exam: Dry, Intact Assessment and Plan (1) Closed fracture of left distal radius Assessment & Plan: plan for physical, occupational and rec therapy Status: Acute (2) Displaced fracture of left ulna styloid process, initial encounter for closed fracture Status: Acute (3) Episode of generalized weakness Status: Acute (4) Hyperglycemia Status: Acute (5) Hypertension Status: Acute (6) Traumatic subarachnoid hemorrhage Status: Acute
--- NOTE | 2017-07-06 15:33 | CP.PCM.PN ---
Subjective - Date & Time of Evaluation Date of Evaluation: 07/06/17 Time of Evaluation: 11:30 - Subjective Subjective: mild left arm discomfort Objective - Vital Signs/Intake and Output Vital Signs (last 24 hours): Temp Pulse Resp BP Pulse Ox 98.1 F 82 20 142/76 94 L 07/06/17 10:52 07/06/17 10:52 07/06/17 10:52 07/06/17 10:52 07/06/17 10:00 Intake and Output: 07/06/17 07/06/17 06:59 18:59 Intake Total 300 Balance 300 - Medications Medications: Current Medications Acetaminophen (Tylenol 325mg Tab) 650 mg PO Q6 PRN PRN Reason: Pain, moderate (4-7) Atorvastatin Calcium (Lipitor) 40 mg PO HS [facility] Last Admin: 07/05/17 21:32 Dose: 40 mg Calcium/Vitamin D (Oyster Shell Calcium/Vitamin D 500 Mg-200 Iu) 1 tab PO BIDWM [facility] Last Admin: 07/06/17 08:40 Dose: 1 tab Cholecalciferol (Vitamin D) 2,000 iu PO DAILY [facility] Last Admin: 07/06/17 08:39 Dose: 2,000 iu Dextrose (Dextrose 50% Inj) 0 ml IV STAT PRN; Protocol PRN Reason: Hypoglycemia Protocol Dextrose (Glutose 15) 0 gm PO ONCE PRN; Protocol PRN Reason: Hypoglycemia Protocol Dipyridamole/Aspirin (Aggrenox 25-200 Mg) 1 ea PO BID [facility] Last Admin: 07/06/17 08:39 Dose: 1 ea Enoxaparin Sodium (Lovenox) 30 mg SC DAILY [facility] PRN Reason: Protocol Last Admin: 07/06/17 08:40 Dose: 30 mg Glucagon (Glucagen Diagnostic Kit) 0 mg IM STAT PRN; Protocol PRN Reason: Hypoglycemia Protocol Insulin Detemir (Levemir) 18 units SC HS [facility] Last Admin: 07/05/17 21:28 Dose: 18 units Insulin Human Regular (Humulin R) 4 units SC AC [facility] Last Admin: 07/06/17 12:00 Dose: 4 units Insulin Human Regular (Humulin R) 0 units SC BIDWM [facility] PRN Reason: Protocol Ketorolac Tromethamine (Toradol) 30 mg IVP Q24H [facility] Last Admin: 07/06/17 14:13 Dose: Not Given Morphine Sulfate (Morphine Immediate Release Tab) 15 mg PO BID [facility] Last Admin: 07/06/17 08:38 Dose: 15 mg Multivitamins/Minerals (Therapeutic-M Tab) 1 tab PO DAILY [facility] Last Admin: 07/06/17 08:41 Dose: 1 tab Nystatin (Nystatin Oral Susp) 5 ml PO QID [facility] Last Admin: 07/06/17 12:50 Dose: 5 ml Saliva Substitute (First Magic Mouthwash) 5 ml PO QID [facility] Last Admin: 07/06/17 12:50 Dose: 5 ml Senna/Docusate Sodium (Senokot S 50 Mg-8.6 Mg) 2 tab PO HS [facility] Last Admin: 07/05/17 21:33 Dose: 2 tab Sertraline HCl (Zoloft) 50 mg PO DAILY [facility] Last Admin: 07/06/17 08:40 Dose: 50 mg Sitagliptin Phosphate (Januvia) 50 mg PO DAILY [facility] Last Admin: 07/06/17 08:41 Dose: 50 mg Tramadol HCl (Ultram) 50 mg PO Q6 PRN PRN Reason: Pain, severe (8-10) - Labs Labs: 07/04/17 05:05 07/06/17 05:25 PT 12.0 Seconds (9.8-13.1) 07/02/17 06:26 INR 1.1 (0.9-1.2) 07/02/17 06:26 APTT 24.7 Seconds (25.6-37.1) L 07/02/17 06:26 - Head Exam Head Exam: ATRAUMATIC, NORMAL INSPECTION, NORMOCEPHALIC - Eye Exam Eye Exam: EOMI, Normal appearance, PERRL Pupil Exam: NORMAL ACCOMODATION - ENT Exam ENT Exam: Mucous Membranes Moist, Normal Exam - Neck Exam Neck Exam: Normal Inspection - Respiratory Exam Respiratory Exam: NORMAL BREATHING PATTERN - Cardiovascular Exam Cardiovascular Exam: REGULAR RHYTHM - GI/Abdominal Exam GI & Abdominal Exam: Soft, Normal Bowel Sounds - Rectal Exam Rectal Exam: NORMAL INSPECTION - Exam External exam: NORMAL EXTERNAL EXAM - Extremities Exam Extremities Exam: Normal Capillary Refill, Normal Inspection - Back Exam Back Exam: NORMAL INSPECTION - Neurological Exam Neurological Exam: Alert, Awake Neuro motor strength exam: Left Upper Extremity: 2/1, Right Upper Extremity: 4, Left Lower Extremity: 3, Right Lower Extremity: 4 - Psychiatric Exam Psychiatric exam: Normal Affect, Normal Mood - Skin Skin Exam: Dry, Intact Assessment and Plan (1) Closed fracture of left distal radius Status: Acute (2) Displaced fracture of left ulna styloid process, initial encounter for closed fracture Status: Acute (3) Episode of generalized weakness Status: Acute (4) Hyperglycemia Status: Acute (5) Hypertension Status: Acute (6) Traumatic subarachnoid hemorrhage Assessment & Plan: plan for physical, occupational rec therapy Dc for 07/15 team conference Status: Acute
--- NOTE | 2017-07-06 16:30 | CP.PCM.PN ---
Subjective - Date & Time of Evaluation Date of Evaluation: 07/06/17 Time of Evaluation: 16:26 - Subjective Subjective: see below Objective - Vital Signs/Intake and Output Vital Signs (last 24 hours): Temp Pulse Resp BP Pulse Ox 98.1 F 82 20 142/76 94 L 07/06/17 10:52 07/06/17 10:52 07/06/17 10:52 07/06/17 10:52 07/06/17 10:00 Intake and Output: 07/06/17 07/06/17 06:59 18:59 Intake Total 300 Balance 300 - Medications Medications: Current Medications Acetaminophen (Tylenol 325mg Tab) 650 mg PO Q6 PRN PRN Reason: Pain, moderate (4-7) Atorvastatin Calcium (Lipitor) 40 mg PO HS [facility] Last Admin: 07/05/17 21:32 Dose: 40 mg Calcium/Vitamin D (Oyster Shell Calcium/Vitamin D 500 Mg-200 Iu) 1 tab PO BIDWM [facility] Last Admin: 07/06/17 08:40 Dose: 1 tab Cholecalciferol (Vitamin D) 2,000 iu PO DAILY [facility] Last Admin: 07/06/17 08:39 Dose: 2,000 iu Dextrose (Dextrose 50% Inj) 0 ml IV STAT PRN; Protocol PRN Reason: Hypoglycemia Protocol Dextrose (Glutose 15) 0 gm PO ONCE PRN; Protocol PRN Reason: Hypoglycemia Protocol Dipyridamole/Aspirin (Aggrenox 25-200 Mg) 1 ea PO BID [facility] Last Admin: 07/06/17 08:39 Dose: 1 ea Enoxaparin Sodium (Lovenox) 30 mg SC DAILY [facility] PRN Reason: Protocol Last Admin: 07/06/17 08:40 Dose: 30 mg Glucagon (Glucagen Diagnostic Kit) 0 mg IM STAT PRN; Protocol PRN Reason: Hypoglycemia Protocol Insulin Detemir (Levemir) 5 units SC HS [facility] Insulin Human Regular (Humulin R) 0 units SC BIDWM [facility] PRN Reason: Protocol Ketorolac Tromethamine (Toradol) 30 mg IVP Q24H [facility] Last Admin: 07/06/17 14:13 Dose: Not Given Morphine Sulfate (Morphine Immediate Release Tab) 15 mg PO BID [facility] Last Admin: 07/06/17 08:38 Dose: 15 mg Multivitamins/Minerals (Therapeutic-M Tab) 1 tab PO DAILY [facility] Last Admin: 07/06/17 08:41 Dose: 1 tab Nystatin (Nystatin Oral Susp) 5 ml PO QID [facility] Last Admin: 07/06/17 12:50 Dose: 5 ml Saliva Substitute (First Magic Mouthwash) 5 ml PO QID [facility] Last Admin: 07/06/17 12:50 Dose: 5 ml Senna/Docusate Sodium (Senokot S 50 Mg-8.6 Mg) 2 tab PO HS [facility] Last Admin: 07/05/17 21:33 Dose: 2 tab Sertraline HCl (Zoloft) 50 mg PO DAILY [facility] Last Admin: 07/06/17 08:40 Dose: 50 mg Sitagliptin Phosphate (Januvia) 50 mg PO DAILY [facility] Last Admin: 07/06/17 08:41 Dose: 50 mg Tramadol HCl (Ultram) 50 mg PO Q6 PRN PRN Reason: Pain, severe (8-10) - Labs Labs: 07/04/17 05:05 07/06/17 05:25 PT 12.0 Seconds (9.8-13.1) 07/02/17 06:26 INR 1.1 (0.9-1.2) 07/02/17 06:26 APTT 24.7 Seconds (25.6-37.1) L 07/02/17 06:26 Assessment and Plan - Assessment and Plan (Free Text) Assessment: ENT Consult CC mouth pain HPI 86 y/o female who c/o one week of pain on the roof of her mouth s/p OR for orthopedic procedure last week. She feels that something scraped the roof of her mouth during the procedure. She notes that it is improving. Hx was obtained from the patient through video translation service. PMH DM, HTN, CVA Allergies NKDA Exam awake, alert, comfortable oc/op clear; soft palate and posterior pharynx normal; no swelling; there is a torus palatinus (normal bony protuberance of the central hard palate) with mucosal abrasion that is tender; mucosa otherwise normal; this is what she notes has been hurting her face symmetric no faical tenderness Impression traumatic abrasion of torus palatinus, likely from instrumentation of the mouth during OR procedure (intubation, etc.) improving Recommend i advise that the patient see me as an o/p upon discharge to ensure complete resolution of her problem. all recommendations made through video dipper machine operator. male family member also at bedside.
[2017-07-06] MEDS: Insulin Detemir 100 Units/ml Inj SC SCH ×2 (16:45→21:41)
[2017-07-06] MEDS: Docusate-Senna 50 mg-8.6 mg Tab PO SCH (21:40)
[2017-07-07 06:25] LABS: MEAN CELL VOLUME 99.4 fl (81.0-99.0); MEAN CORPUSCULAR HEMOGLOBIN 33.1 pg (27.0-31.0); MEAN CORPUSCULAR HGB CONC 33.3 g/dL (33.0-37.0); RED CELL DISTRIBUTION WIDTH 12.5 % (11.5-14.5); WHITE BLOOD COUNT 6.8 K/uL (4.8-10.8)
[2017-07-07 06:49] LABS: CALCIUM 8.7 mg/dL (8.4-10.2)
[2017-07-07] MEDS: Aspirin-Dipyridamole 200-25 mg ER Cap PO SCH ×2 (08:48→17:06)
[2017-07-07] MEDS: Multivitamin With Minerals Tab PO SCH (08:48)
[2017-07-07] MEDS: Cholecalciferol 1,000 INTLU TAB PO SCH (08:48)
[2017-07-07] MEDS: Mag&Al/Simet/Diphen/Lido 237 ML KIT PO SCH ×4 (08:48→21:26)
[2017-07-07] MEDS: Enoxaparin 30 mg Syringe SC SCH (08:49)
[2017-07-07] MEDS: Morphine 15 mg Immediate Release Tab PO SCH ×2 (08:49→17:05)
[2017-07-07] MEDS: Nystatin 100,000 Units/ml Oral Susp 5 ml UD PO SCH ×4 (08:49→21:27)
[2017-07-07] MEDS: Calcium-Vit D 500 mg-200 Units Tab UD PO SCH ×2 (08:49→17:07)
[2017-07-07] MEDS: Insulin Regular 100 units/ml SC SCH ×2 (08:50→17:04)
--- NOTE | 2017-07-07 08:51 | CP.PCM.PN ---
Subjective - Date & Time of Evaluation Date of Evaluation: 07/07/17 Time of Evaluation: 08:48 - Subjective Subjective: Patient still complaining of wrist pain. Denies numbness/tingling. Objective - Vital Signs/Intake and Output Vital Signs (last 24 hours): Temp Pulse Resp BP Pulse Ox 98.4 F 72 20 110/66 97 07/06/17 19:59 07/06/17 19:59 07/06/17 19:59 07/06/17 19:59 07/06/17 19:59 - Medications Medications: Current Medications Acetaminophen (Tylenol 325mg Tab) 650 mg PO Q6 PRN PRN Reason: Pain, moderate (4-7) Atorvastatin Calcium (Lipitor) 40 mg PO HS [facility] Calcium/Vitamin D (Oyster Shell Calcium/Vitamin D 500 Mg-200 Iu) 1 tab PO BIDWM [facility] Last Admin: 07/06/17 16:43 Dose: 1 tab Cholecalciferol (Vitamin D) 2,000 iu PO DAILY [facility] Last Admin: 07/06/17 08:39 Dose: 2,000 iu Dextrose (Dextrose 50% Inj) 0 ml IV STAT PRN; Protocol PRN Reason: Hypoglycemia Protocol Dextrose (Glutose 15) 0 gm PO ONCE PRN; Protocol PRN Reason: Hypoglycemia Protocol Dipyridamole/Aspirin (Aggrenox 25-200 Mg) 1 ea PO BID [facility] Last Admin: 07/06/17 16:44 Dose: 1 ea Enoxaparin Sodium (Lovenox) 30 mg SC DAILY [facility] PRN Reason: Protocol Last Admin: 07/06/17 08:40 Dose: 30 mg Glucagon (Glucagen Diagnostic Kit) 0 mg IM STAT PRN; Protocol PRN Reason: Hypoglycemia Protocol Insulin Detemir (Levemir) 5 units SC [facility] Last Admin: 07/06/17 21:41 Dose: 5 units Insulin Human Regular (Humulin R) 0 units SC BIDWM [facility] PRN Reason: Protocol Last Admin: 07/06/17 16:45 Dose: Not Given Ketorolac Tromethamine (Toradol) 30 mg IVP Q24H [facility] Last Admin: 07/06/17 14:13 Dose: Not Given Morphine Sulfate (Morphine Immediate Release Tab) 15 mg PO BID [facility] Last Admin: 07/06/17 16:42 Dose: 15 mg Multivitamins/Minerals (Therapeutic-M Tab) 1 tab PO DAILY [facility] Last Admin: 07/06/17 08:41 Dose: 1 tab Nystatin (Nystatin Oral Susp) 5 ml PO QID [facility] Last Admin: 07/06/17 21:40 Dose: 5 ml Saliva Substitute (First Magic Mouthwash) 5 ml PO QID [facility] Last Admin: 07/06/17 21:37 Dose: 5 ml Senna/Docusate Sodium (Senokot S 50 Mg-8.6 Mg) 2 tab PO HS [facility] Last Admin: 07/06/17 21:40 Dose: 2 tab Sertraline HCl (Zoloft) 50 mg PO DAILY [facility] Last Admin: 07/06/17 08:40 Dose: 50 mg Sitagliptin Phosphate (Januvia) 50 mg PO DAILY [facility] Last Admin: 07/06/17 08:41 Dose: 50 mg Tramadol HCl (Ultram) 50 mg PO Q6 PRN PRN Reason: Pain, severe (8-10) - Labs Labs: 07/07/17 05:25 07/07/17 05:25 PT 12.0 Seconds (9.8-13.1) 07/02/17 06:26 INR 1.1 (0.9-1.2) 07/02/17 06:26 APTT 24.7 Seconds (25.6-37.1) L 07/02/17 06:26 - Extremities Exam Additional comments: Left wrist: splint changed. Incision intact, no erythema, dry. Sensation intact , +radial pulse, swelling much improved from last exam. +ROM fingers, improving. Assessment and Plan (1) Closed fracture of left distal radius Assessment & Plan: POD# 7 s/p left wrist ORIF -splint/dressing change -cont elevation -splint keep dry and intact -orthopedically stable for d/c -d/w DR. Alcantara, agrees with above Status: Acute (2) Displaced fracture of left ulna styloid process, initial encounter for closed fracture Status: Acute
--- NOTE | 2017-07-07 09:14 | CP.PCM.PN ---
Subjective - Date & Time of Evaluation Date of Evaluation: 07/07/17 Time of Evaluation: 09:14 - Subjective Subjective: 86 y/o female seen this morning in acute rehab, resting comfortably in bedside chair. Pt says she is feeling better today and the mouth pain is decreasing. Pt says she has been using the mouthwash and thinks it is helping. Pt was able to tolerate a normal breakfast this morning without difficulty. Pt says she is noticing less swelling in the fingers of her left hand and is able to move them more. Pt denies F/C/N/V/CP/SOB. Pt denies abdominal pain, diarrhea or constipation. Pt denies headache, dizziness or lightheadedness. Objective - Vital Signs/Intake and Output Vital Signs (last 24 hours): Temp Pulse Resp BP Pulse Ox 98.3 F 80 22 135/64 97 07/07/17 09:06 07/07/17 09:06 07/07/17 09:06 07/07/17 09:06 07/07/17 09:06 - Medications Medications: Current Medications Acetaminophen (Tylenol 325mg Tab) 650 mg PO Q6 PRN PRN Reason: Pain, moderate (4-7) Atorvastatin Calcium (Lipitor) 40 mg PO HS [facility] Calcium/Vitamin D (Oyster Shell Calcium/Vitamin D 500 Mg-200 Iu) 1 tab PO BIDWM [facility] Last Admin: 07/07/17 08:49 Dose: 1 tab Cholecalciferol (Vitamin D) 2,000 iu PO DAILY [facility] Last Admin: 07/07/17 08:48 Dose: 2,000 iu Dextrose (Dextrose 50% Inj) 0 ml IV STAT PRN; Protocol PRN Reason: Hypoglycemia Protocol Dextrose (Glutose 15) 0 gm PO ONCE PRN; Protocol PRN Reason: Hypoglycemia Protocol Dipyridamole/Aspirin (Aggrenox 25-200 Mg) 1 ea PO BID [facility] Last Admin: 07/07/17 08:48 Dose: 1 ea Enoxaparin Sodium (Lovenox) 30 mg SC DAILY [facility] PRN Reason: Protocol Last Admin: 07/07/17 08:49 Dose: 30 mg Glucagon (Glucagen Diagnostic Kit) 0 mg IM STAT PRN; Protocol PRN Reason: Hypoglycemia Protocol Insulin Detemir (Levemir) 5 units SC [facility] Last Admin: 07/06/17 21:41 Dose: 5 units Insulin Human Regular (Humulin R) 0 units SC BIDWM [facility] PRN Reason: Protocol Last Admin: 07/07/17 08:50 Dose: Not Given Ketorolac Tromethamine (Toradol) 30 mg IVP Q24H [facility] Last Admin: 07/06/17 14:13 Dose: Not Given Morphine Sulfate (Morphine Immediate Release Tab) 15 mg PO BID [facility] Last Admin: 07/07/17 08:49 Dose: 15 mg Multivitamins/Minerals (Therapeutic-M Tab) 1 tab PO DAILY [facility] Last Admin: 07/07/17 08:48 Dose: 1 tab Nystatin (Nystatin Oral Susp) 5 ml PO QID [facility] Last Admin: 07/07/17 08:49 Dose: 5 ml Saliva Substitute (First Magic Mouthwash) 5 ml PO QID [facility] Last Admin: 07/07/17 08:48 Dose: 5 ml Senna/Docusate Sodium (Senokot S 50 Mg-8.6 Mg) 2 tab PO HS [facility] Last Admin: 07/06/17 21:40 Dose: 2 tab Sertraline HCl (Zoloft) 50 mg PO DAILY [facility] Last Admin: 07/07/17 08:48 Dose: 50 mg Sitagliptin Phosphate (Januvia) 50 mg PO DAILY [facility] Last Admin: 07/07/17 08:48 Dose: 50 mg Tramadol HCl (Ultram) 50 mg PO Q6 PRN PRN Reason: Pain, severe (8-10) - Labs Labs: 07/07/17 05:25 07/07/17 05:25 PT 12.0 Seconds (9.8-13.1) 07/02/17 06:26 INR 1.1 (0.9-1.2) 07/02/17 06:26 APTT 24.7 Seconds (25.6-37.1) L 07/02/17 06:26 - Constitutional Appears: Well, Non-toxic, No Acute Distress - Head Exam Head Exam: NORMOCEPHALIC Additional comments: s/p head trauma, no gross deformity mild upper lip ecchymosis, improving - Eye Exam Eye Exam: Normal appearance, PERRL - ENT Exam Additional comments: Mucosal irritation noted to palate. No drainage, mildly erythematous Mild thrush noted to tongue - Respiratory Exam Respiratory Exam: Clear to Ausculation Bilateral, NORMAL BREATHING PATTERN. absent: Rales, Rhonchi, Wheezes - Cardiovascular Exam Cardiovascular Exam: REGULAR RHYTHM, +S1, +S2. absent: JVD - GI/Abdominal Exam GI & Abdominal Exam: Soft, Normal Bowel Sounds. absent: Tenderness - Rectal Exam Rectal Exam: Deferred - Extremities Exam Extremities Exam: Normal Capillary Refill, Normal Inspection. absent: Calf Tenderness Additional comments: left forearm in new volar splint, changed earlier today by orthopedic surgery pt is able to wiggle fingers without difficulty mild digit swelling x 5, decreasing non tender upon active flexion and extension of digits minimal tenderness noted to passive flexion and extension of digits - Neurological Exam Neurological Exam: Alert, Awake, Oriented x3 - Psychiatric Exam Psychiatric exam: Normal Affect, Normal Mood - Skin Skin Exam: Dry, Intact Assessment and Plan - Assessment and Plan (Free Text) Assessment: 1) Left Distal Ulna/Radius Fracture -on admission, CT of left upper extremity showed acute comminuted intraarticular fracture of distal radius with significant impaction of fracture fragments -Dr. Alcantara on consult -8 days s/p ORIF of L comminuted wrist fracture -pt in volar splint to LUE, changed today -to be left clean, dry and intact -pain control with Morphine IR tab [facility] -c/w Tylenol and Tramadol prn pain -c/w PT -per ortho, pt is orthopedically stable at this time and will f/u with Dr. Alcantara in his office within 1 week of discharge 2) Fall with traumatic subarachnoid hemorrhage -possibly secondary to seizure/arrythmia/ETOH -s/p 2 L NS in ED due to elevated total creatinine kinase (total VA=994) -Prior ECHO in 09/2016: normal LVEF, normal systolic function -seen and evaluated by cardiology Dr. Alcantara -Repeat ECHO showed normal LVEF, normal LV size and wall thickness, mild dilation of L atrium, mild tricuspid regurgitation -As per neurology Dr. Estrada, ordered brain MRI w/o contrast, CTA head/neck and EEGs ordered -EEG showed no focal slowing, no seizure-like activity -CTA head/neck not done due to pt's kidney function (GFR 43) -Repeat CT head showed no interval change, no acute intracranial abnormalities -c/w PT/OT -c/w home meds -Dr. Hayes consulted for neurosurgery, cleared pt for D/C from neurosurgery standpoint -Repeat CT head showed no interval change, no acute intracranial abnormalities -Aggrenox resumed per neuro -continue PT/OT in acute rehab 3) Hyponatremia -Na+ WNL at 133 -Serum osmolality elevated -continue IV fluids in rehab 4) IDDM2 -stable at this time -c/w home meds, however Regular Insulin substituted for Humalog 2/2 to shortage -HgA1C: 7.7 -insulin coverage scale -monitor BS 5) Throat lesion -noted by pt since operation, pain decreasing -continue Nystatin oral suspension, Magic Mouthwash qid -ENT Dr. Zayas on consult, recommends follow up outpatient for resolution of problem 6) Hypertension -currently controlled without meds, remains stable -monitor closely as low BP could be due to decreased food/drink intake -will adjust or add home meds as needed 7) Chronic Kidney Disease -Stage 3B -improving as when compared to 01/2017 values -2L IV NS hydration given on initial admission in ED -BUN/Cr: 21/1.1 -Est GFR: 47 -continue to monitor kidney function 8) Constipation -last BM yesterday -continue Sennokot 9) Hyperlipidemia -c/w Atorvastatin -last lipid panel on previous admission WNL -new lipid panel ordered today - values WNL, continue statin therapy 10) Insomnia -C/w Zoloft 50mg PO daily 11) Diet -c/w heart healthy diet 12) DVT Prophylaxis -SCDs -c/w Aggrenox, Lovenox 13) Code Status -Full Code
[2017-07-07] MEDS: Docusate-Senna 50 mg-8.6 mg Tab PO SCH (21:27)
[2017-07-07] MEDS: Insulin Detemir 100 Units/ml Inj SC SCH (22:00)
[2017-07-08] MEDS: Aspirin-Dipyridamole 200-25 mg ER Cap PO SCH ×2 (08:30→17:19)
[2017-07-08] MEDS: Nystatin 100,000 Units/ml Oral Susp 5 ml UD PO SCH ×4 (08:31→21:38)
[2017-07-08] MEDS: Cholecalciferol 1,000 INTLU TAB PO SCH (08:31)
[2017-07-08] MEDS: Calcium-Vit D 500 mg-200 Units Tab UD PO SCH ×2 (08:31→18:06)
[2017-07-08] MEDS: Multivitamin With Minerals Tab PO SCH (08:31)
[2017-07-08] MEDS: Enoxaparin 30 mg Syringe SC SCH (08:32)
[2017-07-08] MEDS: Insulin Regular 100 units/ml SC SCH ×2 (08:33→17:19)
[2017-07-08] MEDS: Morphine 15 mg Immediate Release Tab PO SCH (08:43)
[2017-07-08] MEDS: Mag&Al/Simet/Diphen/Lido 237 ML KIT PO SCH ×4 (09:00→22:22)
--- NOTE | 2017-07-08 09:31 | CP.PCM.PN ---
Subjective - Date & Time of Evaluation Date of Evaluation: 07/08/17 Time of Evaluation: 09:29 - Subjective Subjective: 86 y/o female seen in acute rehab this morning prior to therapy session. Pt is in good spirits and admits to decreased pain in her mouth and her wrist. Pt is able to wiggle her fingers and feels optimistic about therapy. Pt denies numbness, tingling or burning in the left hand or wrist. Pt denies F/C/N/V/CP/ SOB. Objective - Vital Signs/Intake and Output Vital Signs (last 24 hours): Temp Pulse Resp BP Pulse Ox 97.7 F 66 18 122/55 L 94 L 07/08/17 08:22 07/08/17 08:22 07/08/17 08:22 07/08/17 08:22 07/08/17 08:22 - Medications Medications: Current Medications Acetaminophen (Tylenol 325mg Tab) 650 mg PO Q6 PRN PRN Reason: Pain, moderate (4-7) Atorvastatin Calcium (Lipitor) 40 mg PO HS [facility] Last Admin: 07/07/17 21:27 Dose: 40 mg Calcium/Vitamin D (Oyster Shell Calcium/Vitamin D 500 Mg-200 Iu) 1 tab PO BIDWM [facility] Last Admin: 07/08/17 08:31 Dose: 1 tab Cholecalciferol (Vitamin D) 2,000 iu PO DAILY [facility] Last Admin: 07/08/17 08:31 Dose: 2,000 intlu Dextrose (Dextrose 50% Inj) 0 ml IV STAT PRN; Protocol PRN Reason: Hypoglycemia Protocol Dextrose (Glutose 15) 0 gm PO ONCE PRN; Protocol PRN Reason: Hypoglycemia Protocol Dipyridamole/Aspirin (Aggrenox 25-200 Mg) 1 ea PO BID [facility] Last Admin: 07/08/17 08:30 Dose: 1 ea Enoxaparin Sodium (Lovenox) 30 mg SC DAILY [facility] PRN Reason: Protocol Last Admin: 07/08/17 08:32 Dose: 30 mg Glucagon (Glucagen Diagnostic Kit) 0 mg IM STAT PRN; Protocol PRN Reason: Hypoglycemia Protocol Insulin Detemir (Levemir) 5 units SC HS [facility] Last Admin: 07/07/17 22:00 Dose: 5 units Insulin Human Regular (Humulin R) 0 units SC BIDWM [facility] PRN Reason: Protocol Last Admin: 07/08/17 08:33 Dose: Not Given Morphine Sulfate (Morphine Immediate Release Tab) 15 mg PO BID [facility] Last Admin: 07/08/17 08:43 Dose: 15 mg Multivitamins/Minerals (Therapeutic-M Tab) 1 tab PO DAILY [facility] Last Admin: 07/08/17 08:31 Dose: 1 tab Nystatin (Nystatin Oral Susp) 5 ml PO QID [facility] Last Admin: 07/08/17 08:31 Dose: 5 ml Saliva Substitute (First Magic Mouthwash) 5 ml PO QID [facility] Last Admin: 07/07/17 21:26 Dose: 5 ml Senna/Docusate Sodium (Senokot S 50 Mg-8.6 Mg) 2 tab PO HS [facility] Last Admin: 07/07/17 21:27 Dose: 2 tab Sertraline HCl (Zoloft) 50 mg PO DAILY [facility] Last Admin: 07/08/17 08:31 Dose: 50 mg Sitagliptin Phosphate (Januvia) 50 mg PO DAILY [facility] Last Admin: 07/08/17 08:31 Dose: 50 mg Tramadol HCl (Ultram) 50 mg PO Q6 PRN PRN Reason: Pain, severe (8-10) - Labs Labs: 07/07/17 05:25 07/07/17 05:25 PT 12.0 Seconds (9.8-13.1) 07/02/17 06:26 INR 1.1 (0.9-1.2) 07/02/17 06:26 APTT 24.7 Seconds (25.6-37.1) L 07/02/17 06:26 - Constitutional Appears: Well, Non-toxic, No Acute Distress - Head Exam Head Exam: NORMOCEPHALIC Additional comments: s/p head trauma with no gross deformity noted upper lip ecchymosis, minimal, improved since admission - Eye Exam Eye Exam: EOMI, Normal appearance Pupil Exam: NORMAL ACCOMODATION, PERRL - ENT Exam ENT Exam: Mucous Membranes Moist Additional comments: Mucosal irritation noted to palate. Improving, less erythematous Mild thrush noted to tongue, improving - Neck Exam Neck Exam: Full ROM, Normal Inspection. absent: Tenderness - Respiratory Exam Respiratory Exam: Clear to Ausculation Bilateral, NORMAL BREATHING PATTERN. absent: Rhonchi, Wheezes, Respiratory Distress - Cardiovascular Exam Cardiovascular Exam: REGULAR RHYTHM, +S1, +S2. absent: JVD - GI/Abdominal Exam GI & Abdominal Exam: Soft, Normal Bowel Sounds. absent: Tenderness - Rectal Exam Rectal Exam: Deferred - Extremities Exam Extremities Exam: Normal Capillary Refill, Normal Inspection. absent: Calf Tenderness, Pedal Edema Additional comments: left forearm in new volar splint, changed earlier today by orthopedic surgery pt is able to wiggle fingers without difficulty mild digit swelling x 5, decreasing non tender upon active flexion and extension of digits minimal tenderness noted to passive flexion and extension of digits - Neurological Exam Neurological Exam: Alert, Awake, Oriented x3 - Psychiatric Exam Psychiatric exam: Normal Affect, Normal Mood - Skin Skin Exam: Dry, Intact, Normal Color, Warm Assessment and Plan - Assessment and Plan (Free Text) Assessment: 1) Left Distal Ulna/Radius Fracture -9 days s/p ORIF of L comminuted wrist fracture with Dr. Alcantara -pt in volar splint to LUE - leave C/D/I -c/w Tylenol and Tramadol prn pain -c/w PT -per ortho, pt is orthopedically stable at this time and will f/u in [place] office within 1 week 2) Fall with traumatic subarachnoid hemorrhage -possibly secondary to seizure/arrythmia/ETOH -c/w home meds -Dr. Hayes consulted for neurosurgery, cleared pt for D/C from neurosurgery standpoint -Repeat CT head showed no interval change, no acute intracranial abnormalities -Aggrenox resumed per neuro -c/w PT/OT in acute rehab -plan for D/C home once stable for ADLs per rehab 3) Hyponatremia secondary to mild dehydration -Na+ WNL at 133 -Serum osmolality elevated -continue IV fluids in rehab 4) IDDM2 -stable at this time -Home meds decreased secondary to over control of blood sugar levels, likely due to poor diet -HgA1C: 7.7 -insulin coverage scale -monitor BS 5) Throat lesion causing decreased PO intake -pain decreasing, PO intake increasing -continue Nystatin oral suspension, Magic Mouthwash qid -ENT Dr. Zayas on consult, recommends outpatient F/U 6) Hypertension -currently controlled w/o meds, remains stable -monitor closely as low BP could be due to decreased food/drink intake -will adjust or add home meds as needed 7) Chronic Kidney Disease -Stage 3B -improving as when compared to 01/2017 values -continue to monitor kidney function 8) Constipation -last BM yesterday -continue Sennokot 9) Hyperlipidemia -c/w Atorvastatin -last lipid panel on previous admission WNL -new lipid panel ordered today - values WNL, continue statin therapy 10) Insomnia -C/w Zoloft 50mg PO daily 11) Diet -c/w heart healthy diet 12) DVT Prophylaxis -SCDs -c/w Aggrenox, Lovenox 13) Code Status -Full Code
--- NOTE | 2017-07-08 11:09 | CP.PCM.CON ---
History of Present Illness - History of Present Illness History of Present Illness: Pt is an 86 year old female admitted to the rehab unit and referred to the food writer for evaluation. Pt reported a "fall in her home, fx, and past CVA, HTN, DM. See medical record for complete medical history and medications. Social History: pt lives alone. She has four daughters ([place], [place], [place]). Pt reported positive relationships with her family- children and grandchildren. She is helped by them and her homemaker as well. ed/voc: pt born and raised in [place], 4th grade education. Pt in the [place]- [place] years. Pt did factory work. Pt denied a psych history, pt denied a history of alc/sub abuse. Pt reported current sadness due to her medical issues. She spoke of her desire for recovery and return home to family and life circumstances. MSE: Pt alert, oriented to year and month, affect constricted, mood dysphoric, no si no hi ideation. Cognitive strategies introduced to reduce distress. Dx Adjustment dx with depression plan: continued supportive therapy Past Patient History - Past Medical History & Family History Past Medical History?: Yes - Past Social History Smoking Status: Never Smoked - CARDIAC Hx Hypertension: Yes - PULMONARY Hx Respiratory Disorders: No - NEUROLOGICAL HX Cerebrovascular Accident: Yes - HEENT Hx HEENT Problems: Yes Hx Cataracts: Yes (had surgery) Other/Comment: wear eyeglasses for reading and watching television but lost it per patient as interpreted by belt knife feeder - RENAL Hx Chronic Kidney Disease: Yes Hx Dialysis: No - ENDOCRINE/METABOLIC Hx Diabetes Mellitus Type 2: Yes - HEMATOLOGICAL/ONCOLOGICAL Hx Blood Disorders: No Hx AIDS: No Hx Human Immunodeficiency Virus (HIV): No - INTEGUMENTARY Hx Dermatological Problems: No - MUSCULOSKELETAL/RHEUMATOLOGICAL Hx Falls: Yes (x2) - GASTROINTESTINAL Hx Gastrointestinal Disorders: No - GENITOURINARY/GYNECOLOGICAL Hx Genitourinary Disorders: No - PSYCHIATRIC Hx Psychophysiologic Disorder: Yes Hx Depression: Yes Hx Substance Use: No Other/Comment: insomnia - SURGICAL HISTORY Hx Surgeries: Yes Hx Cataract Extraction: Yes Hx Herniorrhaphy: Yes (Abdominal hernia repair) Hx Hysterectomy: Yes - ANESTHESIA Hx Anesthesia: Yes Hx Anesthesia Reactions: No Hx Malignant Hyperthermia: No Meds Allergies/Adverse Reactions: Allergies Allergy/AdvReac Type Severity Reaction Status Date / Time No Known Allergies Allergy Verified 06/30/17 18:32 - Medications Medications: Current Medications Acetaminophen (Tylenol 325mg Tab) 650 mg PO Q6 PRN PRN Reason: Pain, Mild (1-3) Atorvastatin Calcium (Lipitor) 40 mg PO HS [facility] Last Admin: 07/07/17 21:27 Dose: 40 mg Calcium/Vitamin D (Oyster Shell Calcium/Vitamin D 500 Mg-200 Iu) 1 tab PO BIDWM [facility] Last Admin: 07/08/17 08:31 Dose: 1 tab Cholecalciferol (Vitamin D) 2,000 iu PO DAILY [facility] Last Admin: 07/08/17 08:31 Dose: 2,000 intlu Dextrose (Dextrose 50% Inj) 0 ml IV STAT PRN; Protocol PRN Reason: Hypoglycemia Protocol Dextrose (Glutose 15) 0 gm PO ONCE PRN; Protocol PRN Reason: Hypoglycemia Protocol Dipyridamole/Aspirin (Aggrenox 25-200 Mg) 1 ea PO BID [facility] Last Admin: 07/08/17 08:30 Dose: 1 ea Enoxaparin Sodium (Lovenox) 30 mg SC DAILY [facility] PRN Reason: Protocol Glucagon (Glucagen Diagnostic Kit) 0 mg IM STAT PRN; Protocol PRN Reason: Hypoglycemia Protocol Insulin Human Regular (Humulin R) 0 units SC BIDWM [facility] PRN Reason: Protocol Last Admin: 07/08/17 08:33 Dose: Not Given Multivitamins/Minerals (Therapeutic-M Tab) 1 tab PO DAILY [facility] Last Admin: 07/08/17 08:31 Dose: 1 tab Nystatin (Nystatin Oral Susp) 5 ml PO QID [facility] Last Admin: 07/08/17 08:31 Dose: 5 ml Saliva Substitute (First Magic Mouthwash) 5 ml PO QID [facility] Last Admin: 07/07/17 21:26 Dose: 5 ml Senna/Docusate Sodium (Senokot S 50 Mg-8.6 Mg) 2 tab PO HS [facility] Last Admin: 07/07/17 21:27 Dose: 2 tab Sertraline HCl (Zoloft) 50 mg PO DAILY [facility] Last Admin: 07/08/17 08:31 Dose: 50 mg Sitagliptin Phosphate (Januvia) 50 mg PO DAILY [facility] Last Admin: 07/08/17 08:31 Dose: 50 mg Tramadol HCl (Ultram) 50 mg PO Q6 PRN PRN Reason: Pain, moderate (4-7) Results - Vital Signs Recent Vital Signs: Last Vital Signs Temp 97.7 F 07/08/17 08:22 Pulse 66 07/08/17 08:22 Resp 18 07/08/17 08:22 BP 122/55 L 07/08/17 08:22 Pulse Ox 94 L 07/08/17 08:22 - Labs Result Diagrams: 07/07/17 05:25 07/07/17 05:25 Labs: Laboratory Results - last 24 hr 07/07/17 07/08/17 16:40 05:47 POC Glucose (mg/dL) 158 H 115 H
--- NOTE | 2017-07-08 13:42 | PN ---
DATE: PHYSIATRY PROGRESS NOTE SUBJECTIVE: The patient is feeling fine. No acute complaints noted at present. PHYSICAL EXAMINATION: VITAL SIGNS: Stable. NECK: Supple. CHEST: Symmetrical. HEART: Sounds S1 and S2. ABDOMEN: Abdominal area is benign. EXTREMITIES: No clubbing, cyanosis or edema. IMPRESSION: Traumatic subarachnoid hemorrhage, cerebrovascular accident, hypertension, diabetes. PLAN: Plan for the patient physical therapy, occupational therapy for range of motion strengthening, transfers, ambulation and gait training. Monitor skin and pain management. Uzair Mcgregor MD
[2017-07-08] MEDS: Docusate-Senna 50 mg-8.6 mg Tab PO SCH (21:39)
[2017-07-09] MEDS: Calcium-Vit D 500 mg-200 Units Tab UD PO SCH ×2 (08:00→16:47)
[2017-07-09] MEDS: Insulin Regular 100 units/ml SC SCH ×3 (08:00→17:00)
[2017-07-09] MEDS: Enoxaparin 30 mg Syringe SC SCH (09:36)
[2017-07-09] MEDS: Aspirin-Dipyridamole 200-25 mg ER Cap PO SCH ×2 (09:36→16:46)
[2017-07-09] MEDS: Mag&Al/Simet/Diphen/Lido 237 ML KIT PO SCH ×4 (09:36→21:57)
[2017-07-09] MEDS: Nystatin 100,000 Units/ml Oral Susp 5 ml UD PO SCH ×4 (09:37→21:07)
[2017-07-09] MEDS: Multivitamin With Minerals Tab PO SCH (09:38)
[2017-07-09] MEDS: Cholecalciferol 1,000 INTLU TAB PO SCH (09:39)
[2017-07-09] MEDS: Docusate-Senna 50 mg-8.6 mg Tab PO SCH (21:05)
[2017-07-10] MEDS: Insulin Regular 100 units/ml SC SCH ×2 (07:01→17:46)
[2017-07-10] MEDS: Enoxaparin 30 mg Syringe SC SCH (08:54)
[2017-07-10] MEDS: Nystatin 100,000 Units/ml Oral Susp 5 ml UD PO SCH ×4 (08:54→21:08)
[2017-07-10] MEDS: Cholecalciferol 1,000 INTLU TAB PO SCH (08:55)
[2017-07-10] MEDS: Mag&Al/Simet/Diphen/Lido 237 ML KIT PO SCH ×4 (08:55→21:07)
[2017-07-10] MEDS: Aspirin-Dipyridamole 200-25 mg ER Cap PO SCH ×2 (08:55→17:19)
[2017-07-10] MEDS: Calcium-Vit D 500 mg-200 Units Tab UD PO SCH ×2 (08:56→17:19)
[2017-07-10] MEDS: Multivitamin With Minerals Tab PO SCH (09:09)
--- NOTE | 2017-07-10 12:09 | CP.PCM.PN ---
Subjective - Date & Time of Evaluation Date of Evaluation: 07/10/17 Time of Evaluation: 10:45 - Subjective Subjective: no acute complaints at present Objective - Vital Signs/Intake and Output Vital Signs (last 24 hours): Temp Pulse Resp BP Pulse Ox 98 F 78 20 130/70 98 07/10/17 11:43 07/10/17 10:00 07/10/17 10:00 07/10/17 11:45 07/10/17 10:00 - Medications Medications: Current Medications Acetaminophen (Tylenol 325mg Tab) 650 mg PO Q6 PRN PRN Reason: Pain, Mild (1-3) Last Admin: 07/10/17 11:43 Dose: 650 mg Atorvastatin Calcium (Lipitor) 40 mg PO HS [facility] Last Admin: 07/09/17 21:07 Dose: 40 mg Calcium/Vitamin D (Oyster Shell Calcium/Vitamin D 500 Mg-200 Iu) 1 tab PO BIDWM [facility] Last Admin: 07/10/17 08:56 Dose: 1 tab Cholecalciferol (Vitamin D) 2,000 iu PO DAILY [facility] Last Admin: 07/10/17 08:55 Dose: 2,000 intlu Dextrose (Dextrose 50% Inj) 0 ml IV STAT PRN; Protocol PRN Reason: Hypoglycemia Protocol Dextrose (Glutose 15) 0 gm PO ONCE PRN; Protocol PRN Reason: Hypoglycemia Protocol Dipyridamole/Aspirin (Aggrenox 25-200 Mg) 1 ea PO BID [facility] Last Admin: 07/10/17 08:55 Dose: 1 ea Enoxaparin Sodium (Lovenox) 30 mg SC DAILY [facility] PRN Reason: Protocol Last Admin: 07/10/17 08:54 Dose: 30 mg Glucagon (Glucagen Diagnostic Kit) 0 mg IM STAT PRN; Protocol PRN Reason: Hypoglycemia Protocol Insulin Human Regular (Humulin R) 0 units SC BIDWM [facility] PRN Reason: Protocol Last Admin: 07/10/17 07:01 Dose: Not Given Multivitamins/Minerals (Therapeutic-M Tab) 1 tab PO DAILY [facility] Last Admin: 07/10/17 09:09 Dose: 1 tab Nystatin (Nystatin Oral Susp) 5 ml PO QID [facility] Last Admin: 07/10/17 08:54 Dose: 5 ml Saliva Substitute (First Magic Mouthwash) 5 ml PO QID [facility] Last Admin: 07/10/17 08:55 Dose: 5 ml Senna/Docusate Sodium (Senokot S 50 Mg-8.6 Mg) 2 tab PO HS [facility] Last Admin: 07/09/17 21:05 Dose: Not Given Sertraline HCl (Zoloft) 50 mg PO DAILY [facility] Last Admin: 07/10/17 08:57 Dose: 50 mg Sitagliptin Phosphate (Januvia) 50 mg PO DAILY [facility] Last Admin: 07/10/17 08:54 Dose: 50 mg Tramadol HCl (Ultram) 50 mg PO Q6 PRN PRN Reason: Pain, moderate (4-7) - Labs Labs: 07/07/17 05:25 07/07/17 05:25 PT 12.0 Seconds (9.8-13.1) 07/02/17 06:26 INR 1.1 (0.9-1.2) 07/02/17 06:26 APTT 24.7 Seconds (25.6-37.1) L 07/02/17 06:26 - Head Exam Head Exam: ATRAUMATIC, NORMAL INSPECTION, NORMOCEPHALIC - Eye Exam Eye Exam: EOMI, Normal appearance, PERRL Pupil Exam: NORMAL ACCOMODATION - ENT Exam ENT Exam: Mucous Membranes Moist, Normal Exam - Neck Exam Neck Exam: Normal Inspection - Respiratory Exam Respiratory Exam: NORMAL BREATHING PATTERN - Cardiovascular Exam Cardiovascular Exam: REGULAR RHYTHM - GI/Abdominal Exam GI & Abdominal Exam: Normal Bowel Sounds - Rectal Exam Rectal Exam: NORMAL INSPECTION - Exam External exam: NORMAL EXTERNAL EXAM - Extremities Exam Extremities Exam: Normal Capillary Refill - Back Exam Back Exam: NORMAL INSPECTION - Neurological Exam Neurological Exam: Alert, Awake Neuro motor strength exam: Left Upper Extremity: 2/1, Right Upper Extremity: 4, Left Lower Extremity: 3, Right Lower Extremity: 4 - Psychiatric Exam Psychiatric exam: Normal Affect, Normal Mood - Skin Skin Exam: Dry, Intact, Normal Color Assessment and Plan (1) Closed fracture of left distal radius Assessment & Plan: plan fo rphysical, occupational therpay at present monitor left arm healing Status: Acute (2) Displaced fracture of left ulna styloid process, initial encounter for closed fracture Status: Acute (3) Episode of generalized weakness Status: Acute (4) Hyperglycemia Status: Acute (5) Hypertension Status: Acute (6) Traumatic subarachnoid hemorrhage Status: Acute
[2017-07-10 13:28] LABS: HEMATOCRIT 34.8 % (34.0-47.0); MEAN CELL VOLUME 98.9 fl (81.0-99.0); MEAN CORPUSCULAR HEMOGLOBIN 32.8 pg (27.0-31.0); MEAN CORPUSCULAR HGB CONC 33.1 g/dL (33.0-37.0); RED CELL DISTRIBUTION WIDTH 12.4 % (11.5-14.5)
[2017-07-10 13:49] LABS: ALB/GLOB RATIO 1.2 (1.0-2.1); BILIRUBIN,TOTAL 0.5 mg/dl (0.2-1.3); CALCIUM 9.5 mg/dL (8.4-10.2); POTASSIUM 4.1 MMOL/L (3.6-5.0); TOTAL PROTEIN 7.4 G/DL (6.3-8.2)
[2017-07-10] MEDS: Docusate-Senna 50 mg-8.6 mg Tab PO SCH (21:07)
[2017-07-11] MEDS: Insulin Regular 100 units/ml SC SCH ×2 (07:27→17:17)
[2017-07-11] MEDS: Mag&Al/Simet/Diphen/Lido 237 ML KIT PO SCH ×4 (08:32→21:08)
[2017-07-11] MEDS: Calcium-Vit D 500 mg-200 Units Tab UD PO SCH ×2 (08:33→17:17)
[2017-07-11] MEDS: Multivitamin With Minerals Tab PO SCH (08:33)
[2017-07-11] MEDS: Enoxaparin 30 mg Syringe SC SCH (08:34)
[2017-07-11] MEDS: Nystatin 100,000 Units/ml Oral Susp 5 ml UD PO SCH ×4 (08:34→21:09)
[2017-07-11] MEDS: Cholecalciferol 1,000 INTLU TAB PO SCH (08:34)
[2017-07-11] MEDS: Aspirin-Dipyridamole 200-25 mg ER Cap PO SCH ×2 (08:34→17:18)
--- NOTE | 2017-07-11 09:28 | CP.PCM.PN ---
Subjective - Date & Time of Evaluation Date of Evaluation: 07/11/17 Time of Evaluation: 09:26 - Subjective Subjective: 86 y/o female seen resting comfortably in bed on acute rehab floor. Pt says she is sick of the food here but her appetite is fine and she is able to eat foods better now that her mouth pain has decreased significantly. Pt says she has occasional tingling in the left wrist but minimal pain. Pt admits to significant diarrhea last night and today. Pt denies F/C/N/V/CP/SOB. Pt denies constipation or abdominal pain. Objective - Vital Signs/Intake and Output Vital Signs (last 24 hours): Temp Pulse Resp BP Pulse Ox 98.6 F 63 20 152/70 H 100 07/11/17 08:03 07/11/17 08:03 07/11/17 08:03 07/11/17 08:03 07/11/17 08:03 - Medications Medications: Current Medications Acetaminophen (Tylenol 325mg Tab) 650 mg PO Q6 PRN PRN Reason: Pain, Mild (1-3) Last Admin: 07/10/17 11:43 Dose: 650 mg Atorvastatin Calcium (Lipitor) 40 mg PO HS [facility] Last Admin: 07/10/17 21:07 Dose: 40 mg Calcium/Vitamin D (Oyster Shell Calcium/Vitamin D 500 Mg-200 Iu) 1 tab PO BIDWM [facility] Last Admin: 07/11/17 08:33 Dose: 1 tab Cholecalciferol (Vitamin D) 2,000 iu PO DAILY [facility] Last Admin: 07/11/17 08:34 Dose: 2,000 intlu Dextrose (Dextrose 50% Inj) 0 ml IV STAT PRN; Protocol PRN Reason: Hypoglycemia Protocol Dextrose (Glutose 15) 0 gm PO ONCE PRN; Protocol PRN Reason: Hypoglycemia Protocol Dipyridamole/Aspirin (Aggrenox 25-200 Mg) 1 ea PO BID [facility] Last Admin: 07/11/17 08:34 Dose: 1 ea Enoxaparin Sodium (Lovenox) 30 mg SC DAILY [facility] PRN Reason: Protocol Last Admin: 07/11/17 08:34 Dose: 30 mg Glucagon (Glucagen Diagnostic Kit) 0 mg IM STAT PRN; Protocol PRN Reason: Hypoglycemia Protocol Insulin Human Regular (Humulin R) 0 units SC BIDWM [facility] PRN Reason: Protocol Last Admin: 07/11/17 07:27 Dose: 1 unit Multivitamins/Minerals (Therapeutic-M Tab) 1 tab PO DAILY [facility] Last Admin: 07/11/17 08:33 Dose: 1 tab Nystatin (Nystatin Oral Susp) 5 ml PO QID [facility] Last Admin: 07/11/17 08:34 Dose: 5 ml Saliva Substitute (First Magic Mouthwash) 5 ml PO QID [facility] Last Admin: 07/11/17 08:32 Dose: 5 ml Senna/Docusate Sodium (Senokot S 50 Mg-8.6 Mg) 2 tab PO HS [facility] Last Admin: 07/10/17 21:07 Dose: Not Given Sertraline HCl (Zoloft) 50 mg PO DAILY [facility] Last Admin: 07/11/17 08:33 Dose: 50 mg Sitagliptin Phosphate (Januvia) 50 mg PO DAILY [facility] Last Admin: 07/11/17 08:34 Dose: 50 mg - Labs Labs: 07/10/17 13:19 07/10/17 13:19 PT 12.0 Seconds (9.8-13.1) 07/02/17 06:26 INR 1.1 (0.9-1.2) 07/02/17 06:26 APTT 24.7 Seconds (25.6-37.1) L 07/02/17 06:26 - Constitutional Appears: Well, Non-toxic, No Acute Distress - Head Exam Head Exam: NORMOCEPHALIC Additional comments: s/p head trauma with no gross deformity noted upper lip ecchymosis, minimal, improved since admission - Eye Exam Eye Exam: Normal appearance Pupil Exam: NORMAL ACCOMODATION, PERRL - ENT Exam ENT Exam: Mucous Membranes Moist Additional comments: Mild mucosal irritation noted to palate with minimal erythema Thrush to tongue, improving - Neck Exam Neck Exam: Full ROM, Normal Inspection. absent: Tenderness - Respiratory Exam Respiratory Exam: Clear to Ausculation Bilateral, NORMAL BREATHING PATTERN. absent: Wheezes, Respiratory Distress - Cardiovascular Exam Cardiovascular Exam: REGULAR RHYTHM, +S1, +S2. absent: JVD - GI/Abdominal Exam GI & Abdominal Exam: Soft, Normal Bowel Sounds - Rectal Exam Rectal Exam: Deferred - Extremities Exam Extremities Exam: Normal Capillary Refill, Normal Inspection. absent: Calf Tenderness Additional comments: left forearm in volar splint pt is able to wiggle fingers no edema noted to digits no tenderness noted on active or passive flexion and extension of digits - Neurological Exam Neurological Exam: Alert, Awake, Oriented x3 - Psychiatric Exam Psychiatric exam: Normal Affect, Normal Mood - Skin Skin Exam: Dry, Intact, Normal Color Assessment and Plan - Assessment and Plan (Free Text) Assessment: 1) Left Distal Ulna/Radius Fracture -s/p ORIF of L comminuted wrist fracture with Dr. Alcantara -pt in volar splint to LUE - to be left C/D/I -c/w Tylenol and Tramadol prn pain -c/w PT -per ortho, pt is orthopedically stable at this time and will f/u in [place] office within 1 week of discharge 2) Fall with traumatic subarachnoid hemorrhage -possibly secondary to seizure/arrythmia/ETOH -c/w home meds -Dr. 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 Zayas on consult, recommends outpatient F/U for resolution of oral lesion 6) Hypertension -resumed Chlorthalidone -monitor closely 7) Chronic Kidney Disease -Stage 3B -improving as when compared to 01/2017 values -continue to monitor kidney function 8) Diarrhea -Senokot discontinued 9) Hyperlipidemia -c/w Atorvastatin -last lipid panel on previous admission WNL -new lipid panel ordered today - values WNL, continue statin therapy 10) Insomnia -C/w Zoloft 50mg PO daily 11) Diet -c/w heart healthy diet 12) DVT Prophylaxis -SCDs -c/w Aggrenox, Lovenox 13) Code Status -Full Code
[2017-07-11 10:58] LABS: CALCIUM 9.3 mg/dL (8.4-10.2)
[2017-07-11] MEDS: Insulin Detemir 100 Units/ml Inj SC SCH (21:18)
[2017-07-12 06:20] LABS: BLOOD UREA NITROGEN 12 mg/dl (7-17); CALCIUM 9.2 mg/dL (8.4-10.2); CARBON DIOXIDE 23 mmol/L (22-30); CHLORIDE 99 mmol/L (98-107); GFR AFRICAN-AMERICAN > 60; GLUCOSE,RANDOM 143 mg/dL (65-105); SODIUM 132 mmol/l (132-148)
[2017-07-12] MEDS: Enoxaparin 30 mg Syringe SC SCH (08:47)
[2017-07-12] MEDS: Calcium-Vit D 500 mg-200 Units Tab UD PO SCH ×2 (08:48→17:14)
[2017-07-12] MEDS: Cholecalciferol 1,000 INTLU TAB PO SCH (08:48)
[2017-07-12] MEDS: Aspirin-Dipyridamole 200-25 mg ER Cap PO SCH ×2 (08:48→17:14)
[2017-07-12] MEDS: Multivitamin With Minerals Tab PO SCH (08:48)
[2017-07-12] MEDS: Mag&Al/Simet/Diphen/Lido 237 ML KIT PO SCH ×4 (08:48→21:28)
[2017-07-12] MEDS: Nystatin 100,000 Units/ml Oral Susp 5 ml UD PO SCH ×4 (08:49→21:28)
[2017-07-12] MEDS: Insulin Regular 100 units/ml SC SCH ×2 (08:50→17:15)
--- NOTE | 2017-07-12 13:57 | CP.PCM.PN ---
Subjective - Date & Time of Evaluation Date of Evaluation: 07/12/17 Time of Evaluation: 11:30 - Subjective Subjective: no acute complaints at present Objective - Vital Signs/Intake and Output Vital Signs (last 24 hours): Temp Pulse Resp BP Pulse Ox 98.1 F 78 21 153/74 H 97 07/12/17 08:46 07/12/17 08:46 07/12/17 08:46 07/12/17 08:46 07/12/17 08:46 - Medications Medications: Current Medications Acetaminophen (Tylenol 325mg Tab) 650 mg PO Q6 PRN PRN Reason: Pain, Mild (1-3) Last Admin: 07/10/17 11:43 Dose: 650 mg Atorvastatin Calcium (Lipitor) 40 mg PO HS [facility] Last Admin: 07/11/17 21:09 Dose: 40 mg Calcium/Vitamin D (Oyster Shell Calcium/Vitamin D 500 Mg-200 Iu) 1 tab PO BIDWM [facility] Last Admin: 07/12/17 08:48 Dose: 1 tab Chlorthalidone (Hygroton) 12.5 mg PO DAILY [facility] Last Admin: 07/12/17 08:47 Dose: 12.5 mg Cholecalciferol (Vitamin D) 2,000 iu PO DAILY [facility] Last Admin: 07/12/17 08:48 Dose: 2,000 intlu Dextrose (Dextrose 50% Inj) 0 ml IV STAT PRN; Protocol PRN Reason: Hypoglycemia Protocol Dextrose (Glutose 15) 0 gm PO ONCE PRN; Protocol PRN Reason: Hypoglycemia Protocol Dipyridamole/Aspirin (Aggrenox 25-200 Mg) 1 ea PO BID [facility] Last Admin: 07/12/17 08:48 Dose: 1 ea Enoxaparin Sodium (Lovenox) 30 mg SC DAILY [facility] PRN Reason: Protocol Last Admin: 07/12/17 08:47 Dose: 30 mg Glucagon (Glucagen Diagnostic Kit) 0 mg IM STAT PRN; Protocol PRN Reason: Hypoglycemia Protocol Insulin Detemir (Levemir) 5 units SC HS [facility] Last Admin: 07/11/17 21:18 Dose: 5 units Insulin Human Regular (Humulin R) 0 units SC BIDWM [facility] PRN Reason: Protocol Last Admin: 07/12/17 08:50 Dose: Not Given Multivitamins/Minerals (Therapeutic-M Tab) 1 tab PO DAILY [facility] Last Admin: 07/12/17 08:48 Dose: 1 tab Nystatin (Nystatin Oral Susp) 5 ml PO QID [facility] Last Admin: 07/12/17 13:05 Dose: 5 ml Saliva Substitute (First Magic Mouthwash) 5 ml PO QID [facility] Last Admin: 07/12/17 13:05 Dose: 5 ml Sertraline HCl (Zoloft) 50 mg PO DAILY [facility] Last Admin: 07/12/17 08:49 Dose: 50 mg Sitagliptin Phosphate (Januvia) 50 mg PO DAILY [facility] Last Admin: 07/12/17 08:48 Dose: 50 mg - Labs Labs: 07/10/17 13:19 07/12/17 05:15 PT 12.0 Seconds (9.8-13.1) 07/02/17 06:26 INR 1.1 (0.9-1.2) 07/02/17 06:26 APTT 24.7 Seconds (25.6-37.1) L 07/02/17 06:26 - Head Exam Head Exam: ATRAUMATIC, NORMAL INSPECTION, NORMOCEPHALIC - Eye Exam Eye Exam: EOMI, Normal appearance, PERRL Pupil Exam: NORMAL ACCOMODATION - ENT Exam ENT Exam: Mucous Membranes Moist, Normal Exam - Neck Exam Neck Exam: Normal Inspection - Respiratory Exam Respiratory Exam: NORMAL BREATHING PATTERN - Cardiovascular Exam Cardiovascular Exam: REGULAR RHYTHM - GI/Abdominal Exam GI & Abdominal Exam: Normal Bowel Sounds - Rectal Exam Rectal Exam: NORMAL INSPECTION - Exam External exam: NORMAL EXTERNAL EXAM - Extremities Exam Extremities Exam: Normal Capillary Refill, Normal Inspection - Back Exam Back Exam: NORMAL INSPECTION - Neurological Exam Neurological Exam: Alert, Awake Neuro motor strength exam: Left Upper Extremity: 3, Right Upper Extremity: 4, Left Lower Extremity: 4, Right Lower Extremity: 4 - Psychiatric Exam Psychiatric exam: Normal Affect, Normal Mood - Skin Skin Exam: Dry, Intact Assessment and Plan (1) Closed fracture of left distal radius Assessment & Plan: plan for physical, occupational and rec therapy Status: Acute (2) Displaced fracture of left ulna styloid process, initial encounter for closed fracture Status: Acute (3) Episode of generalized weakness Status: Acute (4) Hyperglycemia Status: Acute (5) Hypertension Status: Acute (6) Traumatic subarachnoid hemorrhage Status: Acute
[2017-07-12] MEDS: Insulin Detemir 100 Units/ml Inj SC SCH (21:29)
[2017-07-13 06:30] LABS: HEMATOCRIT 32.7 % (34.0-47.0); MEAN CORPUSCULAR HEMOGLOBIN 32.7 pg (27.0-31.0); MEAN CORPUSCULAR HGB CONC 33.7 g/dL (33.0-37.0); RED CELL DISTRIBUTION WIDTH 12.3 % (11.5-14.5); WHITE BLOOD COUNT 8.4 K/uL (4.8-10.8)
[2017-07-13] MEDS: Insulin Regular 100 units/ml SC SCH ×2 (07:01→16:12)
[2017-07-13] MEDS: Calcium-Vit D 500 mg-200 Units Tab UD PO SCH ×2 (08:35→16:07)
[2017-07-13] MEDS: Cholecalciferol 1,000 INTLU TAB PO SCH (08:35)
[2017-07-13] MEDS: Aspirin-Dipyridamole 200-25 mg ER Cap PO SCH ×2 (08:35→16:07)
[2017-07-13] MEDS: Mag&Al/Simet/Diphen/Lido 237 ML KIT PO SCH ×4 (08:35→21:22)
[2017-07-13] MEDS: Multivitamin With Minerals Tab PO SCH (08:35)
[2017-07-13] MEDS: Enoxaparin 30 mg Syringe SC SCH (08:36)
[2017-07-13] MEDS: Nystatin 100,000 Units/ml Oral Susp 5 ml UD PO SCH ×4 (08:36→21:22)
--- NOTE | 2017-07-13 09:44 | CP.PCM.PN ---
Subjective - Date & Time of Evaluation Date of Evaluation: 07/13/17 Time of Evaluation: 09:43 - Subjective Subjective: 86 y/o female seen in acute rehab this morning after completing physical therapy. Pt is progressing well and says she has been walking with a cane this morning without difficulty. Pt says her diarrhea is mild but resolving and much improved since two days ago. Pt says she had a full breakfast this morning and is able to tolerate eating without any mouth pain. Splint is intact to the left wrist and pt denies pain, tingling, numbness or burning in left wrist or hand. Denies F/C/N/V/CP/SOB Objective - Vital Signs/Intake and Output Vital Signs (last 24 hours): Temp Pulse Resp BP Pulse Ox 98.1 F 65 18 147/72 96 07/12/17 20:03 07/12/17 20:03 07/12/17 20:03 07/12/17 20:03 07/12/17 20:03 - Medications Medications: Current Medications Acetaminophen (Tylenol 325mg Tab) 650 mg PO Q6 PRN PRN Reason: Pain, Mild (1-3) Last Admin: 07/10/17 11:43 Dose: 650 mg Atorvastatin Calcium (Lipitor) 40 mg PO HS [facility] Last Admin: 07/12/17 21:28 Dose: 40 mg Calcium/Vitamin D (Oyster Shell Calcium/Vitamin D 500 Mg-200 Iu) 1 tab PO BIDWM [facility] Last Admin: 07/13/17 08:35 Dose: 1 tab Chlorthalidone (Hygroton) 12.5 mg PO DAILY [facility] Last Admin: 07/13/17 08:36 Dose: 12.5 mg Cholecalciferol (Vitamin D) 2,000 iu PO DAILY [facility] Last Admin: 07/13/17 08:35 Dose: 2,000 intlu Dextrose (Dextrose 50% Inj) 0 ml IV STAT PRN; Protocol PRN Reason: Hypoglycemia Protocol Dextrose (Glutose 15) 0 gm PO ONCE PRN; Protocol PRN Reason: Hypoglycemia Protocol Dipyridamole/Aspirin (Aggrenox 25-200 Mg) 1 ea PO BID [facility] Last Admin: 07/13/17 08:35 Dose: 1 ea Enoxaparin Sodium (Lovenox) 30 mg SC DAILY [facility] PRN Reason: Protocol Last Admin: 07/13/17 08:36 Dose: 30 mg Glucagon (Glucagen Diagnostic Kit) 0 mg IM STAT PRN; Protocol PRN Reason: Hypoglycemia Protocol Insulin Detemir (Levemir) 5 units SC HS [facility] Last Admin: 07/12/17 21:29 Dose: 5 units Insulin Human Regular (Humulin R) 0 units SC BIDWM [facility] PRN Reason: Protocol Last Admin: 07/13/17 07:01 Dose: Not Given Multivitamins/Minerals (Therapeutic-M Tab) 1 tab PO DAILY [facility] Last Admin: 07/13/17 08:35 Dose: 1 tab Nystatin (Nystatin Oral Susp) 5 ml PO QID [facility] Last Admin: 07/13/17 08:36 Dose: 5 ml Saliva Substitute (First Magic Mouthwash) 5 ml PO QID [facility] Last Admin: 07/13/17 08:35 Dose: 5 ml Sertraline HCl (Zoloft) 50 mg PO DAILY [facility] Last Admin: 07/13/17 08:36 Dose: 50 mg Sitagliptin Phosphate (Januvia) 50 mg PO DAILY [facility] Last Admin: 07/13/17 08:35 Dose: 50 mg - Labs Labs: 07/13/17 05:10 07/12/17 05:15 PT 12.0 Seconds (9.8-13.1) 07/02/17 06:26 INR 1.1 (0.9-1.2) 07/02/17 06:26 APTT 24.7 Seconds (25.6-37.1) L 07/02/17 06:26 - Constitutional Appears: Well, Non-toxic, No Acute Distress - Head Exam Head Exam: NORMOCEPHALIC Additional comments: s/p head trauma, no apparent deformity - Eye Exam Eye Exam: Normal appearance Pupil Exam: PERRL - ENT Exam ENT Exam: Mucous Membranes Moist Additional comments: erythema to hard palate resolved mild mucosal irritation, improving - Neck Exam Neck Exam: Full ROM, Normal Inspection. absent: Tenderness - Respiratory Exam Respiratory Exam: Clear to Ausculation Bilateral, NORMAL BREATHING PATTERN. absent: Rhonchi, Wheezes, Respiratory Distress - Cardiovascular Exam Cardiovascular Exam: REGULAR RHYTHM, +S1, +S2. absent: JVD - GI/Abdominal Exam GI & Abdominal Exam: Soft, Normal Bowel Sounds. absent: Tenderness - Rectal Exam Rectal Exam: Deferred - Extremities Exam Extremities Exam: Normal Capillary Refill, Normal Inspection. absent: Calf Tenderness, Pedal Edema Additional comments: left wrist in volar splint and CONSTANTIN bandage able to wiggle fingers without difficulty full ROM on assessment of active flexion and extension of digits with no tenderness or pain elicited on examination cap refill WNL - Back Exam Back Exam: NORMAL INSPECTION - Neurological Exam Neurological Exam: Alert, Awake, Oriented x3 - Psychiatric Exam Psychiatric exam: Normal Affect, Normal Mood - Skin Skin Exam: Dry, Intact, Normal Color Assessment and Plan - Assessment and Plan (Free Text) Assessment: 1) Left Distal Ulna/Radius Fracture -s/p ORIF of L comminuted wrist fracture with Dr. Alcantara -pt in volar splint to LUE - to be left C/D/I -c/w Tylenol and Tramadol prn pain -c/w PT -per ortho, orthopedically stable at this time and will f/u in [place] office within 1 week of discharge 2) Fall with traumatic subarachnoid hemorrhage -possibly secondary to seizure/arrythmia/ETOH -Dr. Hayes consulted for neurosurgery, pt cleared for D/C from neurosurgery standpoint -Repeat CT head - no interval change, no acute intracranial abnormalities -Aggrenox resumed per neuro -c/w PT/OT in acute rehab -plan for D/C home once stable for ADLs per rehab,tentative discharge date 07/15 3) Hyponatremia secondary to mild dehydration, resolving -Na+ 129 -Chlorthalidone discontinued -monitor lytes 4) IDDM2 -stable -HgA1C: 7.7 -c/w Sitagliptin and insulin coverage scale 5) Throat lesion causing decreased PO intake -pain decreasing, PO intake increasing -continue Nystatin oral suspension, Magic Mouthwash qid -ENT Dr. Zayas on consult, recommends outpatient F/U for resolution of oral lesion 6) Hypertension -d/c Chlorthalidone; Lisinopril resumed -monitor 7) Chronic Kidney Disease -Stage 3B -improving as when compared to 01/2017 values -monitor kidney function 8) Diarrhea, resolving -Senokot discontinued 9) Hyperlipidemia -c/w Atorvastatin -lipid panel WNL 10) Depression -C/w Zoloft 50mg PO daily 11) Diet -c/w heart healthy diet 12) DVT Prophylaxis -SCDs -c/w Aggrenox, Lovenox 13) Code Status -Full Code
[2017-07-13 10:24] LABS: BLOOD UREA NITROGEN 14 mg/dl (7-17); CALCIUM 9.1 mg/dL (8.4-10.2); CARBON DIOXIDE 23 mmol/L (22-30); CHLORIDE 97 mmol/L (98-107); GFR AFRICAN-AMERICAN > 60; GLUCOSE,RANDOM 141 mg/dL (65-105); SODIUM 129 mmol/l (132-148)
--- NOTE | 2017-07-13 12:30 | PSY.TMCNF ---
Nursing - Vital Signs Vital Signs (Last 8 hours): Vital Signs 07/13/17 07/13/17 10:00 10:45 Temperature 97.4 F L 97.4 F L Pulse Rate 75 75 Respiratory 21 21 Rate Blood Pressure 144/73 144/73 O2 Sat by Pulse 95 Oximetry Pain: 0 - Precautions: Precautions: Fall Prevention - Medications/Other Issues Comment: -edema on left hand resolved. -short arm sling replaced by ortho PA - Consults Comment: Dr. Mcgregor, Dr. Alcantara - Skin Incision Site: Left wrist area with splint wrapped with marj Incision Line Treatment: Dressing change c/o Dr. Alcantaar's P.A. - Toileting Toileting: Minimal Assistance - Bladder Management Bladder Pattern: Normal Voiding Method: Toilet Bladder Management: Modified Independent Frequency of Accidents: 0 - Bowel Management Bowel Pattern: Normal Bowel Management: Modified Independent Frequency of Accidents: 0 - Transfers Transfers: Contact Guard - ADL's ADL's: Moderate Assistance - Pain Management Comments: Tylenol PRN - Patient/Family Teaching Comments: CARE POST ORIF, ELEVATING RUE, AND SAFETY PRECAUTIONS - Goals/Time Frame Comments: PER MULTIDISCIPLINARY CARE PLANS AND GOALS - Provider Provider: NEVILLE ARAUZN RN CRRN Physical Therapy - Bed Mobility Bed Mobility: Contact Guard - Transfers Wheelchair to Mat: Minimal Assistance Sit to Stand: Minimal Assistance Comment: min A for sit<>stand from a lower chair surface. CGA with RUE push- off from commode and w/c surface with CGA when pt provided with verbal and tactile cues for body mechanics. - Ambulation Level of Assistance: Supervision, Verbal Cues, Contact Guard Distance (ft.): 125 Assistive Devices: Single point cane - Stair Negotiation Stairs: Level of Assistance: Contact Guard Number of Stairs: 6 Stairs: Assistive Devices: Right Handrail - Standing Balance Static Stand: Supervision Dynamic Stand: Contact Guard Assist - Pain Pain (assessed during therapy session): 2 Management Techniques: Medication, Position Change, Elevation, Inactivity Comment: --In LUE/wrist-intermittent - Insight/Carryover Insight/Carryover: Good - Patient/Family Education Comment: -ongoing for adls, functional transfers/mobility using adaptive/safety strategies with good carryover. -educated in LUE management: elevation, self ROM/AAROm in L shoulder elbow, digits, edema management with good carryover and progress. -Pt needs additional training/education tto improve carryover and safety. -pain/edema management LUE with progress/decreased pain and increased AROM/function in LUE - Assessment/Plan Assessment: Pt is agreeable to participate in recreation therapy sessions following verbal cues for encouragement. Pt's participation is limited by fatigue, decrease arousal, and recently constipation. Pt requires min-mod verbal cues for direction following during leisure tasks. Pt enjoys watching television during her free time. Pt would benefit from participating in recreation therapy sessions if agreeable. - Goals Timeframe: 3 days Goals: -Grooming: I/setup seated; DS standing. -Upper body bathing/dressing: CS assist and verbal cues dressing LUE first seated/adaptive/compensatory strategies. -Lower body dressing/bathing: CG/CS and verbal cues with assistive devices. -Toileting: CS/Supervision and assist and verbal cues. -LUE: increase L shoulder AROM, elbow flex/extension and digits to WFLS for improved adl/Iadl function. -gather/transport items from closet with CS/CG and verbal cues with SPC/assistive device prn. -Caregiver to be I assisting/cueing pt with adls, functional transfers/mobility - Provider License Number: [id number] Occupational Therapy - Arousal/Attention/Orientation Patient Orientation: Person, Place, Time, Appropriate to Age, Appropriate to Situation - ADL/IADL Self Feeding: Set-up Help Grooming: Supervision, Verbal Cues, Set-up Help Bathing-Upper Extremity: Verbal Cues, Set-up Help, Minimal Assistance Bathing-Lower Extremity: Verbal Cues, Set-up Help, Minimal Assistance Dressing-Upper Extremity: Supervision, Verbal Cues, Set-up Help Dressing-Lower Extremity: Verbal Cues, Set-up Help, Minimal Assistance Comment: -Pt needs reminders to dress LUE first during adls. -Pt completes showering tasks in seated position on shower bench with hand held shower - Sitting Balance Static Sitting: Supervision Dynamic Sitting: Reaches across midline, Reaches out of base of support, Reaches within base of support, Minimal Assistance Comment: seated at edge of bed - Transfers Wheelchair to Bed Transfers: Supervision, Verbal Cues, Set-up Help, Contact Guard Toilet Transfers: Supervision, Verbal Cues, Set-up Help, Contact Guard Comment: shower transfers: CG/Min assist a nd verabl cues - Wheelchair Management Level of Assistance: Dependent Distance (ft.): 3 - Upper Extremity Status Right Upper Extremity Comment: A/PROMis WFLS; strength 4-/5 Left Upper Extremity Comment: Pt immobilized post L wrist ORIF; . PROM/AROM in L shoulder, elbow, and digits limited by pain and edema or anticipation of pain - Pain Pain (assessed during therapy session): 2 Alleviating Techniques: Medication, Position Change, Elevation, Inactivity Comment: --In LUE/wrist-intermittent - Insight/Carryover Insight/Carryover: Good - Patient/Family Education Comment: -ongoing for adls, functional transfers/mobility using adaptive/safety strategies with good carryover. -educated in LUE management: elevation, self ROM/AAROm in L shoulder elbow, digits, edema management with good carryover and progress. -Pt needs additional training/education tto improve carryover and safety. -pain/edema management LUE with progress/decreased pain and increased AROM/function in LUE - Assessment/Plan Assessment: Pt is agreeable to participate in recreation therapy sessions following verbal cues for encouragement. Pt's participation is limited by fatigue, decrease arousal, and recently constipation. Pt requires min-mod verbal cues for direction following during leisure tasks. Pt enjoys watching television during her free time. Pt would benefit from participating in recreation therapy sessions if agreeable. - Goals Timeframe: 3 days Goals: -Grooming: I/setup seated; DS standing. -Upper body bathing/dressing: CS assist and verbal cues dressing LUE first seated/adaptive/compensatory strategies. -Lower body dressing/bathing: CG/CS and verbal cues with assistive devices. -Toileting: CS/Supervision and assist and verbal cues. -LUE: increase L shoulder AROM, elbow flex/extension and digits to WFLS for improved adl/Iadl function. -gather/transport items from closet with CS/CG and verbal cues with SPC/assistive device prn. -Caregiver to be I assisting/cueing pt with adls, functional transfers/mobility - Provider Therapist: Susu Cuba, OTR/L Speech Therapy - Plan Assessment: Pt is agreeable to participate in recreation therapy sessions following verbal cues for encouragement. Pt's participation is limited by fatigue, decrease arousal, and recently constipation. Pt requires min-mod verbal cues for direction following during leisure tasks. Pt enjoys watching television during her free time. Pt would benefit from participating in recreation therapy sessions if agreeable. Recreational Therapy - Participation Participation: Participates in Individual and/or Group Sessions, Monitors His/ Her Own Leisure Time - Attendance Attendance: Daily - Activities Leisure Activities: Television - Socialization Level of Socialization: Initiates/interacts freely with care givers and peer - Diversional Time Diversional Time: television, socializing - Assessment Assessment/Plan: Pt is agreeable to participate in recreation therapy sessions following verbal cues for encouragement. Pt's participation is limited by fatigue, decrease arousal, and recently constipation. Pt requires min-mod verbal cues for direction following during leisure tasks. Pt enjoys watching television during her free time. Pt would benefit from participating in recreation therapy sessions if agreeable. Problems Currently Limiting Participation: pain, decrease leisure awareness level, decrease arousal level Goals and Time Frame: Pt will be encouraged to participate in 1:1 and group recreation therapy sessions 3-5x week to improve leisure awareness level, arousal level, activity tolerance level, and direction following. - Provider Therapist: Radha Ewing, RN [facility][id number] Nutrition - Current Diet Current Diet/ Supplement/ Feedings: Heart healthy low consistent CHO Mech altered(finely chopped) - Appetite Percent Meal Consumed: 50-74% - Comments Comments: CARE POST ORIF, ELEVATING RUE, AND SAFETY PRECAUTIONS - Assessment/Goals/Time Frame Assessment/Goals/Time Frame: -edema on left hand resolved. -short arm sling replaced by ortho PA 07/07 - Provider Provider: Parvin Ann RD Case Management - Psychosocial Assessment Support Systems: Patient's daughters- Lauren Vergara- [phone], , Amy Call- [phone] Psychological Interventions/Needs: Patient is alert and oriented x3, drowsy from pain medications. Patient expresses feeling anxious regarding L wrist splint. Discharge Concerns: Patient lives alone and currently requiring min A overall. Patient/Family Meeting: CM met with patient and rehab team. Uzbek translation via in demand- Any #[id number] Intervention/Goal/Outcome:: 1. Goal: Intermittent supervision. 2. Plan: Home with [facility]. 3. continued emotional support. 4. Tentative discharge date: 2016. 5. caregiver training with daughter. 6. reinstate homemaker services. 7. continued emotional support. - Discharge Plan Home Services: [facility] care - Provider Provider: KEYA Alves LSW License Number: [id number] Rehabilitation Plan - Discharge Plan Estimated Date of Discharge: 07/15/17 Discharge to: Home
--- NOTE | 2017-07-13 13:15 | RAD ---
PROCEDURE: Left Wrist Radiographs. HISTORY: post op ORIF COMPARISON: Left wrist radiographs dated 06/30/2017. FINDINGS: Distal left upper extremity cast again limits evaluation of fine bony detail. Distal radial fixation plate and overlying skin niesha are redemonstrated. Orthopedic hardware remains intact. No new fracture or significant interval change is identified. IMPRESSION: Findings as above.
[2017-07-13] MEDS: Insulin Detemir 100 Units/ml Inj SC SCH (21:23)
[2017-07-14 06:39] LABS: CALCIUM 9.1 mg/dL (8.4-10.2)
[2017-07-14] MEDS: Insulin Regular 100 units/ml SC SCH ×2 (07:06→17:14)
[2017-07-14] MEDS: Nystatin 100,000 Units/ml Oral Susp 5 ml UD PO SCH ×4 (08:33→21:27)
[2017-07-14] MEDS: Cholecalciferol 1,000 INTLU TAB PO SCH (08:34)
[2017-07-14] MEDS: Mag&Al/Simet/Diphen/Lido 237 ML KIT PO SCH ×4 (08:34→21:27)
[2017-07-14] MEDS: Aspirin-Dipyridamole 200-25 mg ER Cap PO SCH ×2 (08:34→17:14)
[2017-07-14] MEDS: Multivitamin With Minerals Tab PO SCH (08:35)
[2017-07-14] MEDS: Calcium-Vit D 500 mg-200 Units Tab UD PO SCH ×2 (08:35→17:17)
[2017-07-14] MEDS: Enoxaparin 30 mg Syringe SC SCH (08:36)
--- NOTE | 2017-07-14 14:38 | CP.PCM.PN ---
Subjective - Date & Time of Evaluation Date of Evaluation: 07/14/17 Time of Evaluation: 14:36 - Subjective Subjective: Patient in PT. No complaints, denies numbness/tinglin.g Objective - Vital Signs/Intake and Output Vital Signs (last 24 hours): Temp Pulse Resp BP Pulse Ox 98.4 F 71 20 130/70 98 07/14/17 08:00 07/14/17 08:35 07/14/17 08:00 07/14/17 08:35 07/14/17 08:00 - Medications Medications: Current Medications Acetaminophen (Tylenol 325mg Tab) 650 mg PO Q6 PRN PRN Reason: Pain, Mild (1-3) Last Admin: 07/10/17 11:43 Dose: 650 mg Atorvastatin Calcium (Lipitor) 40 mg PO HS [facility] Last Admin: 07/13/17 21:23 Dose: 40 mg Calcium/Vitamin D (Oyster Shell Calcium/Vitamin D 500 Mg-200 Iu) 1 tab PO BIDWM [facility] Last Admin: 07/14/17 08:35 Dose: 1 tab Cholecalciferol (Vitamin D) 2,000 iu PO DAILY [facility] Last Admin: 07/14/17 08:34 Dose: 2,000 intlu Dextrose (Dextrose 50% Inj) 0 ml IV STAT PRN; Protocol PRN Reason: Hypoglycemia Protocol Dextrose (Glutose 15) 0 gm PO ONCE PRN; Protocol PRN Reason: Hypoglycemia Protocol Dipyridamole/Aspirin (Aggrenox 25-200 Mg) 1 ea PO BID [facility] Last Admin: 07/14/17 08:34 Dose: 1 ea Enoxaparin Sodium (Lovenox) 30 mg SC DAILY [facility] PRN Reason: Protocol Last Admin: 07/14/17 08:36 Dose: 30 mg Glucagon (Glucagen Diagnostic Kit) 0 mg IM STAT PRN; Protocol PRN Reason: Hypoglycemia Protocol Insulin Detemir (Levemir) 5 units SC HS [facility] Last Admin: 07/13/17 21:23 Dose: 5 units Insulin Human Regular (Humulin R) 0 units SC BIDWM [facility] PRN Reason: Protocol Last Admin: 07/14/17 07:06 Dose: Not Given Lisinopril (Zestril) 20 mg PO DAILY [facility] Last Admin: 07/14/17 08:35 Dose: 20 mg Multivitamins/Minerals (Therapeutic-M Tab) 1 tab PO DAILY [facility] Last Admin: 07/14/17 08:35 Dose: 1 tab Nystatin (Nystatin Oral Susp) 5 ml PO QID [facility] Last Admin: 07/14/17 12:33 Dose: 5 ml Saliva Substitute (First Magic Mouthwash) 5 ml PO QID [facility] Last Admin: 07/14/17 12:33 Dose: 5 ml Sertraline HCl (Zoloft) 50 mg PO DAILY [facility] Last Admin: 07/14/17 08:36 Dose: 50 mg Sitagliptin Phosphate (Januvia) 50 mg PO DAILY [facility] Last Admin: 07/14/17 08:36 Dose: 50 mg - Labs Labs: 07/13/17 05:10 07/14/17 05:25 PT 12.0 Seconds (9.8-13.1) 07/02/17 06:26 INR 1.1 (0.9-1.2) 07/02/17 06:26 APTT 24.7 Seconds (25.6-37.1) L 07/02/17 06:26 - Extremities Exam Additional comments: splint removed, niesha and sutures removed, incision well healed, steristrips applied. NVID pre and post casting. +radial pulse. no erythema, incision dry Assessment and Plan (1) Closed fracture of left distal radius Assessment & Plan: POD#14 s/p ORIF left distal radius post op xrays reviewed, maintained alignment niesha/sutures removed and short arm cast placed non weight bearing orthopedically stable for d/c f/u Dr. Alcantara in 2 weeks d/w Dr. Alcantara, agrees with above Status: Acute (2) Displaced fracture of left ulna styloid process, initial encounter for closed fracture Status: Acute
[2017-07-14] MEDS: Insulin Detemir 100 Units/ml Inj SC SCH (22:10)
[2017-07-15 05:56] LABS: BASO % 0.4 % (0.0-2.0); EOS # 0.3 K/uL (0.0-0.7); EOS % 3.1 % (0.0-4.0); HEMATOCRIT 32.3 % (34.0-47.0); LYMPH # 1.9 K/uL (1.0-4.3); LYMPH % 21.2 % (20.0-40.0); MEAN CELL VOLUME 95.6 fl (81.0-99.0); MEAN CORPUSCULAR HEMOGLOBIN 32.6 pg (27.0-31.0); MEAN CORPUSCULAR HGB CONC 34.1 g/dL (33.0-37.0); MEAN PLATELET VOLUME 9.4 fl (7.2-11.7); MONO # 0.7 K/uL (0.0-0.8); NEUT # 6.1 K/uL (1.8-7.0); NEUT % 67.3 % (50.0-75.0); NRBC % 0.1 % (0.0-0.0); RED CELL DISTRIBUTION WIDTH 12.8 % (11.5-14.5); WHITE BLOOD COUNT 9.1 K/uL (4.8-10.8)
[2017-07-15 06:51] LABS: CALCIUM 9.1 mg/dL (8.4-10.2); POTASSIUM 4.2 MMOL/L (3.6-5.0)
[2017-07-15] MEDS: Insulin Regular 100 units/ml SC SCH ×2 (08:00→16:00)
[2017-07-15] MEDS: Sodium Chloride 0.9% 1,000 ML IV SCH ×3 (08:49→16:02)
[2017-07-15] MEDS: Cholecalciferol 1,000 INTLU TAB PO SCH (08:57)
[2017-07-15] MEDS: Multivitamin With Minerals Tab PO SCH (08:57)
[2017-07-15] MEDS: Nystatin 100,000 Units/ml Oral Susp 5 ml UD PO SCH ×4 (08:58→21:52)
[2017-07-15] MEDS: Aspirin-Dipyridamole 200-25 mg ER Cap PO SCH ×2 (08:58→17:18)
[2017-07-15] MEDS: Enoxaparin 30 mg Syringe SC SCH (08:58)
[2017-07-15] MEDS: Mag&Al/Simet/Diphen/Lido 237 ML KIT PO SCH ×4 (08:58→21:52)
[2017-07-15] MEDS: Calcium-Vit D 500 mg-200 Units Tab UD PO SCH ×2 (08:58→16:13)
[2017-07-15] MEDS ORDERED: Sodium Chloride 0.9% 1,000 ML IV SCH ×2 (09:01→18:30)
--- NOTE | 2017-07-15 14:04 | CP.PCM.CON ---
History of Present Illness - History of Present Illness History of Present Illness: Pt seen for supportive therapy 1:30-1:50. Pt spoke of discharge the next day. Pt spoke of depresison at times, strategies reviewed to reduce distress. Pt spoke of iesha, positive relationship with daughter and other behaviors to enhance her mood. Pt adjusting increasingly well, mood improve from admission and affect brighter. Past Patient History - Past Medical History & Family History Past Medical History?: Yes - Past Social History Smoking Status: Never Smoked - CARDIAC Hx Hypertension: Yes - PULMONARY Hx Respiratory Disorders: No - NEUROLOGICAL HX Cerebrovascular Accident: Yes - HEENT Hx HEENT Problems: Yes Hx Cataracts: Yes (had surgery) Other/Comment: wear eyeglasses for reading and watching television but lost it per patient as interpreted by american sign language interpreter - RENAL Hx Chronic Kidney Disease: Yes Hx Dialysis: No - ENDOCRINE/METABOLIC Hx Diabetes Mellitus Type 2: Yes - HEMATOLOGICAL/ONCOLOGICAL Hx Blood Disorders: No Hx AIDS: No Hx Human Immunodeficiency Virus (HIV): No - INTEGUMENTARY Hx Dermatological Problems: No - MUSCULOSKELETAL/RHEUMATOLOGICAL Hx Falls: Yes (x2) - GASTROINTESTINAL Hx Gastrointestinal Disorders: No - GENITOURINARY/GYNECOLOGICAL Hx Genitourinary Disorders: No - PSYCHIATRIC Hx Psychophysiologic Disorder: Yes Hx Depression: Yes Hx Substance Use: No Other/Comment: insomnia - SURGICAL HISTORY Hx Surgeries: Yes Hx Cataract Extraction: Yes Hx Herniorrhaphy: Yes (Abdominal hernia repair) Hx Hysterectomy: Yes - ANESTHESIA Hx Anesthesia: Yes Hx Anesthesia Reactions: No Hx Malignant Hyperthermia: No Meds Allergies/Adverse Reactions: Allergies Allergy/AdvReac Type Severity Reaction Status Date / Time No Known Allergies Allergy Verified 06/30/17 18:32 - Medications Medications: Current Medications Acetaminophen (Tylenol 325mg Tab) 650 mg PO Q6 PRN PRN Reason: Pain, Mild (1-3) Last Admin: 07/10/17 11:43 Dose: 650 mg Atorvastatin Calcium (Lipitor) 40 mg PO HS [facility] Last Admin: 07/14/17 21:27 Dose: 40 mg Calcium/Vitamin D (Oyster Shell Calcium/Vitamin D 500 Mg-200 Iu) 1 tab PO BIDWM [facility] Last Admin: 07/15/17 08:58 Dose: 1 tab Cholecalciferol (Vitamin D) 2,000 iu PO DAILY [facility] [place] Last Admin: 07/15/17 08:57 Dose: 2,000 intlu Dextrose (Dextrose 50% Inj) 0 ml IV STAT PRN; Protocol PRN Reason: Hypoglycemia Protocol Dextrose (Glutose 15) 0 gm PO ONCE PRN; Protocol PRN Reason: Hypoglycemia Protocol Dipyridamole/Aspirin (Aggrenox 25-200 Mg) 1 ea PO BID [facility] [place] Last Admin: 07/15/17 08:58 Dose: 1 ea Enoxaparin Sodium (Lovenox) 30 mg SC DAILY [facility] PRN Reason: Protocol Last Admin: 07/15/17 08:58 Dose: 30 mg Glucagon (Glucagen Diagnostic Kit) 0 mg IM STAT PRN; Protocol PRN Reason: Hypoglycemia Protocol Insulin Detemir (Levemir) 5 units SC HS [facility] [place] Last Admin: 07/14/17 22:10 Dose: 5 units Insulin Human Regular (Humulin R) 0 units SC BIDWM [facility] PRN Reason: Protocol Last Admin: 07/15/17 08:00 Dose: Not Given Lisinopril (Zestril) 20 mg PO DAILY [facility] Last Admin: 07/15/17 09:01 Dose: 20 mg Multivitamins/Minerals (Therapeutic-M Tab) 1 tab PO DAILY [facility] Last Admin: 07/15/17 08:57 Dose: 1 tab Nystatin (Nystatin Oral Susp) 5 ml PO QID [facility] Last Admin: 07/15/17 08:58 Dose: 5 ml Saliva Substitute (First Magic Mouthwash) 5 ml PO QID [facility] Last Admin: 07/15/17 08:58 Dose: 5 ml Sertraline HCl (Zoloft) 50 mg PO DAILY [facility] Last Admin: 07/15/17 08:57 Dose: 50 mg Sitagliptin Phosphate (Januvia) 50 mg PO DAILY [facility] [place] Last Admin: 07/15/17 08:57 Dose: 50 mg Results - Vital Signs Recent Vital Signs: Last Vital Signs Temp 98.1 F 07/15/17 09:04 Pulse 68 07/15/17 09:04 Resp 22 07/15/17 09:04 BP 124/78 07/15/17 09:04 Pulse Ox 97 07/15/17 09:04 - Labs Result Diagrams: 07/15/17 05:40 07/15/17 05:40 Labs: Laboratory Results - last 24 hr 07/14/17 07/15/17 07/15/17 16:17 05:40 05:40 WBC 9.1 RBC 3.38 L Hgb 11.0 L Hct 32.3 L MCV 95.6 MCH 32.6 H MCHC 34.1 RDW 12.8 Plt Count 235 MPV 9.4 Neut % (Auto) 67.3 Lymph % (Auto) 21.2 [place] % (Auto) 8.0 Eos % (Auto) 3.1 Baso % (Auto) 0.4 Neut # 6.1 Lymph # 1.9 [place] # 0.7 Eos # 0.3 Baso # 0.0 Sodium 123 L Potassium 4.2 Chloride 91 L Carbon Dioxide 26 Anion Gap 10 BUN 19 H Creatinine 1.1 Est GFR ( Amer) 57 Est GFR (Non-Af Amer) 47 POC Glucose (mg/dL) 190 H Random Glucose 155 H Serum Osmolality Calcium 9.1 07/15/17 07/15/17 06:20 10:20 WBC RBC Hgb Hct MCV MCH MCHC RDW Plt Count MPV Neut % (Auto) Lymph % (Auto) [place] % (Auto) Eos % (Auto) Baso % (Auto) Neut # Lymph # [place] # Eos # Baso # Sodium Potassium Chloride Carbon Dioxide Anion Gap BUN Creatinine Est GFR ( Amer) Est GFR (Non-Af Amer) POC Glucose (mg/dL) 138 H Random Glucose Serum Osmolality 271 L Calcium
--- NOTE | 2017-07-15 14:54 | CP.PCM.PN ---
Subjective - Date & Time of Evaluation Date of Evaluation: 07/14/17 Time of Evaluation: 22:00 - Subjective Subjective: no acute complaints at present Objective - Vital Signs/Intake and Output Vital Signs (last 24 hours): Temp Pulse Resp BP Pulse Ox 98.1 F 68 22 124/78 97 07/15/17 09:04 07/15/17 09:04 07/15/17 09:04 07/15/17 09:04 07/15/17 09:04 - Medications Medications: Current Medications Acetaminophen (Tylenol 325mg Tab) 650 mg PO Q6 PRN PRN Reason: Pain, Mild (1-3) Last Admin: 07/10/17 11:43 Dose: 650 mg Atorvastatin Calcium (Lipitor) 40 mg PO HS [facility] Last Admin: 07/14/17 21:27 Dose: 40 mg Calcium/Vitamin D (Oyster Shell Calcium/Vitamin D 500 Mg-200 Iu) 1 tab PO BIDWM [facility] Last Admin: 07/15/17 08:58 Dose: 1 tab Cholecalciferol (Vitamin D) 2,000 iu PO DAILY [facility] Last Admin: 07/15/17 08:57 Dose: 2,000 intlu Dextrose (Dextrose 50% Inj) 0 ml IV STAT PRN; Protocol PRN Reason: Hypoglycemia Protocol Dextrose (Glutose 15) 0 gm PO ONCE PRN; Protocol PRN Reason: Hypoglycemia Protocol Dipyridamole/Aspirin (Aggrenox 25-200 Mg) 1 ea PO BID [facility] Last Admin: 07/15/17 08:58 Dose: 1 ea Enoxaparin Sodium (Lovenox) 30 mg SC DAILY [facility] PRN Reason: Protocol Last Admin: 07/15/17 08:58 Dose: 30 mg Glucagon (Glucagen Diagnostic Kit) 0 mg IM STAT PRN; Protocol PRN Reason: Hypoglycemia Protocol Insulin Detemir (Levemir) 5 units SC [facility] Last Admin: 07/14/17 22:10 Dose: 5 units Insulin Human Regular (Humulin R) 0 units SC BIDWM [facility] PRN Reason: Protocol Last Admin: 07/15/17 08:00 Dose: Not Given Lisinopril (Zestril) 20 mg PO DAILY [facility] Last Admin: 07/15/17 09:01 Dose: 20 mg Multivitamins/Minerals (Therapeutic-M Tab) 1 tab PO DAILY [facility] Last Admin: 07/15/17 08:57 Dose: 1 tab Nystatin (Nystatin Oral Susp) 5 ml PO QID [facility] Last Admin: 07/15/17 08:58 Dose: 5 ml Saliva Substitute (First Magic Mouthwash) 5 ml PO QID [facility] Last Admin: 07/15/17 08:58 Dose: 5 ml Sertraline HCl (Zoloft) 50 mg PO DAILY [facility] Last Admin: 07/15/17 08:57 Dose: 50 mg Sitagliptin Phosphate (Januvia) 50 mg PO DAILY [facility] Last Admin: 07/15/17 08:57 Dose: 50 mg - Labs Labs: 07/15/17 05:40 07/15/17 14:25 PT 12.0 Seconds (9.8-13.1) 07/02/17 06:26 INR 1.1 (0.9-1.2) 07/02/17 06:26 APTT 24.7 Seconds (25.6-37.1) L 07/02/17 06:26 - Head Exam Head Exam: ATRAUMATIC, NORMAL INSPECTION, NORMOCEPHALIC - Eye Exam Eye Exam: EOMI, Normal appearance, PERRL Pupil Exam: NORMAL ACCOMODATION - ENT Exam ENT Exam: Mucous Membranes Moist, Normal Exam - Neck Exam Neck Exam: Normal Inspection - Respiratory Exam Respiratory Exam: NORMAL BREATHING PATTERN - Cardiovascular Exam Cardiovascular Exam: REGULAR RHYTHM - GI/Abdominal Exam GI & Abdominal Exam: Soft, Normal Bowel Sounds - Rectal Exam Rectal Exam: NORMAL INSPECTION - Exam External exam: NORMAL EXTERNAL EXAM - Extremities Exam Extremities Exam: Full ROM, Normal Capillary Refill - Back Exam Back Exam: NORMAL INSPECTION - Neurological Exam Neurological Exam: Alert, Awake Neuro motor strength exam: Left Upper Extremity: 3, Right Upper Extremity: 3, Left Lower Extremity: 3, Right Lower Extremity: 3 - Psychiatric Exam Psychiatric exam: Normal Affect, Normal Mood - Skin Skin Exam: Dry, Intact Assessment and Plan (1) Closed fracture of left distal radius Status: Acute (2) Displaced fracture of left ulna styloid process, initial encounter for closed fracture Assessment & Plan: plan for physical, occupational and rec therapy Status: Acute (3) Episode of generalized weakness Status: Acute (4) Hyperglycemia Status: Acute (5) Hypertension Status: Acute (6) Traumatic subarachnoid hemorrhage Status: Acute
--- NOTE | 2017-07-15 14:56 | CP.PCM.PN ---
Subjective - Date & Time of Evaluation Date of Evaluation: 07/15/17 Time of Evaluation: 13:00 - Subjective Subjective: no complaints of pain Objective - Vital Signs/Intake and Output Vital Signs (last 24 hours): Temp Pulse Resp BP Pulse Ox 98.1 F 68 22 124/78 97 07/15/17 09:04 07/15/17 09:04 07/15/17 09:04 07/15/17 09:04 07/15/17 09:04 - Medications Medications: Current Medications Acetaminophen (Tylenol 325mg Tab) 650 mg PO Q6 PRN PRN Reason: Pain, Mild (1-3) Last Admin: 07/10/17 11:43 Dose: 650 mg Atorvastatin Calcium (Lipitor) 40 mg PO HS [facility] Last Admin: 07/14/17 21:27 Dose: 40 mg Calcium/Vitamin D (Oyster Shell Calcium/Vitamin D 500 Mg-200 Iu) 1 tab PO BIDWM [facility] Last Admin: 07/15/17 08:58 Dose: 1 tab Cholecalciferol (Vitamin D) 2,000 iu PO DAILY [facility] Last Admin: 07/15/17 08:57 Dose: 2,000 intlu Dextrose (Dextrose 50% Inj) 0 ml IV STAT PRN; Protocol PRN Reason: Hypoglycemia Protocol Dextrose (Glutose 15) 0 gm PO ONCE PRN; Protocol PRN Reason: Hypoglycemia Protocol Dipyridamole/Aspirin (Aggrenox 25-200 Mg) 1 ea PO BID [facility] Last Admin: 07/15/17 08:58 Dose: 1 ea Enoxaparin Sodium (Lovenox) 30 mg SC DAILY [facility] PRN Reason: Protocol Last Admin: 07/15/17 08:58 Dose: 30 mg Glucagon (Glucagen Diagnostic Kit) 0 mg IM STAT PRN; Protocol PRN Reason: Hypoglycemia Protocol Insulin Detemir (Levemir) 5 units SC HS [facility] Last Admin: 07/14/17 22:10 Dose: 5 units Insulin Human Regular (Humulin R) 0 units SC BIDWM [facility] PRN Reason: Protocol Last Admin: 07/15/17 08:00 Dose: Not Given Lisinopril (Zestril) 20 mg PO DAILY [facility] Last Admin: 07/15/17 09:01 Dose: 20 mg Multivitamins/Minerals (Therapeutic-M Tab) 1 tab PO DAILY [facility] Last Admin: 07/15/17 08:57 Dose: 1 tab Nystatin (Nystatin Oral Susp) 5 ml PO QID [facility] Last Admin: 07/15/17 08:58 Dose: 5 ml Saliva Substitute (First Magic Mouthwash) 5 ml PO QID [facility] Last Admin: 07/15/17 08:58 Dose: 5 ml Sertraline HCl (Zoloft) 50 mg PO DAILY [facility] Last Admin: 07/15/17 08:57 Dose: 50 mg Sitagliptin Phosphate (Januvia) 50 mg PO DAILY [facility] Last Admin: 07/15/17 08:57 Dose: 50 mg - Labs Labs: 07/15/17 05:40 07/15/17 14:25 PT 12.0 Seconds (9.8-13.1) 07/02/17 06:26 INR 1.1 (0.9-1.2) 07/02/17 06:26 APTT 24.7 Seconds (25.6-37.1) L 07/02/17 06:26 - Head Exam Head Exam: ATRAUMATIC, NORMAL INSPECTION, NORMOCEPHALIC - Eye Exam Eye Exam: EOMI, Normal appearance, PERRL Pupil Exam: NORMAL ACCOMODATION - Neck Exam Neck Exam: Normal Inspection - Respiratory Exam Respiratory Exam: NORMAL BREATHING PATTERN - Cardiovascular Exam Cardiovascular Exam: REGULAR RHYTHM - GI/Abdominal Exam GI & Abdominal Exam: Soft, Normal Bowel Sounds - Rectal Exam Rectal Exam: NORMAL INSPECTION - Exam External exam: NORMAL EXTERNAL EXAM - Extremities Exam Extremities Exam: Full ROM, Normal Capillary Refill - Back Exam Back Exam: NORMAL INSPECTION - Neurological Exam Neurological Exam: Alert, Awake Neuro motor strength exam: Left Upper Extremity: 2/1, Right Upper Extremity: 3, Left Lower Extremity: 3, Right Lower Extremity: 3 - Psychiatric Exam Psychiatric exam: Normal Affect, Normal Mood - Skin Skin Exam: Dry, Intact Assessment and Plan (1) Closed fracture of left distal radius Assessment & Plan: plan for physicla, occupational and rec therapy Status: Acute (2) Displaced fracture of left ulna styloid process, initial encounter for closed fracture Status: Acute (3) Episode of generalized weakness Status: Acute (4) Hyperglycemia Status: Acute (5) Hypertension Status: Acute (6) Traumatic subarachnoid hemorrhage Status: Acute
--- NOTE | 2017-07-15 15:11 | CP.PCM.PN ---
<Kristi Chan - Last Filed: 07/15/17 16:28> Subjective - Date & Time of Evaluation Date of Evaluation: 07/15/17 Time of Evaluation: 07:40 - Subjective Subjective: 86 y/o female seen in acute rehab this morning. Says her diarrhea has resolved at this time. Tolerating breakfast well this morning. Short arm cast is intact to her left arm. Denies pain, tingling, numbness or burning in left wrist or hand. Denies confusion, dizziness, or lightheadedness. Denies any mouth pain or irritation today. Denies F/C/N/V/CP/SOB Objective - Vital Signs/Intake and Output Vital Signs (last 24 hours): Temp Pulse Resp BP Pulse Ox 98.1 F 68 22 124/78 97 07/15/17 09:04 07/15/17 09:04 07/15/17 09:04 07/15/17 09:04 07/15/17 09:04 - Medications Medications: Current Medications Acetaminophen (Tylenol 325mg Tab) 650 mg PO Q6 PRN PRN Reason: Pain, Mild (1-3) Last Admin: 07/10/17 11:43 Dose: 650 mg Atorvastatin Calcium (Lipitor) 40 mg PO HS [facility] Last Admin: 07/14/17 21:27 Dose: 40 mg Calcium/Vitamin D (Oyster Shell Calcium/Vitamin D 500 Mg-200 Iu) 1 tab PO BIDWM [facility] Last Admin: 07/15/17 08:58 Dose: 1 tab Cholecalciferol (Vitamin D) 2,000 iu PO DAILY [facility] Last Admin: 07/15/17 08:57 Dose: 2,000 intlu Dextrose (Dextrose 50% Inj) 0 ml IV STAT PRN; Protocol PRN Reason: Hypoglycemia Protocol Dextrose (Glutose 15) 0 gm PO ONCE PRN; Protocol PRN Reason: Hypoglycemia Protocol Dipyridamole/Aspirin (Aggrenox 25-200 Mg) 1 ea PO BID [facility] Last Admin: 07/15/17 08:58 Dose: 1 ea Enoxaparin Sodium (Lovenox) 30 mg SC DAILY [facility] PRN Reason: Protocol Last Admin: 07/15/17 08:58 Dose: 30 mg Glucagon (Glucagen Diagnostic Kit) 0 mg IM STAT PRN; Protocol PRN Reason: Hypoglycemia Protocol Insulin Detemir (Levemir) 5 units SC [facility] Last Admin: 07/14/17 22:10 Dose: 5 units Insulin Human Regular (Humulin R) 0 units SC BIDWM [facility] PRN Reason: Protocol Last Admin: 07/15/17 08:00 Dose: Not Given Lisinopril (Zestril) 20 mg PO DAILY [facility] Last Admin: 07/15/17 09:01 Dose: 20 mg Multivitamins/Minerals (Therapeutic-M Tab) 1 tab PO DAILY [facility] Last Admin: 07/15/17 08:57 Dose: 1 tab Nystatin (Nystatin Oral Susp) 5 ml PO QID [facility] Last Admin: 07/15/17 08:58 Dose: 5 ml Saliva Substitute (First Magic Mouthwash) 5 ml PO QID [facility] Last Admin: 07/15/17 08:58 Dose: 5 ml Sertraline HCl (Zoloft) 50 mg PO DAILY [facility] Last Admin: 07/15/17 08:57 Dose: 50 mg Sitagliptin Phosphate (Januvia) 50 mg PO DAILY [facility] Last Admin: 07/15/17 08:57 Dose: 50 mg - Labs Labs: 07/15/17 05:40 07/15/17 14:25 PT 12.0 Seconds (9.8-13.1) 07/02/17 06:26 INR 1.1 (0.9-1.2) 07/02/17 06:26 APTT 24.7 Seconds (25.6-37.1) L 07/02/17 06:26 - Constitutional Appears: Well, Non-toxic, No Acute Distress - Head Exam Head Exam: ATRAUMATIC, NORMOCEPHALIC Additional comments: s/p head trauma upon admission no gross deformity noted - Eye Exam Eye Exam: EOMI, Normal appearance Pupil Exam: PERRL - ENT Exam ENT Exam: Mucous Membranes Moist, Normal Exam Additional comments: no mucosal irritation noted no erythema - Neck Exam Neck Exam: Full ROM. absent: Tenderness - Respiratory Exam Respiratory Exam: Clear to Ausculation Bilateral. absent: Chest Wall Tenderness , Respiratory Distress - Cardiovascular Exam Cardiovascular Exam: REGULAR RHYTHM, +S1, +S2 - GI/Abdominal Exam GI & Abdominal Exam: Soft, Normal Bowel Sounds. absent: Tenderness - Rectal Exam Rectal Exam: Deferred - Extremities Exam Extremities Exam: Normal Capillary Refill. absent: Calf Tenderness Additional comments: left wrist in short arm cast; pt able to wiggle fingers and put digits through full ROM without difficulty - Neurological Exam Neurological Exam: Alert, Awake, CN II-XII Intact, Oriented x3 - Psychiatric Exam Psychiatric exam: Normal Affect, Normal Mood - Skin Skin Exam: Dry, Intact Assessment and Plan - Assessment and Plan (Free Text) Assessment: 1) Left Distal Ulna/Radius Fracture -s/p ORIF of L comminuted wrist fracture with Dr. Alcantara -pt in volar splint to LUE - to be left C/D/I -c/w Tylenol and Tramadol prn pain -c/w PT -per ortho, orthopedically stable for D/C; to f/u in [place] office in 2 weeks 2) Fall with traumatic subarachnoid hemorrhage -possibly secondary to seizure/arrythmia/ETOH -Dr. Hayes consulted for neurosurgery, pt cleared for D/C from neurosurgery standpoint -Repeat CT head - no interval change, no acute intracranial abnormalities -Aggrenox resumed per neuro -c/w PT/OT in acute rehab -plan for D/C home once stable for ADLs per rehab 3) Hyponatremia secondary to mild dehydration, resolving -Na+ 123 -Chlorthalidone discontinued -s/p 1L NS -serum osmo 271, urine osmo 411 -urine sodium 72 -continue IV fluids with NS 100 mL/hr -monitor electrolytes 4) IDDM2 -stable -HgA1C: 7.7 -c/w Sitagliptin and insulin coverage scale 5) Throat lesion causing decreased PO intake -pain decreasing, PO intake increasing -continue Nystatin oral suspension, Magic Mouthwash qid -ENT Dr. Zayas on consult, recommends outpatient F/U for resolution of oral lesion 6) Hypertension -d/c Chlorthalidone; Lisinopril resumed -monitor 7) Chronic Kidney Disease -Stage 3B -improving as when compared to 01/2017 values -monitor kidney function 8) Diarrhea, resolving -Senokot discontinued 9) Hyperlipidemia -c/w Atorvastatin -lipid panel WNL 10) Depression -C/w Zoloft 50mg PO daily 11) Diet -c/w heart healthy diet 12) DVT Prophylaxis -SCDs -c/w Aggrenox, Lovenox 13) Code Status -Full Code <Anna Marie Vital - Last Filed: 07/16/17 09:33> Objective - Vital Signs/Intake and Output Vital Signs (last 24 hours): Temp Pulse Resp BP Pulse Ox 98.1 F 73 18 147/66 100 07/16/17 07:53 07/16/17 08:50 07/16/17 07:53 07/16/17 08:50 07/16/17 07:53 Intake and Output: 07/16/17 07/16/17 06:59 18:59 Intake Total 1400 Output Total 800 Balance 600 - Medications Medications: Current Medications Acetaminophen (Tylenol 325mg Tab) 650 mg PO Q6 PRN PRN Reason: Pain, Mild (1-3) Last Admin: 07/15/17 20:10 Dose: 650 mg Atorvastatin Calcium (Lipitor) 40 mg PO HS [facility] Last Admin: 07/15/17 21:51 Dose: 40 mg Calcium/Vitamin D (Oyster Shell Calcium/Vitamin D 500 Mg-200 Iu) 1 tab PO BIDWM [facility] Last Admin: 07/16/17 08:49 Dose: 1 tab Cholecalciferol (Vitamin D) 2,000 intlu PO DAILY [facility] Last Admin: 07/16/17 08:50 Dose: 2,000 intlu Dextrose (Dextrose 50% Inj) 0 ml IV STAT PRN; Protocol PRN Reason: Hypoglycemia Protocol Dextrose (Glutose 15) 0 gm PO ONCE PRN; Protocol PRN Reason: Hypoglycemia Protocol Dipyridamole/Aspirin (Aggrenox 25-200 Mg) 1 ea PO BID [facility] Last Admin: 07/16/17 08:50 Dose: 1 ea Enoxaparin Sodium (Lovenox) 30 mg SC DAILY [facility] PRN Reason: Protocol Last Admin: 07/16/17 08:48 Dose: 30 mg Glucagon (Glucagen Diagnostic Kit) 0 mg IM STAT PRN; Protocol PRN Reason: Hypoglycemia Protocol Sodium Chloride (Sodium Chloride 0.9%) 1,000 mls @ 100 mls/hr IV .Q10H [facility] Stop: 07/16/17 15:38 Last Admin: 07/16/17 02:02 Dose: 100 mls/hr Insulin Detemir (Levemir) 5 units SC [facility] Last Admin: 07/15/17 21:53 Dose: 5 units Insulin Human Regular (Humulin R) 0 units SC BIDWM [facility] PRN Reason: Protocol Last Admin: 07/16/17 07:40 Dose: Not Given Lisinopril (Zestril) 20 mg PO DAILY [facility] Last Admin: 07/16/17 08:50 Dose: 20 mg Multivitamins/Minerals (Therapeutic-M Tab) 1 tab PO DAILY [facility] Last Admin: 07/16/17 08:49 Dose: 1 tab Nystatin (Nystatin Oral Susp) 5 ml PO QID [facility] Last Admin: 07/16/17 08:51 Dose: 5 ml Saliva Substitute (First Magic Mouthwash) 5 ml PO QID [facility] Last Admin: 07/16/17 08:51 Dose: Not Given Sertraline HCl (Zoloft) 50 mg PO DAILY [facility] Last Admin: 07/15/17 08:57 Dose: 50 mg Sitagliptin Phosphate (Januvia) 50 mg PO DAILY [facility] Last Admin: 07/16/17 08:49 Dose: 50 mg - Labs Labs: 07/16/17 08:30 07/16/17 08:30 PT 12.0 Seconds (9.8-13.1) 07/02/17 06:26 INR 1.1 (0.9-1.2) 07/02/17 06:26 APTT 24.7 Seconds (25.6-37.1) L 07/02/17 06:26 Attending/Attestation - Attestation I have personally seen and examined this patient.: Yes I have fully participated in the care of the patient.: Yes I have reviewed all pertinent clinical information, including history, physical exam and plan: Yes Notes (Text): 07/16/17 09:32 ATTENDING NOTE ATTESTATION STATEMENT Patient seen and examined. Case discussed with resident. Patient with hyponatremia, asymptomatic. urine Na pending. Agree with findings and plan.
[2017-07-15] MEDS: Insulin Detemir 100 Units/ml Inj SC SCH (21:53)
[2017-07-16] MEDS: Sodium Chloride 0.9% 1,000 ML IV SCH ×2 (02:02→13:02)
[2017-07-16] MEDS: Insulin Regular 100 units/ml SC SCH (07:40)
[2017-07-16 07:54] VITALS: BP 147/66; PULSE 73; RESP 18; TEMP 98.1; O2SAT 100
[2017-07-16] MEDS: Enoxaparin 30 mg Syringe SC SCH (08:48)
[2017-07-16] MEDS: Multivitamin With Minerals Tab PO SCH (08:49)
[2017-07-16] MEDS: Calcium-Vit D 500 mg-200 Units Tab UD PO SCH (08:49)
[2017-07-16] MEDS: Aspirin-Dipyridamole 200-25 mg ER Cap PO SCH (08:50)
[2017-07-16] MEDS: Cholecalciferol 1,000 INTLU TAB PO SCH (08:50)
[2017-07-16] MEDS: Mag&Al/Simet/Diphen/Lido 237 ML KIT PO SCH ×2 (08:51→13:03)
[2017-07-16] MEDS: Nystatin 100,000 Units/ml Oral Susp 5 ml UD PO SCH ×2 (08:51→13:02)
[2017-07-16 09:09] LABS: BASO % 0.6 % (0.0-2.0); EOS # 0.2 K/uL (0.0-0.7); HEMATOCRIT 34.9 % (34.0-47.0); LYMPH # 1.5 K/uL (1.0-4.3); LYMPH % 20.6 % (20.0-40.0); MEAN CELL VOLUME 98.2 fl (81.0-99.0); MEAN CORPUSCULAR HEMOGLOBIN 32.7 pg (27.0-31.0); MEAN CORPUSCULAR HGB CONC 33.3 g/dL (33.0-37.0); MEAN PLATELET VOLUME 9.7 fl (7.2-11.7); MONO # 0.5 K/uL (0.0-0.8); MONO % 7.2 % (0.0-10.0); NEUT # 5.1 K/uL (1.8-7.0); NEUT % 68.6 % (50.0-75.0); NRBC % 0.1 % (0.0-0.0); RED CELL DISTRIBUTION WIDTH 12.6 % (11.5-14.5); WHITE BLOOD COUNT 7.4 K/uL (4.8-10.8)
[2017-07-16 09:22] LABS: ALB/GLOB RATIO 1.2 (1.0-2.1); ALKALINE PHOSPHATASE 63 U/L (38-126); ALT/SGPT 39 U/L (9-52); AST/SGOT 23 U/L (14-36); BILIRUBIN,TOTAL 0.6 mg/dl (0.2-1.3); BLOOD UREA NITROGEN 13 mg/dl (7-17); CALCIUM 9.1 mg/dL (8.4-10.2); CARBON DIOXIDE 22 mmol/L (22-30); CHLORIDE 97 mmol/L (98-107); GFR AFRICAN-AMERICAN > 60; GLUCOSE,RANDOM 189 mg/dL (65-105); POTASSIUM 4.4 MMOL/L (3.6-5.0); SODIUM 129 mmol/l (132-148); TOTAL PROTEIN 7.1 G/DL (6.3-8.2)
--- NOTE | 2017-07-16 10:02 | CP.PCM.PN ---
Subjective - Date & Time of Evaluation Date of Evaluation: 07/16/17 Time of Evaluation: 10:01 - Subjective Subjective: Patient seen in room denies sob/cp ambulating 150' with SC in therapies set for d/c home today. will follow up with PMD Objective - Vital Signs/Intake and Output Vital Signs (last 24 hours): Temp Pulse Resp BP Pulse Ox 98.1 F 73 18 147/66 100 07/16/17 07:53 07/16/17 08:50 07/16/17 07:53 07/16/17 08:50 07/16/17 07:53 Intake and Output: 07/16/17 07/16/17 06:59 18:59 Intake Total 1400 Output Total 800 Balance 600 - Medications Medications: Current Medications Acetaminophen (Tylenol 325mg Tab) 650 mg PO Q6 PRN PRN Reason: Pain, Mild (1-3) Last Admin: 07/15/17 20:10 Dose: 650 mg Atorvastatin Calcium (Lipitor) 40 mg PO HS [facility] Last Admin: 07/15/17 21:51 Dose: 40 mg Calcium/Vitamin D (Oyster Shell Calcium/Vitamin D 500 Mg-200 Iu) 1 tab PO BIDWM [facility] Last Admin: 07/16/17 08:49 Dose: 1 tab Cholecalciferol (Vitamin D) 2,000 intlu PO DAILY [facility] Last Admin: 07/16/17 08:50 Dose: 2,000 intlu Dextrose (Dextrose 50% Inj) 0 ml IV STAT PRN; Protocol PRN Reason: Hypoglycemia Protocol Dextrose (Glutose 15) 0 gm PO ONCE PRN; Protocol PRN Reason: Hypoglycemia Protocol Dipyridamole/Aspirin (Aggrenox 25-200 Mg) 1 ea PO BID [facility] Last Admin: 07/16/17 08:50 Dose: 1 ea Enoxaparin Sodium (Lovenox) 30 mg SC DAILY [facility] PRN Reason: Protocol Last Admin: 07/16/17 08:48 Dose: 30 mg Glucagon (Glucagen Diagnostic Kit) 0 mg IM STAT PRN; Protocol PRN Reason: Hypoglycemia Protocol Sodium Chloride (Sodium Chloride 0.9%) 1,000 mls @ 100 mls/hr IV .Q10H [facility] Stop: 07/16/17 15:38 Last Admin: 07/16/17 02:02 Dose: 100 mls/hr Insulin Detemir (Levemir) 5 units SC [facility] Last Admin: 07/15/17 21:53 Dose: 5 units Insulin Human Regular (Humulin R) 0 units SC BIDWM [facility] PRN Reason: Protocol Last Admin: 07/16/17 07:40 Dose: Not Given Lisinopril (Zestril) 20 mg PO DAILY [facility] Last Admin: 07/16/17 08:50 Dose: 20 mg Multivitamins/Minerals (Therapeutic-M Tab) 1 tab PO DAILY [facility] Last Admin: 07/16/17 08:49 Dose: 1 tab Nystatin (Nystatin Oral Susp) 5 ml PO QID [facility] Last Admin: 07/16/17 08:51 Dose: 5 ml Saliva Substitute (First Magic Mouthwash) 5 ml PO QID [facility] Last Admin: 07/16/17 08:51 Dose: Not Given Sertraline HCl (Zoloft) 50 mg PO DAILY [facility] Last Admin: 07/15/17 08:57 Dose: 50 mg Sitagliptin Phosphate (Januvia) 50 mg PO DAILY [facility] Last Admin: 07/16/17 08:49 Dose: 50 mg - Labs Labs: 07/16/17 08:30 07/16/17 08:30 PT 12.0 Seconds (9.8-13.1) 07/02/17 06:26 INR 1.1 (0.9-1.2) 07/02/17 06:26 APTT 24.7 Seconds (25.6-37.1) L 07/02/17 06:26
--- NOTE | 2017-07-16 13:52 | CP.PCM.DIS ---
<Osbaldo Duong - Last Filed: 07/16/17 14:12> Provider - Provider Date of Admission: 06/30/17 18:33 Attending physician: Gwen Garcia MD Time Spent in preparation of Discharge (in minutes): 30 Diagnosis - Discharge Diagnosis (1) Closed fracture of left distal radius Status: Acute Priority: Low (2) Displaced fracture of left ulna styloid process, initial encounter for closed fracture Status: Acute (3) Traumatic subarachnoid hemorrhage Status: Acute Priority: High Hospital Course - Lab Results Lab Results: Most Recent Lab Values WBC 7.4 K/uL (4.8-10.8) 07/16/17 08:30 RBC 3.56 Mil/uL (3.80-5.20) L 07/16/17 08:30 Hgb 11.6 g/dL (12.0-16.0) L 07/16/17 08:30 Hct 34.9 % (34.0-47.0) 07/16/17 08:30 MCV 98.2 fl (81.0-99.0) D 07/16/17 08:30 MCH 32.7 pg (27.0-31.0) H 07/16/17 08:30 MCHC 33.3 g/dL (33.0-37.0) 07/16/17 08:30 RDW 12.6 % (11.5-14.5) 07/16/17 08:30 Plt Count 239 K/uL (130-400) 07/16/17 08:30 MPV 9.7 fl (7.2-11.7) 07/16/17 08:30 Neut % (Auto) 68.6 % (50.0-75.0) 07/16/17 08:30 Lymph % (Auto) 20.6 % (20.0-40.0) 07/16/17 08:30 Grady % (Auto) 7.2 % (0.0-10.0) 07/16/17 08:30 Eos % (Auto) 3.0 % (0.0-4.0) 07/16/17 08:30 Baso % (Auto) 0.6 % (0.0-2.0) 07/16/17 08:30 Neut # 5.1 K/uL (1.8-7.0) 07/16/17 08:30 Lymph # 1.5 K/uL (1.0-4.3) 07/16/17 08:30 Grady # 0.5 K/uL (0.0-0.8) 07/16/17 08:30 Eos # 0.2 K/uL (0.0-0.7) 07/16/17 08:30 Baso # 0.0 K/uL (0.0-0.2) 07/16/17 08:30 PT 12.0 Seconds (9.8-13.1) 07/02/17 06:26 INR 1.1 (0.9-1.2) 07/02/17 06:26 APTT 24.7 Seconds (25.6-37.1) L 07/02/17 06:26 Sodium 129 mmol/l (132-148) L 07/16/17 08:30 Potassium 4.4 MMOL/L (3.6-5.0) 07/16/17 08:30 Chloride 97 mmol/L (98-107) L 07/16/17 08:30 Carbon Dioxide 22 mmol/L (22-30) 07/16/17 08:30 Anion Gap 14 (10-20) 07/16/17 08:30 BUN 13 mg/dl (7-17) 07/16/17 08:30 Creatinine 0.9 mg/dl (0.7-1.2) 07/16/17 08:30 Est GFR ( Amer) > 60 07/16/17 08:30 Est GFR (Non-Af Amer) 60 07/16/17 08:30 POC Glucose (mg/dL) 128 mg/dL (65-110) H 07/16/17 07:06 Random Glucose 189 mg/dL (65-105) H 07/16/17 08:30 Hemoglobin A1c 7.7 % (4.2-6.5) H 07/01/17 13:11 Serum Osmolality 271 mosm/kg (272-300) L 07/15/17 10:20 Calcium 9.1 mg/dL (8.4-10.2) 07/16/17 08:30 Iron 25 ug/dL (37-170) L 07/03/17 08:03 TIBC 258 ug/dL (250-450) 07/03/17 08:03 % Saturation 10 % (20-55) L 07/03/17 08:03 Ferritin 53.8 ng/Ml (11.1-264.0) 07/03/17 08:03 Total Bilirubin 0.6 mg/dl (0.2-1.3) 07/16/17 08:30 AST 23 U/L (14-36) 07/16/17 08:30 ALT 39 U/L (9-52) 07/16/17 08:30 Alkaline Phosphatase 63 U/L (38-126) 07/16/17 08:30 Total Protein 7.1 G/DL (6.3-8.2) 07/16/17 08:30 Albumin 3.9 g/dL (3.5-5.0) 07/16/17 08:30 Globulin 3.2 gm/dL (2.2-3.9) 07/16/17 08:30 Albumin/Globulin Ratio 1.2 (1.0-2.1) 07/16/17 08:30 Triglycerides 90 mg/DL (0-149) 07/04/17 11:29 Cholesterol 101 mg/dL (0-199) 07/04/17 11:29 LDL Cholesterol Direct 38 mg/dL (0-129) 07/04/17 11:29 HDL Cholesterol 34 MG/DL (30-70) 07/04/17 11:29 Vitamin B12 484 pg/mL (239-931) 07/03/17 08:03 Folate 16.9 ng/mL 07/03/17 08:03 Urine Osmolality 411 mosm/kg (300-1000) 07/15/17 14:00 Ur Random Sodium 72 meq/L 07/15/17 16:14 Ur Random Potassium 23.0 mmol/L 07/15/17 16:14 - Hospital Course Hospital Course: 86 YO F w/ PMH of DM2, HTN, HLD, CKD s/p CVA presented to the hospital on s/p fall syncopal episode. Initial CT showed a small subarachnoid hemorrhage which resolved over the stay in the hospital, a repeat CT was done which was negative. She was also found to have a left wrist fracture for which she was taken to surgery and had ORIF of the left distal radius with ortho on 06/29/17. She was then transfered to Acute rehab where she has been having PT/OT. 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 Urine osmo : 411, Urine Sodium 73. Repeat serum sodium before discharge 129. Home meds: Aggrenox 25 BID Lipitor 40 PO HS Calcium/ Vit D Occuvite Docusate sodium/ Sennosides 2 tabs po hs Zoloft 50 mg dialy Januvia 50 mg PO daily Glargine 10 HS Lisinopril 20 - Continue Zoloft and D/C Chlorthalidone, Script has been given to repeat Urine Lytes and CMP. Follow up on Aug 02, 2016, to follow up with Hyponatremia and ER follow up. If Sodium levels continue to decrease, may possibly need to switch zoloft for mirtazapine or another antidepressant. Discharge Exam - Head Exam Head Exam: NORMOCEPHALIC - Eye Exam Eye Exam: Normal appearance - Respiratory Exam Respiratory Exam: Clear to PA & Lateral, NORMAL BREATHING PATTERN. absent: Rales, Rhonchi, Wheezes - Cardiovascular Exam Cardiovascular Exam: REGULAR RHYTHM, +S1, +S2 - GI/Abdominal Exam GI & Abdominal Exam: Normal Bowel Sounds, Soft. absent: Tenderness - Extremities Exam Extremities exam: normal capillary refill Additional comments: left wrist in short arm cast. Neuromuscular intact. Able to move fingers. - Neurological Exam Neurological exam: CN II-XII Intact, Normal Gait, Oriented x3 - Skin Skin Exam: Normal Color, Warm Discharge Plan - Discharge Medications Prescriptions: Aspirin/Dipyridamole [Aggrenox 25 mg-200 mg Capsule] 1 cap PO BID #30 cpmp.12hr Atorvastatin [Lipitor] 40 mg PO HS 30 Days tab Calcium/Vitamin D [Oyster Shell Calcium/Vitamin D 500 mg-200 IU] 1 tab PO BIDWM #30 tab Cu/Se/Vit A/Vit C/Vit E/Zinc [Ocuvite] 1 tab PO DAILY #30 tab Docusate Sodium/Sennosides A [Senokot S 50 MG-8.6 MG] 2 tab PO HS 30 Days tab Insulin Glargine,Hum.rec.anlog [Lantus] 10 unit SQ HS 30 Days vial Lisinopril [Zestril] 20 mg PO DAILY #30 tab Multimineral/Multivitamin [Therapeutic-M Tab] 1 tab PO DAILY #30 tab Sertraline [Zoloft] 50 mg PO DAILY #30 tab SITagliptin [Januvia] 50 mg PO DAILY 30 Days tab - Follow Up Plan Condition: GOOD Disposition: HOME/ ROUTINE Instructions: Patient Safety in the Hospital (GEN) Additional Instructions: please see DC summary - Follow up with Dr. Garcia on Aug 02, 2017. - F/U with Dr. Alcantara in 2 weeks - F/U with Dr. Zayas for oral lesion if continues to cause discomfort - Return to the ER if symptoms worsen or reoccur. - Have a great holiday Referrals: Gwen Garcia MD [Staff Provider] - Jimmy Zayas MD [Staff Provider] - Tate Alcantara III, MD [Staff Provider] - <Anna Marie Vital - Last Filed: 07/17/17 09:18> Provider - Provider Date of Admission: 06/30/17 18:33 Attending physician: Gwen Garcia MD Hospital Course - Lab Results Lab Results: Most Recent Lab Values WBC 7.4 K/uL (4.8-10.8) 07/16/17 08:30 RBC 3.56 Mil/uL (3.80-5.20) L 07/16/17 08:30 Hgb 11.6 g/dL (12.0-16.0) L 07/16/17 08:30 Hct 34.9 % (34.0-47.0) 07/16/17 08:30 MCV 98.2 fl (81.0-99.0) D 07/16/17 08:30 MCH 32.7 pg (27.0-31.0) H 07/16/17 08:30 MCHC 33.3 g/dL (33.0-37.0) 07/16/17 08:30 RDW 12.6 % (11.5-14.5) 07/16/17 08:30 Plt Count 239 K/uL (130-400) 07/16/17 08:30 MPV 9.7 fl (7.2-11.7) 07/16/17 08:30 Neut % (Auto) 68.6 % (50.0-75.0) 07/16/17 08:30 Lymph % (Auto) 20.6 % (20.0-40.0) 07/16/17 08:30 Grady % (Auto) 7.2 % (0.0-10.0) 07/16/17 08:30 Eos % (Auto) 3.0 % (0.0-4.0) 07/16/17 08:30 Baso % (Auto) 0.6 % (0.0-2.0) 07/16/17 08:30 Neut # 5.1 K/uL (1.8-7.0) 07/16/17 08:30 Lymph # 1.5 K/uL (1.0-4.3) 07/16/17 08:30 Grady # 0.5 K/uL (0.0-0.8) 07/16/17 08:30 Eos # 0.2 K/uL (0.0-0.7) 07/16/17 08:30 Baso # 0.0 K/uL (0.0-0.2) 07/16/17 08:30 PT 12.0 Seconds (9.8-13.1) 07/02/17 06:26 INR 1.1 (0.9-1.2) 07/02/17 06:26 APTT 24.7 Seconds (25.6-37.1) L 07/02/17 06:26 Sodium 129 mmol/l (132-148) L 07/16/17 08:30 Potassium 4.4 MMOL/L (3.6-5.0) 07/16/17 08:30 Chloride 97 mmol/L (98-107) L 07/16/17 08:30 Carbon Dioxide 22 mmol/L (22-30) 07/16/17 08:30 Anion Gap 14 (10-20) 07/16/17 08:30 BUN 13 mg/dl (7-17) 07/16/17 08:30 Creatinine 0.9 mg/dl (0.7-1.2) 07/16/17 08:30 Est GFR ( Amer) > 60 07/16/17 08:30 Est GFR (Non-Af Amer) 60 07/16/17 08:30 POC Glucose (mg/dL) 128 mg/dL (65-110) H 07/16/17 07:06 Random Glucose 189 mg/dL (65-105) H 07/16/17 08:30 Hemoglobin A1c 7.7 % (4.2-6.5) H 07/01/17 13:11 Serum Osmolality 271 mosm/kg (272-300) L 07/15/17 10:20 Calcium 9.1 mg/dL (8.4-10.2) 07/16/17 08:30 Iron 25 ug/dL (37-170) L 07/03/17 08:03 TIBC 258 ug/dL (250-450) 07/03/17 08:03 % Saturation 10 % (20-55) L 07/03/17 08:03 Ferritin 53.8 ng/Ml (11.1-264.0) 07/03/17 08:03 Total Bilirubin 0.6 mg/dl (0.2-1.3) 07/16/17 08:30 AST 23 U/L (14-36) 07/16/17 08:30 ALT 39 U/L (9-52) 07/16/17 08:30 Alkaline Phosphatase 63 U/L (38-126) 07/16/17 08:30 Total Protein 7.1 G/DL (6.3-8.2) 07/16/17 08:30 Albumin 3.9 g/dL (3.5-5.0) 07/16/17 08:30 Globulin 3.2 gm/dL (2.2-3.9) 07/16/17 08:30 Albumin/Globulin Ratio 1.2 (1.0-2.1) 07/16/17 08:30 Triglycerides 90 mg/DL (0-149) 07/04/17 11:29 Cholesterol 101 mg/dL (0-199) 07/04/17 11:29 LDL Cholesterol Direct 38 mg/dL (0-129) 07/04/17 11:29 HDL Cholesterol 34 MG/DL (30-70) 07/04/17 11:29 Vitamin B12 484 pg/mL (239-931) 07/03/17 08:03 Folate 16.9 ng/mL 07/03/17 08:03 Urine Osmolality 411 mosm/kg (300-1000) 07/15/17 14:00 Ur Random Sodium 72 meq/L 07/15/17 16:14 Ur Random Potassium 23.0 mmol/L 07/15/17 16:14 Attending/Attestation - Attestation I have personally seen and examined this patient.: Yes I have fully participated in the care of the patient.: Yes I have reviewed all pertinent clinical information, including history, physical exam and plan: Yes Notes (Text): 07/17/17 09:18 Attending note Attestation Patient seen and examined. Case discussed with Resident. Agree with findings and plan.
== END 2017-07-16 14:18 | disposition home or self-care (01) | DRG 945 ==
PROVIDERS: ADMIT Family Medicine; ATTEND Family Medicine
PROC: F07Z5FZ Bed Mobility Treatment using Assistive, Adaptive, Supportive or Protective Equipment (ICD-10-PCS; principal; 2017-06-30)
PROC: F07Z9FZ Gait Training/Functional Ambulation Treatment using Assistive, Adaptive, Supportive or Protective Equipment (ICD-10-PCS; 2017-06-30)
PROC: F07Z8FZ Transfer Training Treatment using Assistive, Adaptive, Supportive or Protective Equipment (ICD-10-PCS; 2017-06-30)
PROC: F07L6FZ Therapeutic Exercise Treatment of Musculoskeletal System - Lower Back / Lower Extremity using Assistive, Adaptive, Supportive or Protective Equipment (ICD-10-PCS; 2017-06-30)
PROC: F08Z2FZ Grooming/Personal Hygiene Treatment using Assistive, Adaptive, Supportive or Protective Equipment (ICD-10-PCS; 2017-06-30)
PROC: F08Z1FZ Dressing Techniques Treatment using Assistive, Adaptive, Supportive or Protective Equipment (ICD-10-PCS; 2017-06-30)
DX: S06.6X9D Traumatic subarachnoid hemorrhage with loss of consciousness of unspecified duration, subsequent encounter (principal); E22.2 Syndrome of inappropriate secretion of antidiuretic hormone; I69.354 Hemiplegia and hemiparesis following cerebral infarction affecting left non-dominant side; E11.22 Type 2 diabetes mellitus with diabetic chronic kidney disease; E11.65 Type 2 diabetes mellitus with hyperglycemia; S52.572D Other intraarticular fracture of lower end of left radius, subsequent encounter for closed fracture with routine healing; N18.3 Chronic kidney disease, stage 3 (moderate); E78.5 Hyperlipidemia, unspecified; I12.9 Hypertensive chronic kidney disease with stage 1 through stage 4 chronic kidney disease, or unspecified chronic kidney disease; W19.XXXD Unspecified fall, subsequent encounter; Y92.009 Unspecified place in unspecified non-institutional (private) residence as the place of occurrence of the external cause; Z79.4 Long term (current) use of insulin; F32.9 Major depressive disorder, single episode, unspecified; K59.00 Constipation, unspecified; G47.00 Insomnia, unspecified; S52.612D Displaced fracture of left ulna styloid process, subsequent encounter for closed fracture with routine healing; F43.21 Adjustment disorder with depressed mood; X58.XXXA Exposure to other specified factors, initial encounter; E86.0 Dehydration; T50.2X5A Adverse effect of carbonic-anhydrase inhibitors, benzothiadiazides and other diuretics, initial encounter; M27.8 Other specified diseases of jaws; R19.7 Diarrhea, unspecified

== ENCOUNTER 2018-08-08 12:04 | Emergency (ER) | payer MEDICARE, MEDICAID ==
[2018-08-08 12:04] VITALS: BMI 35.1
[2018-08-08 12:18] VITALS: TEMP 97.9
--- NOTE | 2018-08-08 13:10 | ED PDOC ---
Lower Extremity Pain/Injury Time Seen by Provider: 08/08/18 12:19 Chief Complaint (Nursing): Lower Extremity Problem/Injury Chief Complaint (Provider): Left knee pain History Per: Patient, Customer Manager ([id number]) History/Exam Limitations: no limitations Onset/Duration Of Symptoms: Days, Worse Since Current Symptoms Are (Timing): Still Present Additional Complaint(s): 87 y/o female presents to the ED for an evaluation of left leg pain onset for 2 weeks. Patient was referred to the ED to obtain imagining of the left leg. Patient reports the pain is located on her left leg and it has worsened over the last weeks. She fell one year ago. Otherwise, she denies any trauma or injuries. PMD: Dr. 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), Depression, Diabetes, HTN, Hypercholesterolemia, Chronic Kidney Disease Denies: HIV - Surgical History Surgical History: Hernia Repair (abdominal) - Family History Family History: States: Unknown Family Hx - Social History Current smoker - smoking cessation education provided: No Alcohol: Occasional Drugs: Denies - Immunization History Hx Tetanus Toxoid Vaccination: No Hx Influenza Vaccination: No Hx Pneumococcal Vaccination: No - Home Medications Home Medications: Ambulatory Orders Medication Instructions Recorded RX: Acetaminophen [Tylenol 325mg 650 mg PO Q6 PRN tab 06/30/17 tab] RX: Aspirin/Dipyridamole [Aggrenox 1 cap PO BID #30 cpmp.12hr 07/16/17 25 mg-200 mg Capsule] RX: Atorvastatin [Lipitor] 40 mg PO HS 30 Days tab 07/16/17 RX: Calcium/Vitamin D [Oyster 1 tab PO BIDWM #30 tab 07/16/17 Shell Calcium/Vitamin D 500 mg-200 IU] RX: Cu/Se/Vit A/Vit C/Vit E/Zinc 1 tab PO DAILY #30 tab 07/16/17 [Ocuvite] RX: Docusate Sodium/Sennosides A 2 tab PO HS 30 Days tab 07/16/17 [Senokot S 50 MG-8.6 MG] RX: Insulin Glargine,Hum.rec.anlog 10 unit SQ HS 30 Days vial 07/16/17 [Lantus] RX: Lisinopril [Zestril] 20 mg PO DAILY #30 tab 07/16/17 RX: Multimineral/Multivitamin 1 tab PO DAILY #30 tab 07/16/17 [Therapeutic-M Tab] RX: SITagliptin [Januvia] 50 mg PO DAILY 30 Days tab 07/16/17 RX: Sertraline [Zoloft] 50 mg PO DAILY #30 tab 07/16/17 Sulfamethoxazole/Trimethoprim 1 tab PO BID #20 tab 08/08/18 [Bactrim DS 800 mg-160 mg] - Allergies Allergies/Adverse Reactions: Allergies Allergy/AdvReac Type Severity Reaction Status Date / Time No Known Allergies Allergy Verified 06/30/17 18:32 Review of Systems ROS Statement: Except As Marked, All Systems Reviewed And Found Negative Constitutional: Negative for: Fever, Chills Respiratory: Negative for: Cough, Shortness of Breath Musculoskeletal: Positive for: Leg Pain (left), Other (left knee pain) Skin: Negative for: Rash Physical Exam - Reviewed Nursing Documentation Reviewed: Yes Vital Signs Reviewed: Yes - Physical Exam Appears: Positive for: Well, Non-toxic, No Acute Distress Head Exam: Positive for: ATRAUMATIC, NORMAL INSPECTION, NORMOCEPHALIC Skin: Positive for: Normal Color, Warm, Dry. Negative for: Rash Eye Exam: Positive for: EOMI, Normal appearance, PERRL Cardiovascular/Chest: Positive for: Regular Rate, Rhythm. Negative for: Murmur Respiratory: Positive for: Normal Breath Sounds. Negative for: Decreased Breath Sounds, Wheezing, Respiratory Distress Extremity: Positive for: Other (Jose Martin's sign is negative, no infection, no red streaking, there is warmth). Negative for: Deformity Neurologic/Psych: Positive for: Alert, Oriented (x3). Negative for: Motor/Sensory Deficits - Laboratory Results Result Diagrams: 08/08/18 13:10 08/08/18 13:10 - ECG O2 Sat by Pulse Oximetry: 98 (RA) Pulse Ox Interpretation: Normal Medical Decision Making Medical Decision Making: Time: 1253 Plan: EKG CMP CBC w/ Differential Urinalysis Duplex lower extremity vein left [US] Reevaluation 1440 PRIORS: None. FINDINGS: 2-D, color and duplex Doppler analysis of the lower extremity venous circulation using routine protocol from the femoral veins through the popliteal veins. Venous compressibility: Normal. Flow and augmentation patterns: Normal. Visualized veins upper third of calf: Normal. Zamudio cyst: None. IMPRESSION: No sonographic or Doppler evidence for DVT in left lower extremity. Scribe Attestation: Documented by Zach Sullivan, acting as a scribe for Helio Shaver PA-C. Provider Scribe Attestation: All medical record entries made by the Scribe were at my direction and personally dictated by me. I have reviewed the chart and agree that the record accurately reflects my personal performance of the history, physical exam, medical decision making, and the department course for this patient. I have also personally directed, reviewed, and agree with the discharge instructions and disposition. Pt will be discharged to the clinic (Dr Garcia) with findings Pt is stable for discharge Disposition - Clinical Impression Clinical Impression: Leg pain - Patient ED Disposition Is Patient to be Admitted: No Discussed With : Gwen Garcia Doctor Will See Patient In The: Office Counseled Patient/Family Regarding: Studies Performed, Diagnosis, Need For Followup - Disposition Referrals: Gwen Garcia MD [Family Provider] - Disposition: Routine/Home Disposition Time: 15:11 Condition: STABLE Prescriptions: Sulfamethoxazole/Trimethoprim [Bactrim DS 800 mg-160 mg] 1 tab PO BID #20 tab Instructions: Stretching Exercises for Your Lower Body, Knee Pain Forms: [employer] (Cuban), [employer] (Zimbabwean) Print Language: ARABIC
[2018-08-08 13:19] LABS: BASO % 0.8 % (0.0-2.0); EOS # 0.2 K/uL (0.0-0.7); EOS % 3.2 % (0.0-4.0); HEMOGLOBIN 12.2 g/dL (12.0-16.0); LYMPH # 2.3 K/uL (1.0-4.3); LYMPH % 40.8 % (20.0-40.0); MEAN CELL VOLUME 99.3 fl (81.0-99.0); MEAN CORPUSCULAR HEMOGLOBIN 33.5 pg (27.0-31.0); MEAN CORPUSCULAR HGB CONC 33.7 g/dL (33.0-37.0); MEAN PLATELET VOLUME 10.6 fl (7.2-11.7); MONO # 0.4 K/uL (0.0-0.8); MONO % 6.9 % (0.0-10.0); NEUT # 2.8 K/uL (1.8-7.0); NEUT % 48.3 % (50.0-75.0); NRBC % 0.1 % (0.0-0.0); RBC 3.64 Mil/uL (3.80-5.20); RED CELL DISTRIBUTION WIDTH 12.9 % (11.5-14.5); WHITE BLOOD COUNT 5.7 K/uL (4.8-10.8)
[2018-08-08 13:31] LABS: ALB/GLOB RATIO 1.2 (1.0-2.1); CALCIUM 9.8 mg/dL (8.4-10.2)
[2018-08-08 14:36] LABS: SQUAMOUS EPITHIAL 1 /hpf (0-5); URINE BACTERIA RARE (<OCC); URINE BILIRUBIN NEGATIVE (NEGATIVE); URINE BLOOD NEGATIVE (NEGATIVE); URINE CLARITY SLIGHTY-CLOUDY (Clear); URINE COLOR YELLOW (YELLOW); URINE GLUCOSE (UA) 50 mg/dL (NEGATIVE); URINE LEUKOCYTE ESTERASE MOD Leu/uL (Negative); URINE PROTEIN NEGATIVE (NEGATIVE); URINE UROBILINOGEN 0.2-1.0 mg/dL (0.2-1.0)
--- NOTE | 2018-08-08 14:44 | US ---
Date of service: 08/08/2018 HISTORY: R/O DVT (Dr Garcia). PRIORS: None. FINDINGS: 2-D, color and duplex Doppler analysis of the lower extremity venous circulation using routine protocol from the femoral veins through the popliteal veins. Venous compressibility: Normal. Flow and augmentation patterns: Normal. Visualized veins upper third of calf: Normal. Zamudio cyst: None. IMPRESSION: No sonographic or Doppler evidence for DVT in left lower extremity.
[2018-08-08 15:26] VITALS: BP 138/82; PULSE 77; RESP 19
[2018-08-08 15:54] VITALS: O2SAT 98
--- NOTE | 2018-08-08 18:56 | CARD ---
APPROVED REPORT Date of service: 08/08/2018 EKG Measurement Heart [id number] <Conclusion> Normal sinus rhythm Nonspecific ST and T wave abnormality Abnormal ECG
== END 2018-08-08 15:45 | disposition home or self-care (01) ==
LOC: H.ER 12:04
DX: M79.604 Pain in right leg (principal)